=== PATIENT | male | born 1965 | race Caucasian/White ===

== ENCOUNTER 2017-04-22 11:00 | Outpatient (RCR) | payer BC, SELFPAY | END 2017-04-22 17:00 | disposition home or self-care (01) | LOC: PT 11:00 | PROVIDERS: Family Provider Physician Assistant; Visit Provider Physician Assistant | DX: M54.41 Lumbago with sciatica, right side (principal) | CPT/HCPCS: 97010; 97012; 97014; 97035; 97110; G0283 ==

== ENCOUNTER → 2017-11-10 11:04 | Outpatient (REF) | payer BC, SELFPAY ==
[2017-11-10 13:46] LABS: Basophils # 0.1 K/mm3 (0-0.2); Basophils % 1.3 % (0.1-2.0); Eosinophils # 0.3 K/mm3 (0.0-0.4); Eosinophils % 4.4 % (0.1-12.0); Hematocrit 51.4 % (42.0-52.0); Hemoglobin 17.2 g/dL (14.1-18.0); Lymphocytes # 1.6 K/mm3 (0.7-4.5); Lymphocytes % 25.2 K/mm3 (10-50); Mean Corpuscular HGB Conc 33.4 g/dL (31.8-35.4); Mean Corpuscular Hemoglobin 31.9 pg (27.0-31.2); Mean Corpuscular Volume 95.5 fl (80-94); Mean Platelet Volume 7.5 fl (7.4-10.4); Monocytes # 0.4 K/mm3 (0.1-1.0); Monocytes % 5.9 % (1.7-9.3); Neutrophils % 63.3 % (37.0-80.0); Platelet Count 242 K/mm3 (142-424); Red Blood Count 5.39 M/mm3 (4.60-6.20); Red Cell Distribution Width 13.3 % (11.5-17.5); White Blood Count 6.3 K/mm3 (4.8-10.8)
[2017-11-10 15:35] LABS: Chol/HDL Ratio 4.3 (1-3.5); Cholesterol 239 mg/dL (140-200); HDL Cholesterol 56 mg/dL (27-67); LDL Cholesterol 162 mg/dL (0-130); Triglycerides 107 mg/dL (30-200); VLDL Cholesterol 21 mg/dL (0-40)
[2017-11-10 15:42] LABS: Alanine Aminotransferase 83 U/L (12-78); Albumin Level 3.7 gm/dL (3.4-5.0); Albumin/Globulin Ratio 0.9 (1.1-1.8); Alkaline Phosphatase 146 U/L (46-116); Anion Gap 15.8 mEq/L (5-15); Aspartate Amino Transferase 53 U/L (15-37); Bilirubin,Total 0.5 mg/dL (0.2-1.0); Blood Urea Nitrogen 8 mg/dL (7-18); Calcium 8.9 mg/dL (8.5-10.1); Carbon Dioxide 24 mmol/L (21.0-32.0); Chloride 105 mmol/L (98-107); Creatinine,Serum 0.69 mg/dL (0.70-1.30); Estimated Glomerular Filt Rate 120 ml/min (>60); GFR (African American) 145 ML/MIN (>60); Globulin 4.2 gm/dl (1.3-3.2); Glucose 200 mg/dL (74-106); Potassium 4.8 mmoL/L (3.5-5.1); Sodium 140 mmol/L (136-145); T4 (Thyroxine) 9.2 ug/dl (4.7-13.3); Thyroid Stimulating Hormone 1.15 uIU/ml (0.358-3.740); Total Protein,Serum 7.9 gm/dL (6.4-8.2)
[2017-11-10 17:49] LABS: Hemoglobin A1C 8.3 % (0.0-7.0)
[2017-11-10 19:03] LABS: Amphetamine/Metha Screen,Urine Negative ng/mL (<1000); Barbiturates Screen,Urine Negative ng/mL (<200); Benzodiazepines Screen,Urine Negative ng/mL (<200); Cannabinoid Screen,Urine Positive ng/mL (<50); Cocaine Screen,Urine Negative ng/mL (<300); Methadone Screen,Urine Negative ng/mL (<300); Opiate Screen,Urine Negative ng/mL (<300); Phencyclidine Screen,Urine Negative ng/mL (<25)
== END ==
LOC: LAB 11:04
PROVIDERS: Visit Provider Nurse Practitioner Family
DX: E11.9 Type 2 diabetes mellitus without complications (principal); Z79.899 Other long term (current) drug therapy; G62.9 Polyneuropathy, unspecified
CPT/HCPCS: 80053; 80061; 80305; 82043; 83036; 84436; 84443; 85025

== ENCOUNTER → 2018-01-19 07:44 | Outpatient (CLI) | payer BC, SELFPAY ==
--- NOTE | 2018-01-19 07:45 | US_ITS ---
US abdomen limited History: Ordering Physician:JUSTYNA Rodriguez Patient Age: 52 years Comparison:None Findings: Pancreas:Unremarkable. No obvious mass or abnormal fluid collection. No ductal dilatation Liver:No focal liver lesions demonstrated. Homogeneous echogenicity. No intrahepatic biliary ductal dilatation evident. There is some scattered areas of increased echogenicity in the liver consistent with areas of fatty involvement. Right Kidney:Unremarkable. Normal size and echogenicity. No hydronephrosis Gallbladder:No gallstones, gallbladder wall thickening, pericholecystic fluid, or biliary dilatation. Impression: 1. Mild fatty liver. 2. Otherwise negative right upper quadrant ultrasound
== END ==
PROVIDERS: PCP Physician Assistant; Visit Provider Physician Assistant
DX: R94.5 Abnormal results of liver function studies (principal)
CPT/HCPCS: 76705

== ENCOUNTER → 2018-02-16 15:48 | Outpatient (CLI) | payer BC, SELFPAY ==
[2018-02-17 12:07] LABS: Basophils # 0.1 K/mm3 (0-0.2); Basophils % 1.5 % (0.1-2.0); Eosinophils # 0.2 K/mm3 (0.0-0.4); Eosinophils % 2.7 % (0.1-12.0); Hematocrit 48.8 % (42.0-52.0); Hemoglobin 15.8 g/dL (14.1-18.0); Lymphocytes % 31.9 % (10-50); Mean Corpuscular HGB Conc 32.4 g/dL (31.8-35.4); Mean Corpuscular Volume 98.8 fl (80-94); Monocytes # 0.5 K/mm3 (0.1-1.0); Monocytes % 7.5 % (1.7-9.3); Neutrophils # 3.6 K/mm3 (1.8-7.8); Neutrophils % 56.4 % (37.0-80.0); Platelet Count 255 K/mm3 (142-424); Red Blood Count 4.94 M/mm3 (4.60-6.20); Red Cell Distribution Width 13.9 % (11.5-17.5); White Blood Count 6.3 K/mm3 (4.8-10.8)
[2018-02-17 12:29] LABS: Alanine Aminotransferase 79 U/L (12-78); Albumin Level 3.5 gm/dL (3.4-5.0); Albumin/Globulin Ratio 0.9 (1.1-1.8); Alkaline Phosphatase 159 U/L (46-116); Aspartate Amino Transferase 50 U/L (15-37); Bilirubin,Total 0.6 mg/dL (0.2-1.0); Blood Urea Nitrogen 12 mg/dL (7-18); Calcium 8.8 mg/dL (8.5-10.1); Carbon Dioxide 26 mmol/L (21.0-32.0); Chloride 102 mmol/L (98-107); Chol/HDL Ratio 4.3 (1-3.5); Cholesterol 216 mg/dL (140-200); Creatinine,Serum 0.73 mg/dL (0.70-1.30); Estimated Glomerular Filt Rate 112 ml/min (>60); GFR (African American) 135 ML/MIN (>60); Globulin 3.9 gm/dl (1.3-3.2); Glucose 137 mg/dL (74-106); HDL Cholesterol 50 mg/dL (27-67); LDL Cholesterol 143 mg/dL (0-130); Sodium 140 mmol/L (136-145); T4 (Thyroxine) 9.6 ug/dl (4.7-13.3); Thyroid Stimulating Hormone 1.45 uIU/ml (0.358-3.740); Total Protein,Serum 7.4 gm/dL (6.4-8.2); Triglycerides 115 mg/dL (30-200); VLDL Cholesterol 23 mg/dL (0-40)
[2018-02-18 10:58] LABS: Vitamin D 25 Hydroxy 9.6 ng/mL (30.0-100.0)
== END ==
PROVIDERS: Visit Provider Physician Assistant
DX: G62.9 Polyneuropathy, unspecified (principal); E78.5 Hyperlipidemia, unspecified
CPT/HCPCS: 80053; 80061; 82652; 84436; 84443; 85025

== ENCOUNTER → 2018-05-16 18:39 | Outpatient (CLI) | payer BC, SELFPAY ==
[2018-05-16 18:56] LABS: Basophils # 0.1 K/mm3 (0-0.2); Basophils % 1.5 % (0.1-2.0); Eosinophils # 0.2 K/mm3 (0.0-0.4); Eosinophils % 3.5 % (0.1-12.0); Hematocrit 44.9 % (42.0-52.0); Hemoglobin 15.5 g/dL (14.1-18.0); Lymphocytes # 1.8 K/mm3 (0.7-4.5); Lymphocytes % 29.2 % (10-50); Mean Corpuscular HGB Conc 34.5 g/dL (31.8-35.4); Mean Corpuscular Hemoglobin 32.9 pg (27.0-31.2); Mean Corpuscular Volume 95.4 fl (80-94); Mean Platelet Volume 7.7 fl (7.4-10.4); Monocytes # 0.4 K/mm3 (0.1-1.0); Monocytes % 6.3 % (1.7-9.3); Neutrophils # 3.7 K/mm3 (1.8-7.8); Neutrophils % 59.6 % (37.0-80.0); Platelet Count 229 K/mm3 (142-424); Red Blood Count 4.71 M/mm3 (4.60-6.20); Red Cell Distribution Width 12.9 % (11.5-17.5); White Blood Count 6.2 K/mm3 (4.8-10.8)
[2018-05-16 19:14] LABS: Alanine Aminotransferase 68 U/L (12-78); Albumin Level 3.3 gm/dL (3.4-5.0); Albumin/Globulin Ratio 0.8 (1.1-1.8); Alkaline Phosphatase 155 U/L (46-116); Anion Gap 17.2 mEq/L (5-15); Aspartate Amino Transferase 62 U/L (15-37); Bilirubin,Total 0.4 mg/dL (0.2-1.0); Blood Urea Nitrogen 9 mg/dL (7-18); Calcium 8.8 mg/dL (8.5-10.1); Carbon Dioxide 27 mmol/L (21.0-32.0); Chloride 99 mmol/L (98-107); Chol/HDL Ratio 3.3 (1-3.5); Cholesterol 163 mg/dL (140-200); Creatinine,Serum 0.64 mg/dL (0.70-1.30); Estimated Glomerular Filt Rate 130 ml/min (>60); GFR (African American) 158 ML/MIN (>60); Glucose 170 mg/dL (74-106); HDL Cholesterol 49 mg/dL (27-67); LDL Cholesterol 87 mg/dL (0-130); Potassium 4.2 mmoL/L (3.5-5.1); Sodium 139 mmol/L (136-145); T4 (Thyroxine) 8.8 ug/dl (4.7-13.3); Thyroid Stimulating Hormone 1.12 uIU/ml (0.358-3.740); Total Protein,Serum 7.3 gm/dL (6.4-8.2); Triglycerides 134 mg/dL (30-200); VLDL Cholesterol 27 mg/dL (0-40)
[2018-05-16 20:07] LABS: Hemoglobin A1C 7.1 % (0.0-7.0)
[2018-05-18 13:07] LABS: PSA, Free 0.17 ng/mL; Prostate Specific Ag 0.4 ng/mL (0.0-4.0); Vitamin D 25 Hydroxy 44.7 ng/mL (30.0-100.0)
== END ==
PROVIDERS: Visit Provider Physician Assistant
DX: E11.9 Type 2 diabetes mellitus without complications (principal); G62.9 Polyneuropathy, unspecified; Z79.84 Long term (current) use of oral hypoglycemic drugs
CPT/HCPCS: 80053; 80061; 82652; 83036; 84153; 84154; 84436; 84443; 85025

== ENCOUNTER → 2018-07-18 15:06 | Outpatient (CLI) | payer BC, SELFPAY ==
--- NOTE | 2018-07-18 15:08 | MR_ITS ---
MR lumbar spine wo con, MR 3-d myelogram/MRCP HISTORY: PT states mass on back on LT side. HX lumbar surgery X2YRS. Weakness in LT leg. Pain in LT hip and leg. Numbness in left leg from knee down. ITS.REASON: LOCALIZED SWELLING, MASS AND LUMP, TRUNK ORDERING PHYSICIAN: Bre Rodriguez APRN PATIENT AGE: 52 years Comparison: MRI 01-25-17 TECHNIQUE: Standard multiplanar multiecho sequences are performed without contrast. 3-D MIP and myelographic images are also rendered and reviewed FINDINGS: There is normal alignment. The spinal cord ends at the L1 level. T11-T12: Mild degenerative disc disease. T12-L1: Mild degenerative disc disease. L1-L2: Unremarkable. L2-L3: Mild facet and ligamentum flavum hypertrophy with mild bilateral lateral recess narrowing. L3-L4: Mild facet ligamentum flavum hypertrophy with mild degenerative disc disease and mild bilateral lateral recess and foraminal narrowing. L4-L5: There is an area of isointense T1 and T2 signal in the right paracentral foraminal region which may be related to residual or recurrent disc herniation. Epidural fibrosis would be included in the differential diagnosis in this patient with prior lumbar surgery. Consider repeat exam with gadolinium enhancement for differentiation. There is impingement upon the right L5 nerve root with moderate right lateral recess and foraminal narrowing. Facet and ligamentum hypertrophy is also present at this level with mild left lateral recess and foraminal narrowing. There is some mild bone marrow edema involving the inferior endplate of L4 posteriorly L5-S1: Mild bulging disc with mild facet and ligamentum flavum hypertrophy with mild bilateral foraminal narrowing. IMPRESSION: 1. Residual or recurrent disc herniation at L4-L5 right paracentral/foraminal region as described above. This is impinging upon the L5 nerve root. Epidural fibrosis is included in the differential diagnosis. Repeat exam with gadolinium enhancement may be of further value. 2. Lumbar spondylosis with facet and ligamentum flavum hypertrophy and degenerative disc disease with lateral recess and foraminal narrowing. Please see above for detailed description at each level. 3. No obvious soft tissue mass evident in the areas imaged.. It is unknown exactly where the patients reported palpable abnormality is as it is not made clear on the history sheet and not marked by the technologist
== END ==
PROVIDERS: PCP Nurse Practitioner Family; Visit Provider Nurse Practitioner Family
DX: R22.2 Localized swelling, mass and lump, trunk (principal)
CPT/HCPCS: 72148; 76376

== ENCOUNTER → 2019-07-02 07:39 | Outpatient (CLI) | payer BC, SELFPAY ==
--- NOTE | 2019-07-02 07:44 | US_ITS ---
PROCEDURE: US ABDOMEN LIMITED CLINICAL INDICATION: WEIGHT LOSS Weight loss COMPARISON: [facility] US abdomen limited from 01/19/2018 FINDINGS: PANCREAS: The tail the pancreas is not well delineated due overlying bowel gas. There is questionable mass or cystic collection in the tail the pancreas. Suggest CT with out and with contrast with pancreatic protocol for further evaluation. This area measures approximately 2.4 cm. LIVER: No focal liver lesions demonstrated. Homogeneous echogenicity. No intrahepatic biliary ductal dilatation evident. There is appropriate direction of blood flow within a non dilated portal vein RIGHT KIDNEY: Unremarkable. Normal size and echogenicity. No hydronephrosis GALLBLADDER: No gallstones, gallbladder wall thickening, pericholecystic fluid, or biliary dilatation. IMPRESSION: Possible mass or cyst in the pancreatic tail. Suggest CT with pancreatic protocol without and with contrast for further evaluation. Dictated by: Roger Varela MD 07/02/2019 10:45 Electronically signed by Roger Varela MD in [place] 07/02/2019 10:45
--- NOTE | 2019-07-02 07:46 | XR_ITS ---
PROCEDURE: XR CHEST 2V CLINICAL HISTORY: ABNORMAL WEIGHT LOSS COMPARISON: CXR CHEST(2 VIEWS-NOT PORTABLE) from 04/14/2015 [facility] CTA-CHEST from 12/02/2015 CXR CHEST(2 VIEWS-NOT PORTABLE) from 12/02/2015 FINDINGS: The cardiomediastinal silhouette and pulmonary vascularity are within normal limits. The lungs are clear without infiltrates, suspicious nodules, or pleural effusions. No acute bony abnormalities. IMPRESSION: No acute findings. Dictated by: Dr. Jonah Piper MD 07/02/2019 08:[address] Jonah Piper MD in [place] 07/02/2019 08:08
== END ==
PROVIDERS: PCP Nurse Practitioner Family; Visit Provider Nurse Practitioner Family
DX: R63.4 Abnormal weight loss (principal)
CPT/HCPCS: 71046; 76705

== ENCOUNTER → 2019-07-04 12:03 | Outpatient (CLI) | payer BC, SELFPAY ==
--- NOTE | 2019-07-04 12:09 | CT_ITS ---
PROCEDURE: CT ABDOMEN WO/W CON CLINICAL HISTORY: NEOPLASM Weight loss, possible pancreatic mass noted on recent ultrasound COMPARISON: US ABDOMEN LIMITED from 07/02/2019 TECHNIQUE: Images are obtained without and with contrast utilizing 75 mL Optiray 350 and oral Gastrografin Axial images obtained with sagittal and coronal reformats. All CT scans at the facility use one or more dose reduction, viz: automated exposure control, ma/kV adjustment per patient size (including targeted exams where dose is matched to indication, i.e. head), or iterative reconstruction technique. FINDINGS: There are minimal atelectatic changes in the left lung base. No focal liver lesion. There is some minimal lobularity of the hepatic surface along the inferior aspect of the right hepatic lobe of questionable clinical significance. Please correlate with liver function test. The spleen, adrenal glands, and kidneys have an unremarkable appearance. No renal or ureteral calculi. No pancreatic mass evident. There is some fullness in the tail the pancreas however no definite mass is evident. There are few small peripancreatic and periportal lymph nodes. No acute bony anomalies. The pelvis is not included on this exam. There are degenerative changes of the thoracic and lumbar spine IMPRESSION: . 1. No evidence of pancreatic mass. 2. Minimal lobularity of the hepatic surface which could be seen with early cirrhosis. Please correlate with appropriate clinical findings. Dictated by: Roger Varela MD 07/05/2019 14:10 Electronically signed by Roger Varela MD in [facility] 07/05/2019 14:10
[2019-07-04 13:12] LABS: Chloride 95 mmol/L (98-107); Potassium 4.5 mmoL/L (3.5-5.1); Sodium 130 mmol/L (136-145)
[2019-07-04 13:15] LABS: Anion Gap 11.5 mEq/L (5-15); Blood Urea Nitrogen 10 mg/dl (9-20); Carbon Dioxide 28 mmol/L (22.0-30.0); Estimated Glomerular Filt Rate 140 ml/min (>60); GFR (African American) 169 ML/MIN (>60)
[2019-07-04 13:16] LABS: Calcium 9.6 mg/dl (8.4-10.2); Glucose 143 mg/dl (74-100)
[2019-07-05 11:16] LABS: CEA 4.2 ng/mL (0.0-4.7)
== END ==
PROVIDERS: PCP Nurse Practitioner Family; Visit Provider Nurse Practitioner Family
DX: D37.8 Neoplasm of uncertain behavior of other specified digestive organs (principal)
CPT/HCPCS: 36415; 74170; 80048; 82378; Q9967

== ENCOUNTER 2019-07-22 13:45 | Observation (INO) | payer BC, SELFPAY ==
[2019-07-22 13:47] VITALS: BP 133/68; PULSE 78; RESP 18; TEMP 36.7; O2SAT 99; BMI 27.2
--- NOTE | 2019-07-22 13:56 | ECG_ITS ---
APPROVED REPORT Exam: Resting ECG HR:75 bpm ECG Measurements Heart Rate 75 AXES MS 132 P 18 QRSd 86 QRS 39 QT 396 T 60 QTc 442 <Conclusion> Normal sinus rhythm Normal ECG Electronically signed by : Aidan Hartman, 07/23/2019 07:15:22
--- NOTE | 2019-07-22 14:06 | XR_ITS ---
PROCEDURE: XR CHEST 2V CLINICAL HISTORY: weak Generalized weakness, smoker COMPARISON: CXR CHEST(2 VIEWS-NOT PORTABLE) from 04/14/2015 [facility] CTA-CHEST from 12/02/2015 CXR CHEST(2 VIEWS-NOT PORTABLE) from 12/02/2015 XR CHEST 2V from 07/02/2019 FINDINGS: The cardiomediastinal silhouette and pulmonary vascularity are within normal limits. The lungs are clear without infiltrates, suspicious nodules, or pleural effusions. No acute bony abnormalities. IMPRESSION: No acute findings. Dictated by: Roger Varela MD 07/22/2019 15:24 Electronically signed by Roger Varela MD in [facility] 07/22/2019 15:24
[2019-07-22 14:07] LABS: POC Glucose,Bedside 105 (70-110)
--- NOTE | 2019-07-22 14:07 | CT_ITS ---
PROCEDURE: CT HEAD/BRAIN WO CON CLINICAL INDICATION: weakness, lightheaded Headache, generalized weakness, lightheadedness COMPARISON: No exams were available for comparison TECHNIQUE: Axial images obtained. All CT scans at the facility use one or more dose reduction, viz: automated exposure control, ma/kV adjustment per patient size (including targeted exams where dose is matched to indication, i.e. head), or iterative reconstruction technique. FINDINGS: No midline shift, mass effect, intracranial hemorrhage, hydrocephalus, or extra-axial fluid collection is evident. There are encephalomalacia changes in the right cerebellar hemisphere inferiorly consistent with old infarction. The calvarium has an unremarkable appearance. No mastoid effusion. No sinus air-fluid level. IMPRESSION: No acute intracranial findings. Old right cerebellar infarction Dictated by: Roger Varela MD 07/22/2019 15:22 Electronically signed by Roger Varela MD in [facility] 07/22/2019 15:22
[2019-07-22 14:27] LABS: Basophils # 0.1 K/mm3 (0-0.2); Basophils % 1.6 % (0.1-2.0); Eosinophils # 0.4 K/mm3 (0.0-0.4); Eosinophils % 4.2 % (0.1-12.0); Hematocrit 48.1 % (42.0-52.0); Hemoglobin 16.9 g/dL (14.1-18.0); Lymphocytes # 2.7 K/mm3 (0.7-4.5); Lymphocytes % 29.4 % (10-50); Mean Corpuscular HGB Conc 35.1 g/dL (31.8-35.4); Mean Corpuscular Hemoglobin 33.8 pg (27.0-31.2); Mean Corpuscular Volume 96.2 fl (80-94); Mean Platelet Volume 7.1 fl (7.4-10.4); Monocytes # 0.4 K/mm3 (0.1-1.0); Monocytes % 4.3 % (1.7-9.3); Neutrophils # 5.5 K/mm3 (1.8-7.8); Neutrophils % 60.5 % (37.0-80.0); Platelet Count 210 K/mm3 (142-424); Red Cell Distribution Width 13.3 % (11.5-17.5); White Blood Count 9.2 K/mm3 (4.8-10.8)
[2019-07-22 14:30] LABS: Chloride 96 mmol/L (98-107); Sodium 130 mmol/L (136-145)
[2019-07-22 14:33] LABS: Alanine Aminotransferase 57 U/L (12-78); Alkaline Phosphatase 219 U/L (38-126); Aspartate Amino Transferase 59 U/L (17-59); Blood Urea Nitrogen 11 mg/dl (9-20); Creatinine Clearance Estimated 145 mL/min (50-200); Estimated Glomerular Filt Rate 117 ml/min (>60); GFR (African American) 142 ML/MIN (>60)
[2019-07-22 14:34] LABS: Albumin Level 4.3 g/dl (3.5-5.0); Albumin/Globulin Ratio 1.1 (1.1-1.8); Calcium 9.5 mg/dl (8.4-10.2); Carbon Dioxide 28 mmol/L (22.0-30.0); Globulin 3.9 g/dL (1.3-3.2); Glucose 105 mg/dl (74-100); Lactic Acid 1.2 mmol/L (0.7-2.1); Total Protein,Serum 8.2 g/dl (6.3-8.2)
[2019-07-22 14:37] LABS: Ethyl Alcohol < 10 mg/dl (0-10)
[2019-07-22 14:39] LABS: C-Reactive Protein 8.9 mg/L (0-4)
--- NOTE | 2019-07-22 14:42 | HMH.EDWEAK ---
ED Disposition Clinical Impression: Near syncope, Tobacco use Diabetes Qualifiers: Diabetes mellitus type: type 2 Diabetes mellitus penitentiary insulin use: unspecified penitentiary insulin use status Diabetes mellitus complication status: with other specified complication Qualified Code(s): E11.69 - Type 2 diabetes mellitus with other specified complication Disposition: Admitted as Observation Condition on Discharge: Good - Critical Care Critical Care Time: No Attestation: On 07/22/19, the high probability of a clinically significant, sudden or life threatening deterioration of the following system(s) required my full and direct attention, intervention and personal management. The time I documented below is in addition to time spent performing reported procedures but includes the following listed in this critical care notation. Medical Decision Making - Medical Records Medical records reviewed: Yes: I reviewed the patient's medical records. - Delbert Inquiry Pt receiving controlled substance: No Vital Signs: 07/22/19 13:47 Temperature 98.1 F Temperature Source Oral Pulse Rate [Right] 78 Respiratory Rate 18 Blood Pressure [Right Arm] 133/68 Blood Pressure Mean [Right Arm] 89 02 Sat by Pulse Oximetry 99 - Lab Data Lab results reviewed: Yes: I reviewed the patient's lab results. Lab Results 07/22/19 13:56: POC Glucose 105 07/22/19 14:08: WBC 9.2, RBC 5.00, Hgb 16.9, Hct 48.1, MCV 96.2 H, MCH 33.8 H, MCHC 35.1, RDW 13.3, Plt Count 210, MPV 7.1 L, Neut % (Auto) 60.5, Lymph % (Auto) 29.4, [place] % (Auto) 4.3, Eos % (Auto) 4.2, Baso % (Auto) 1.6, Neut # (Auto) 5.5, Lymph # (Auto) 2.7, [place] # (Auto) 0.4, Eos # (Auto) 0.4, Baso # (Auto) 0.1, ESR 14 07/22/19 14:08: Sodium 130 L, Potassium 4.0, Chloride 96 L, Carbon Dioxide 28, Anion Gap 10.0, BUN 11, Creatinine 0.70, Estimated Creat Clear 145, Estimated GFR 117, Est GFR ( Amer) 142, Glucose 105 H, Calcium 9.5, Total Bilirubin 1.0, AST 59, ALT 57, Alkaline Phosphatase 219 H, Troponin I < 0.01, C-Reactive Protein 8.9 H, Total Protein 8.2, Albumin 4.3, Globulin 3.9 H, Albumin/Globulin Ratio 1.1 07/22/19 14:08: Lactate 1.2 07/22/19 14:08: Plasma/Serum Alcohol < 10 07/22/19 14:40: Urine Color Yellow, Urine Appearance Clear, Urine pH 6.0, Ur Specific Buckley 1.010, Urine Protein Negative, Urine Glucose (UA) Negative, Urine Ketones Negative, Urine Blood Negative, Urine Nitrate Negative, Urine Bilirubin Negative, Urine Urobilinogen 1.0, Ur Leukocyte Esterase Negative, Urine RBC Occasional, Urine WBC None, Ur Squamous Epith Cells Occasional, Urine Bacteria None 07/22/19 14:40: Urine Opiates Screen Negative, Urine Methadone Screen Negative, Ur Barbituates Screen Negative, Ur Phencyclidine Scrn Negative, Ur Amphetamines Screen Negative, U Benzodiazepines Scrn Negative, Urine Cocaine Screen Negative, U Marijuana (THC) Screen Positive H Result diagrams: 07/22/19 14:08 07/22/19 14:08 Orders (Tests/Meds): ED MEDICATIONS Generic Name Dose Route Start Last Admin Trade Name Freq PRN Reason Stop Dose Admin Sodium Chloride 1,000 mls @ 999 mls/hr 07/22/19 14:15 07/22/19 14:45 Sod Chlor 0.9% 1000ml Bag IV 07/22/19 15:15 999 mls/hr .Q1H1M NESS Administration ORDERS Category Date Time Status XR chest 2V Stat Exams 07/22/19 14:06 Taken Troponin I Q3H Lab 07/22/19 17:15 Ordered Troponin I Q3H Lab 07/22/19 20:15 Ordered Blood Culture Stat Micro 07/22/19 14:08 Received - Radiology Data #1 Image(s): Chest Image Reviewed: Yes I reviewed the patient's radiology image Preliminary Findings: Normal/NAD - CT Data CT Scan: Head Time Received: 15:[address] Reviewed: Yes: I have viewed the radiologist's interpretation Preliminary Findings: Normal/NAD - ECG Data Tracing #1 Normal Sinus Rhythm: Yes Ischemic changes: non-specific ST-T wave changes - Physician Consults Physician Consulted: [email or web address] Reason -: Admission - Reevaluation(s) Time: 15:31
[2019-07-22 14:43] LABS: Microscopic, Urine URINE MICROSCOPIC (MICROSCOPIC)
[2019-07-22 14:45] LABS: Appearance,Urine CLEAR (Clear); Bilirubin,Urine Negative (Negative); Blood, Urine Negative (Negative); Color,Urine YELLOW (Yellow); Glucose,Urine (UA) Negative (Negative); Ketones,Urine Negative (Negative); Leukocyte Esterase,Urine Negative (Negative); Nitrate,Urine Negative (Negative); Protein,Urine Negative (Negative)
--- NOTE | 2019-07-22 14:45 | PC.NURSE ---
PAGING DR HARRIS AT THIS TIME
[2019-07-22 14:48] LABS: Troponin I < 0.01 ng/ml (0.00-0.034)
[2019-07-22 14:57] LABS: Barbiturates Screen,Urine Negative ng/ml (<200); Benzodiazepines Screen,Urine Negative ng/ml (<200)
[2019-07-22 14:58] LABS: Amphetamine/Metha Screen,Urine Negative ng/ml (<1000); Cannabinoid Screen,Urine Positive ng/ml (<50)
[2019-07-22 14:59] LABS: Cocaine Screen,Urine Negative ng/ml (<300)
[2019-07-22 15:00] LABS: Methadone Screen,Urine Negative ng/ml (<300); Opiate Screen,Urine Negative ng/ml (<300)
[2019-07-22 15:01] LABS: Erythrocyte Sedimentation Rate 14 mm/hr (0-20)
[2019-07-22 15:01] LABS: Phencyclidine Screen,Urine Negative ng/ml (<25)
[2019-07-22 15:03] LABS: RBC,Urine Occasional #/hpf (0-3); Squamous Epithelial Cell,Urine Occasional #/hpf (0-5)
--- NOTE | 2019-07-22 15:06 | PC.NURSE ---
CALLED CHARGE NURSE FOR BED ASSIGNMENT. PATIENT WILL BE ADMITTED TO ROOM 208. ER STAFF NOTIFIED AT THIS TIME.
[2019-07-22 15:41] VITALS: BP 116/78; PULSE 66; RESP 20; TEMP 36.6; O2SAT 98
[2019-07-22 16:00] VITALS: BP 117/69; PULSE 64; RESP 20; TEMP 36.9; O2SAT 100; BMI 26.2
[2019-07-22 16:01] VITALS: PULSE 89
--- NOTE | 2019-07-22 16:23 | HMH.HP ---
*Admission Date: 07/22/19 *Chief complaint: Weakness *History of present illness: This 53-year-old white male came to the emergency room after having an episode where he felt quite weak and wondered if he was having some heart rhythm disturbance. He did not experience chest pain or shortness of breath. The patient does not have known heart disease. He does however describe a heart catheterization 40 years ago due to a suspected anomaly. Apparently the study was normal. He is diabetic and he smokes cigars. He has had hypertension for about 20 years. [facility] History Medical History: Reports:: Diabetes Mellitus Type 2, Hypertension Denies:: Atrial Fibrillation, Cardiomyopathy, Congestive Heart Failure, Palpitations *Have you ever received a pneumonia vaccine?: No *Have you received a flu vaccine this season?: No Other Medical History: Reports: Liver Disease (Cirrhosis). Denies: Hypothyroidism, Thyroid Disease Laterality Cases: Right: Other (Testicular torsion, corrected surgically) Other Surgeries: Yes: Colonoscopy, Colon Resection (Due to diverticulitis. 11 inches of colon he states), Other (Back surgery for degenerative disc disease lumbosacral. 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) Housing: house *Travel in the last 8 weeks: None Family Hx:: Cancer (A sister of cancer), Coronary Artery Disease (Mother and father), Diabetes (Father and sister), Heart Attack (Mother and father), Hypertension, Substance abuse (A brother of drug abuse), Other (A sister of lupus, diabetes, heart disease) Review of Systems - Constitutional Reports lack of energy, Reports weakness, Denies anorexia, Denies body ache(s), Denies chills - Eyes Denies change in vision - *Cardiovascular Reports rapid, pounding, or irregular heartbeat (Pounding), Reports fast heart rate (Possibly), Denies chest pain, Denies irregular heart rhythm, Denies radiating jaw, neck or arm pain - *Respiratory Denies cough - *Gastrointestinal Denies abdominal pain, Denies constipation, Denies loose stools - *Genitourinary Denies difficulty urinating - *Musculoskeletal Reports back pain, Reports radiating pain into limb - Integumentary/Breasts Denies unusual bruising - *Neurologic Reports dizziness, Reports weakness, Denies seizure-like activity, Denies localized weakness, Denies fainting - Psychiatric Denies confusion, Denies depression - Endocrine Reports rapid, pounding, or irregular heartbeat - Allergic/Immunologic Denies wheezing Meds Home Medications Medication Instructions Recorded Confirmed Type Amlodipine Besylate [Norvasc 5mg 5 mg PO QDAY 07/22/19 07/22/19 History tablet] Atorvastatin Calcium [Atorvastatin 10 mg PO DAILY 07/22/19 07/22/19 History 10mg Tab] Lisinopril/Hydrochlorothiazide 20 mg PO DAILY 07/22/19 07/22/19 History [Lisinopril-Hctz 20-12.5 mg Tab] Metformin HCl [Metformin 1000mg 1,000 mg PO BID 07/22/19 07/22/19 History Tablets] Allergies Allergy/AdvReac Type Severity Reaction Status Date / Time morphine Allergy Intermediate I-HIVES Verified 05/16/18 15:29 Exam Vital signs and Labs for Last 24 Hours: Temp Pulse Resp BP Pulse Ox 98.5 F 64 20 117/69 100 07/22/19 16:00 07/22/19 16:00 07/22/19 16:00 07/22/19 16:00 07/22/19 16:00 Laboratory Results - last 24 hr 07/22/19 13:56: POC Glucose 105 07/22/19 14:08: WBC 9.2, RBC 5.00, Hgb 16.9, Hct 48.1, MCV 96.2 H, MCH 33.8 H, MCHC 35.1, RDW 13.3, Plt Count 210, MPV 7.1 L, Neut % (Auto) 60.5, Lymph % (Auto) 29.4, [place] % (Auto) 4.3, Eos % (Auto) 4.2, Baso % (Auto) 1.6, Neut # (Auto) 5.5, Lymph # (Auto) 2.7, [place] # (Auto) 0.4, Eos # (Auto) 0.4, Baso # (Auto) 0.1, ESR 14
--- NOTE | 2019-07-22 17:56 | PC.NURSE ---
New admission, admitted with near syncope, denies any weakness or dizziness since arrival, sitting in bed eating dinner, no s/s of distress noted, vss, will continue to monitor.
[2019-07-22 18:13] LABS: POC Glucose,Bedside 94 (70-110)
[2019-07-22 18:43] LABS: Troponin I < 0.01 ng/ml (0.00-0.034)
[2019-07-22 20:00] VITALS: BP 130/63; PULSE 60; PULSE 76; RESP 16; TEMP 37.1; O2SAT 96
[2019-07-22 20:33] LABS: POC Glucose,Bedside 264 (70-110)
[2019-07-22 21:36] LABS: Troponin I < 0.01 ng/ml (0.00-0.034)
[2019-07-23] VITALS (17 sets, daily range): BP systolic 114–156; BP diastolic 58–91; PULSE 60–80; RESP 16–18; TEMP 36.5–37.2; O2SAT 96–99; BMI 26.2
--- NOTE | 2019-07-23 | IR_ITS ---
APPROVED REPORT Patient Location: OutpatientInpatient PROCEDURES Left heart catheterization Left ventriculogram Selective coronary angiogram INDICATION Numerous risk factors for coronary artery disease, Syncope, Angina pectoris Informed consent was obtained prior to the procedure. COMPLICATIONS none Estimated Blood Loss: less than 10 mls TECHNIQUE One percent lidocaine used to anesthetize the right anterior aspect of the wrist. The right radial artery was accessed via the Seldinger technique. A 6 Upper Sorbian sheath was placed in the right radial artery. 2.5 mg of verapamil, 800 mcg of nitroglycerin, 1mg Lidocaine and 5000 U Heparin were given through the arterial sheath. The trap catheter was also used to perform left heart catheterization, left ventriculogram and selective coronary angiogram. At the end of the procedure the sheath was removed good hemostasis was achieved using Traclet band, patient was transferred to the postop holding area in stable condition. ANGIOGRAPHIC RESULTS The left main artery Normal The left anterior descending artery Has proximal mild calcification with 30% stenosis. There is a mid vessel 50 to 60% stenosis had a 2.75 mm segment supplying the distal third of the LAD The circumflex artery Is a large dominant vessel with diffuse 10% luminal irregularities The right coronary artery Small nondominant normal The MCCLURE ventriculogram reveals Normal 65% The left ventricular end-diastolic pressure 10 mmHg IMPRESSION Coronary artery disease as described above Normal ejection fraction Normal left ventricular end-diastolic pressure PLAN 1. Aggressive risk factor modification 2. The mid LAD stenosis did not contribute to patient's syncope. 3. LDL less than 55 4. Daily aspirin 5. Avoidance of tobacco products 6. Risk factor modification Electronically signed by : Jasvir Storey, 07/23/2019 13:04:41
--- NOTE | 2019-07-23 05:20 | PC.NURSE ---
shift summary, rested well throughout shift, pt educated on metformin and IV dye interactions, and symptoms of hypoglycemia, no c/o of dizziness
[2019-07-23 05:38] LABS: POC Glucose,Bedside 117 (70-110)
[2019-07-23 06:24] LABS: Chloride 106 mmol/L (98-107); Potassium 4.3 mmoL/L (3.5-5.1); Sodium 134 mmol/L (136-145)
[2019-07-23 06:25] LABS: Basophils # 0.1 K/mm3 (0-0.2); Monocytes # 0.3 K/mm3 (0.1-1.0); Neutrophils # 2.5 K/mm3 (1.8-7.8)
[2019-07-23 06:27] LABS: Anion Gap 6.3 mEq/L (5-15); Blood Urea Nitrogen 10 mg/dl (9-20); Carbon Dioxide 26 mmol/L (22.0-30.0); Cholesterol 129 mg/dl (140-200); Creatinine Clearance Estimated 163 mL/min (50-200); Estimated Glomerular Filt Rate 140 ml/min (>60); GFR (African American) 169 ML/MIN (>60); Glucose 126 mg/dl (74-100); Triglycerides 67 mg/dl (30-150); VLDL Cholesterol 13 mg/dL (0-40)
[2019-07-23 06:28] LABS: Chol/HDL Ratio 2.3 (1-3.5); HDL Cholesterol 57 mg/dl (40-60); Magnesium 2.2 mg/dl (1.6-2.3)
[2019-07-23 06:34] LABS: Basophils % 1.8 % (0.1-2.0); Eosinophils # 0.3 K/mm3 (0.0-0.4); Eosinophils % 6.5 % (0.1-12.0); Hematocrit 42.9 % (42.0-52.0); Lymphocytes # 1.8 K/mm3 (0.7-4.5); Lymphocytes % 35.5 % (10-50); Mean Corpuscular HGB Conc 34.7 g/dL (31.8-35.4); Mean Corpuscular Hemoglobin 33.5 pg (27.0-31.2); Mean Corpuscular Volume 96.8 fl (80-94); Mean Platelet Volume 7.2 fl (7.4-10.4); Monocytes % 6.2 % (1.7-9.3); Platelet Count 169 K/mm3 (142-424); Red Blood Count 4.43 M/mm3 (4.60-6.20); Red Cell Distribution Width 13.3 % (11.5-17.5)
[2019-07-23 06:37] LABS: Hemoglobin 14.9 g/dL (14.1-18.0)
[2019-07-23 06:38] LABS: Direct LDL Cholesterol 71.28 mg/dL (100-129)
[2019-07-23 06:57] LABS: Calcium 8.4 mg/dl (8.4-10.2)
--- NOTE | 2019-07-23 07:23 | P.CONPHA_ITS ---
[facility] Pharmacy VTE Monitoring - Patient Demographics Admission date: 07/22/19 Report Date: 07/23/19 (N) Time: 07:23 Allergies/Adverse Reactions: Patient Allergies morphine Allergy (Intermediate, Verified 05/16/18 15:29) I-HIVES Height: 1.78 m Weight: 83.092 kg Patient Problems: Current Active Problems Near syncope (Acute) Tobacco use (Acute) Diabetes (Chronic) - VTE Risk Labs: VTE Related Lab Results Hgb 14.9 g/dL (14.1-18.0) D 07/23/19 05:52 Hct 42.9 % (42.0-52.0) 07/23/19 05:52 Plt Count 169 K/mm3 (142-424) 07/23/19 05:52 BUN 10 mg/dl (9-20) 07/23/19 05:30 Creatinine 0.60 mg/dl (0.66-1.25) L 07/23/19 05:30 Estimated Creat Clear 163 mL/min (50-200) 07/23/19 05:30 Was VTE Risk Assessment Performed: Yes VTE Score: 1 VTE Risk Level: Very Low Risk Clinical Trial Participant: No - Prophylaxis VTE Prophylaxis Ordered?: Yes Types of VTE Prophylaxis: TEDS Knee High
--- NOTE | 2019-07-23 07:44 | HMH.CNCARD ---
History of Present Illness Consult date: 07/23/19 Requesting physician: Shyanne Lou Chief complaint: weakness, palpitations Additional Medical History:: 1. Hypertension, treated for many years 2. Hyperlipidemia, on statin therapy 3. History of diabetes, treated for about 15 years 4. Tobacco use, x30 years with history of 1.5 packs/day, currently smoking cigars A. Abdominal CT, 07/04/2019, nodularity noted of the liver likely related to cirrhotic changes. 5. History of daily alcohol use (previously drank a case of beer per day, currently drinking 4 to 6 16 ounce beers per day) A. Possible cirrhosis on abdominal CT 6. History of surgeries including back surgery, partial colectomy due to diverticulitis and surgery for testicular torsion 7. History of CVA approximately 2017 with interruption in speech that resolved within [address] of the head, O07/22/2019, old right cerebellar infarct noted. 8. History of cardiac catheterization approximately 2004 for possible hole in his heart, reportedly cardiac cath was without abnormality. History of present illness: 53-year-old white male with history as noted above presented to the emergency department for evaluation of severe weakness, feeling his heart beating and lightheadedness. Symptoms onset while at work around 10 AM yesterday prompting him to leave work 30 minutes later. Patient went home and symptoms did not improve after taken a nap and even included some chest tightness without diaphoresis or significant change in breathing. Patient was evaluated in the ER and admitted for observation. Troponins overnight have returned normal. EKG is sinus rhythm with no acute ST segment changes. Telemetry is revealed no arrhythmias overnight. Cardiology was consulted for evaluation recommendation. Patient does relate a questionable abnormality of his heart on cardiac testing approximately 15 years ago with resultant referral for cardiac catheterization that reportedly was unremarkable in [place], [place]. [facility] History Medical History: Reports:: Coronary Artery Disease, Diabetes Mellitus Type 2, Heart Murmur, Hyperlipidemia, Hypertension Denies:: Atrial Fibrillation, Cardiomyopathy, Congestive Heart Failure, MRSA, Palpitations *Have you ever received a pneumonia vaccine?: No *Have you received a flu vaccine this season?: No Other Medical History: Reports: Liver Disease (Cirrhosis). Denies: Hypothyroidism, Thyroid Disease Laterality Cases: Right: Other (Testicular torsion, corrected surgically) Other Surgeries: Yes: Colonoscopy, Colon Resection (Due to diverticulitis. 11 inches of colon he states), Other (Back surgery for degenerative disc disease lumbosacral. 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) Housing: house Household Members: spouse *Travel in the last 8 weeks: None Family Hx:: Cancer (A sister of cancer), Coronary Artery Disease (Mother and father), Diabetes (Father and sister), Heart Attack (Mother and father), Hypertension, Substance abuse (A brother of drug abuse), Other (A sister of lupus, diabetes, heart disease) Meds Home Medications Medication Instructions Recorded Confirmed Type Amlodipine Besylate [Norvasc 5mg 5 mg PO QDAY 07/22/19 07/22/19 History tablet] Lisinopril/Hydrochlorothiazide 20 mg PO BID 07/22/19 07/22/19 History [Lisinopril-Hctz 20-12.5 mg Tab] Metformin HCl [Metformin 1000mg 1,000 mg PO BID 07/22/19 07/22/19 History Tablets] Potassium Gluconate [Potassium] 99 mg PO DAILY 07/22/19 07/22/19 History Simvastatin 5 mg PO HS 07/23/19 07/23/19 History Allergies Allergy/AdvReac Type Severity React
--- NOTE | 2019-07-23 08:00 | CA_ITS ---
APPROVED REPORT EXAM: Comprehensive 2D, Doppler, and color-flow Echocardiogram Secondary Market Manager: Opal Casanova RDCS Ht: 5 ft 10 in Wt: 190lbs BSA: 2.04 BP: 117/69 mmHg Indications: NEAR SYNCOPE, FATIGUE,HTN 2D Dimensions LVOT 2.00 cm (M/F) 1.5-2.5 M-Mode Dimensions RVDd 2.83 cm (0.9-2.6) LVDd 5.26 cm (3.5-5.7) LVDs 4.22 cm (3.5-5.7) IVSd 0.64 cm (0.6-1.1) PWd 0.64 cm (0.6-1.1) EF (Teich) 40.20% FS 19.80% EDV (Teich) 133.00 mL ESV (Teich) 79.50 mL LV Diastology E/A Ratio 1.28 Mitral Valve MV A Velocity 73.00 (40-130 cm/s) Left Ventricle Left atrium is mildly enlarged, the ventricle is normal size, mild concentric left ventricular hypertrophy, visually estimated ejection fraction 55% with no regional wall motion abnormality, diastolic parameters are within normal range. Right Ventricle Right atrium and right ventricular normal size and contractility. Aortic Valve Aortic valve is minimally thickened and fibrosed. There is no aortic stenosis or aortic insufficiency. Mitral Valve Mitral valve is grossly normal, there is mild mitral regurgitation. Tricuspid Valve Tricuspid valve is grossly normal, there is mild tricuspid regurgitation, tricuspid regurgitation jet versus inadequate for calculation of the right ventricular systolic pressure. Pulmonic Valve Pulmonic valve is poorly visualized. Great Vessels Aortic root is normal size. Pericardium No significant pericardial effusion noted. Conclusion 1. Mildly large left atrium, normal left ventricular size, mild concentric left ventricular hypertrophy, visually estimated ejection fraction 55% with no regional wall motion abnormality, diastolic parameters are within normal range pain 2. Mild mitral and tricuspid regurgitation. 3. No significant pericardial effusion noted. Electronically signed by : Kenroy Herman, 07/23/2019 19:36:30
--- NOTE | 2019-07-23 08:18 | HMH.ACPN2 ---
Internal Medicine - PN: Subj *Date: 07/23/19 *Time: 08:18 Interval history: Patient denies chest pain, palpitations, shortness of breath, and nausea. Cardiology has seen the patient and he will have his cardiac cath this a.m. He states he slept little due to nursing interventions. He would like to go home. Troponin I's have been normal. Exam Vital signs and Labs for Last 24 Hours: Temp Pulse Resp BP Pulse Ox 98.5 F 63 18 132/67 99 07/23/19 08:00 07/23/19 08:00 07/23/19 08:00 07/23/19 08:00 07/23/19 08:00 Laboratory Results - last 24 hr 07/22/19 13:56: POC Glucose 105 07/22/19 14:08: WBC 9.2, RBC 5.00, Hgb 16.9, Hct 48.1, MCV 96.2 H, MCH 33.8 H, MCHC 35.1, RDW 13.3, Plt Count 210, MPV 7.1 L, Neut % (Auto) 60.5, Lymph % (Auto) 29.4, [place] % (Auto) 4.3, Eos % (Auto) 4.2, Baso % (Auto) 1.6, Neut # (Auto) 5.5, Lymph # (Auto) 2.7, [place] # (Auto) 0.4, Eos # (Auto) 0.4, Baso # (Auto) 0.1, ESR 14 07/22/19 14:08: Sodium 130 L, Potassium 4.0, Chloride 96 L, Carbon Dioxide 28, Anion Gap 10.0, BUN 11, Creatinine 0.70, Estimated Creat Clear 145, Estimated GFR 117, Est GFR ( Amer) 142, Glucose 105 H, Calcium 9.5, Total Bilirubin 1.0, AST 59, ALT 57, Alkaline Phosphatase 219 H, Troponin I < 0.01, C-Reactive Protein 8.9 H, Total Protein 8.2, Albumin 4.3, Globulin 3.9 H, Albumin/Globulin Ratio 1.1 07/22/19 14:08: Lactate 1.2 07/22/19 14:08: Plasma/Serum Alcohol < 10 07/22/19 14:40: Urine Color Yellow, Urine Appearance Clear, Urine pH 6.0, Ur Specific Blairs 1.010, Urine Protein Negative, Urine Glucose (UA) Negative, Urine Ketones Negative, Urine Blood Negative, Urine Nitrate Negative, Urine Bilirubin Negative, Urine Urobilinogen 1.0, Ur Leukocyte Esterase Negative, Urine RBC Occasional, Urine WBC None, Ur Squamous Epith Cells Occasional, Urine Bacteria None 07/22/19 14:40: Urine Opiates Screen Negative, Urine Methadone Screen Negative, Ur Barbituates Screen Negative, Ur Phencyclidine Scrn Negative, Ur Amphetamines Screen Negative, U Benzodiazepines Scrn Negative, Urine Cocaine Screen Negative, U Marijuana (THC) Screen Positive H 07/22/19 17:14: POC Glucose 94 07/22/19 18:00: Troponin I < 0.01 07/22/19 20:23: POC Glucose 264 H 07/22/19 21:00: Troponin I < 0.01 07/23/19 05:29: POC Glucose 117 H 07/23/19 05:30: Sodium 134 L, Potassium 4.3, Chloride 106, Carbon Dioxide 26, Anion Gap 6.3, BUN 10, Creatinine 0.60 L, Estimated Creat Clear 163, Estimated GFR 140, Est GFR ( Amer) 169, Glucose 126 H, Calcium 8.4 D, Magnesium 2.2, Triglycerides 67, Cholesterol 129 L, LDL Cholesterol Direct 71.28 L, VLDL Cholesterol 13, HDL Cholesterol 57, Cholesterol/HDL Ratio 2.3 07/23/19 05:52: WBC 5.0 D, RBC 4.43 L, Hgb 14.9 D, Hct 42.9, MCV 96.8 H, MCH 33.5 H, MCHC 34.7, RDW 13.3, Plt Count 169, MPV 7.2 L, Neut % (Auto) 50.0, Lymph % (Auto) 35.5, [place] % (Auto) 6.2, Eos % (Auto) 6.5, Baso % (Auto) 1.8, Neut # (Auto) 2.5, Lymph # (Auto) 1.8, [place] # (Auto) 0.3, Eos # (Auto) 0.3, Baso # (Auto) 0.1 I & O for Last 24 hours: Intake & Output 07/20/19 07/21/19 07/22/19 07/23/19 11:59 11:59 11:59 11:59 Intake Total 2776 / 2776 Output Total 850 / 850 Balance 1926 / 1926 Weight 183 lb 3 oz - Constitutional no acute distress - *Routine Respiratory Exam Present: CTA bilaterally (Anteriorly and posteriorly) - *Routine Cardiovascular Exam Present: RRR - *Routine Abdominal Exam Present: soft, normoactive bowel sounds. Absent: tenderness, distended - *Routine Extremities Exam Absent: edema, calf tenderness - *Routine Neurological Exam Present: alert, oriented X3 Assessment and Plan (1) Near syncope Current visit: Yes Status: Acute Category: Medical Code(s): R55 - Syncope and collapse (2) Tobacco use Current visit: Yes Status: Acute Category: Social Hx Code(s): Z72.0 - Tobacco use (3) Diabetes Current visit: Yes Status: Chronic Qualifiers: Diabetes mellitus type: type 2 Diabetes mellitus
--- NOTE | 2019-07-23 08:54 | US_ITS ---
PROCEDURE: US AORTA CLINICAL INDICATION: ASCVD The the COMPARISON: CT ABDOMEN WO/W CON from 07/04/2019 FINDINGS: There is a mild amount of plaque within the aortoiliac vessels some of which is calcific. There is no evidence of aortic aneurysm. The aorta measures up 2 1.3 cm AP and 1.8 cm transverse. IMPRESSION: No evidence of aortic aneurysm. Atherosclerotic changes Dictated by: Roger Varela MD 07/23/2019 14:04 Electronically signed by Roger Varela MD in [place] 07/23/2019 14:04
--- NOTE | 2019-07-23 09:20 | HMH.PHAINT ---
HOME MEDICATIONS RECONCILED FROM SPEAKING TO PHARMACIST AT [facility].
--- NOTE | 2019-07-23 10:34 | PC.NURSE ---
Radiology personnel at bedside for /S.
[2019-07-23 11:57] LABS: POC Glucose,Bedside 125 (70-110)
--- NOTE | 2019-07-23 12:32 | PC.NURSE ---
Pt leaving floor at 1222 via wheelchair with slab stripper staff.
--- NOTE | 2019-07-23 13:41 | PC.NURSE ---
Pt to department at 1338 via stretcher, A & O X4, VSS. Bed locked and in lowest position with side rails up x2, call light within reach.
[2019-07-23 17:24] LABS: POC Glucose,Bedside 144 (70-110)
--- NOTE | 2019-07-23 17:25 | PC.NURSE ---
RN reassessment completed at 1725. Pt is s/p heart catheterization with no stents. VSS. Pt hopeful that he will be discharged today. Tracelet previously removed by Sena Babb, RN 2x2 and tegaderm dressing present to site at this time with no drainage noted. Lung sounds CTA, no c/o SOA. Abd soft and nondistended with BS active in all quads. Pt denies any pain/discomfort. Pt has not been up since returning to floor from cath but has used the urinal several times to void. Pt sitting up in bed talking with visitor and eating dinner tray, no needs/concerns voiced.
--- NOTE | 2019-07-23 19:09 | PC.NURSE ---
report given to omer
--- NOTE | 2019-07-23 22:54 | HMH.DCSUM ---
General - General Admission date:: 07/22/19 Discharge date: 07/23/19 HPI HPI: This 53-year-old white male came to the emergency room after having an episode where he felt quite weak and wondered if he was having some heart rhythm disturbance. He did not experience chest pain or shortness of breath. The patient does not have known heart disease. He does however describe a heart catheterization 40 years ago due to a suspected anomaly. Apparently the study was normal. He is diabetic and he smokes cigars. He has had hypertension for about 20 years. Hospital Course Hospital Course: The patient was placed on a cardiac rehabilitation program director and cardiology was consulted. 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 He had a chest x-ray showing nothing acute. He was seen by cardiology and they wanted to perform a heart cath. The heart cath showed coronary artery disease with a normal ejection fraction. No stents were placed. Cardiology felt the patient should have aggressive risk factor modification but they did not feel the LAD stenosis contributed to his syncope. They started him on a daily aspirin along with atorvastatin 40 mg daily, and a nicotine patch. They felt he could be discharged home and will need to follow-up with them in 1 week. He did have an echo showing an EF of 55%. Alcohol withdrawal was discussed with the patient and an ultrasound was ordered of his aorta. The aortic ultrasound showed no aneurysm. He was discharged home. Objective Vital signs: Temp Pulse Resp BP Pulse Ox 98.0 F 79 18 136/74 97 07/23/19 18:25 07/23/19 18:25 07/23/19 18:25 07/23/19 18:25 07/23/19 18:25 Narrative: Constitutional no acute distress - *Routine HEENT Exam Head: Present: normocephalic Eye: Present: PERRL. Absent: nystagmus ENT: Present: mucous membranes moist - *Routine Neck Exam Present: supple. Absent: carotid bruit - Routine Chest/Breast/Axilla Exam Chest wall: Absent: tenderness - *Routine Respiratory Exam Present: decreased breath sounds. Absent: respiratory distress - *Routine Cardiovascular Exam Present: RRR, S4 - *Routine Abdominal Exam Present: soft, surgical scars (At umbilicus). Absent: tenderness, organomegaly - *Routine Extremities Exam Absent: edema - *Routine Neurological Exam Present: alert, oriented X3, moving all extremities, hearing grossly intact, normal speech. Absent: motor deficit Results Labs on day of discharge: Labs from last 24 hours 07/23/19 07/23/19 07/23/19 17:13 11:28 05:52 WBC 5.0 D RBC 4.43 L Hgb 14.9 D Hct 42.9 MCV 96.8 H MCH 33.5 H MCHC 34.7 RDW 13.3 Plt Count 169 MPV 7.2 L Neut % (Auto) 50.0 Lymph % (Auto) 35.5 [place] % (Auto) 6.2 Eos % (Auto) 6.5 Baso % (Auto) 1.8 Neut # (Auto) 2.5 Lymph # (Auto) 1.8 [place] # (Auto) 0.3 Eos # (Auto) 0.3 Baso # (Auto) 0.1 Sodium Potassium Chloride Carbon Dioxide Anion Gap BUN Creatinine Estimated Creat Clear Estimated GFR Est GFR ( Amer) Glucose POC Glucose 144 H 125 H Calcium Magnesium Triglycerides Cholesterol LDL Cholesterol Direct VLDL Cholesterol HDL Cholesterol Cholesterol/HDL Ratio 07/23/19 07/23/19 05:30 05:29 WBC RBC Hgb Hct MCV MCH MCHC RDW Plt Count MPV Neut % (Auto) Lymph % (Auto) [place] % (Auto) Eos % (Auto) Baso % (Auto) Neut # (Auto) Lymph # (Auto) [place] # (Auto) Eos # (Auto) Baso # (Auto) Sodium 134 L Potassium 4.3 Chloride 106 Carbon Dioxide 26 Anion Gap 6.3 BUN 10 Creatinine 0.60 L Estimated Creat Clear 163 Estimated GFR 140 Est GFR ( Amer) 169 Glucose 126 H POC Glucose 117 H Calcium 8.4 D Magnesium 2.2 Triglycerides 67 Cholesterol 129 L LDL Cholesterol Direct 71.28 L VLDL Cholesterol 13 HDL Cholesterol
== END 2019-07-23 19:45 | disposition home or self-care (01) ==
LOC: ER 13:56 → 2ND 15:33
PROVIDERS: Internal Medicine; Admitting Provider Family Medicine; Emergency Provider Emergency Medicine; PCP Nurse Practitioner Family; Visit Provider Family Medicine
DX: I25.118 Atherosclerotic heart disease of native coronary artery with other forms of angina pectoris (principal); E11.9 Type 2 diabetes mellitus without complications; Z79.84 Long term (current) use of oral hypoglycemic drugs; I10 Essential (primary) hypertension; M51.36 Other intervertebral disc degeneration, lumbar region; F10.10 Alcohol abuse, uncomplicated; Z79.82 Long term (current) use of aspirin; Z79.899 Other long term (current) drug therapy; Z88.5 Allergy status to narcotic agent; Z82.49 Family history of ischemic heart disease and other diseases of the circulatory system
CPT/HCPCS: 36415; 70450; 71046; 76770; 80048; 80053; 80061; 80305; 81001; 82962; 83605; 83735; 84484; 85025; 85651; 86140; 87040; 93005; 93306; 93458; 96365; 99152; 99284; C1725; C1769; G0378; J1644; Q9967

== ENCOUNTER → 2019-08-02 11:16 | Outpatient (CLI) | payer BC, SELFPAY ==
[2019-08-02 14:11] LABS: Coronavirus 19 IgG Antibody Positive (Negative); Coronavirus 19 IgM Antibody Negative (Negative)
== END ==
PROVIDERS: Visit Provider Internal Medicine Gastroenterology
DX: Z01.818 Encounter for other preprocedural examination (principal)
CPT/HCPCS: 36415; 86328

== ENCOUNTER 2019-08-03 08:46 | Day surgery (SDC) | payer BC, SELFPAY ==
[2019-07-31 13:40] VITALS: BMI 26.8
[2019-08-03] VITALS (7 sets, daily range): BP systolic 88–153; BP diastolic 63–85; PULSE 85–97; RESP 18; TEMP 36.1–36.6; O2SAT 94–100
[2019-08-03 09:41] LABS: POC Glucose,Bedside 262 (70-110)
--- NOTE | 2019-08-03 10:23 | HMH.PROC ---
[facility] Procedure Note Procedure Note:: Upper Endoscopy Procedure Report: Esophagogastroduodenoscopy with cold biopsies Endoscopost: Hadley Garrido II, MD Referring Physician: DAX Devries Date of Procedure: August 03, 2019 Equipment: Olympus GIF 180 standard upper endoscope Sedation: MAC sedation Indications: Mr. Mcgill is a 53-year-old gentleman with abnormal weight loss. The patient does state that he had lost nearly 100 pounds since his diverticulitis 11 years ago. However, he has lost an additional 30 pounds in a little over 6 months. He does have some reduced appetite. He reports no abdominal pain or melena. He reports no heartburn, reflux or dysphagia. He has no abdominal pain. This is his first upper endoscopy. He recently had an ultrasound of the abdomen that is reportedly normal. He did have a normal CEA level of 4.2. He had normal hemoglobin 14.9 and hematocrit 42.9. He had elevated liver chemistries/elevated alkaline phosphatase of 219, AST 59 and ALT 57. His total bilirubin was 0.6 and C-reactive protein was 8.9. The patient does smoke 1 pack/day for almost 40 years. Procedure: Prior to the procedure, a history and physical exam was performed, and patient's medications and allergies were reviewed. The risks, benefits and alternatives of the sedation and procedure were discussed with the patient. All questions were answered and informed consent was obtained. The patient was brought to the procedure room. Patient identification and proposed procedure were verified by the physician and the nurse. The patient was placed in a left lateral decubitus position and the scope was passed under direct vision. Throughout the procedure, the patient's blood pressure, pulse, and oxygen saturations were monitored continuously. The upper GI endoscopy was accomplished without difficulty. The patient tolerated the procedure well. Findings: The scope was passed directly into the upper esophagus and advanced to the third portion of the duodenum. The post bulbar duodenum and duodenal bulb were normal with normal mucosa and conniventes. Cold biopsies were taken from the post bulbar duodenum to rule out celiac disease. The scope was withdrawn through a normal duodenal bulb and pylorus into the stomach. There was mild linear reactive gastropathy of the antrum and chronic gastritis of the body and fundus. Biopsies were taken from the antrum and lesser curvature. This was to rule out H. pylori. Upon retroflexion there was no hiatal hernia. The scope was then withdrawn into the esophagus. There were at least 2 tongues of salmon-colored mucosa that were biopsied to rule out Renteria's esophagus. There was no evidence of reflux esophagitis. The remainder of the esophageal mucosa was normal. Impression: 1. Nonerosive GERD 2. Chronic gastritis with mild reactive gastropathy Plan: There was no etiology for the patient's weight loss. Based upon his elevated CRP and alkaline phosphatase elevation, I suspect that he may have granulomatous hepatitis. I will obtain some serologies including SERGEY level, smooth muscle antibody, SOLEDAD, AMA (antimitochondrial antibody), hepatic fibrotic markers. Certainly if these are indicative, I would consider percutaneous liver biopsy.
--- NOTE | 2019-08-03 10:43 | HMH.PROC ---
[facility] Procedure Note Procedure Note:: Colonoscopy Procedure Report: Colonoscopy Endoscopist: Hadley Garrido II, MD Referring physician: DAX Devries Date of Procedure: August 03, 2019 Equipment: Olympus 180 variable stiffness pediatric colonoscope Sedation: MAC sedation Indication: Mr. Mcgill is a 53-year-old gentleman who is here for diagnostic colonoscopy secondary to abnormal weight loss. He had lost 100 pounds since his diverticulitis 11 years ago. He has lost an additional 30 pounds in the last 6 or more months. The patient's recent hemoglobin 14.9 and hematocrit 42.9 were normal. He had a normal CEA of 4.2. He reports some irregular bowel function (constipation alternating with diarrhea). His father had colon cancer at the age of 65. His last colonoscopy has been between 5 and 10 years ago. He reports no abdominal pain or rectal bleeding. He does have an elevated alkaline phosphatase. He is a 40 pack year smoker. Procedure: Prior to the procedure, a history and physical exam was performed, and patient's medications and allergies were reviewed. The risks, benefits and alternatives of the sedation and procedure were discussed with the patient. All questions were answered and informed consent was obtained. The patient was brought to the procedure room. Patient identification and proposed procedure were verified by the physician and the nurse. The patient was placed in a left lateral decubitus position and the scope was passed under direct vision. Throughout the procedure, the patient's blood pressure, pulse, and oxygen saturations were monitored continuously. The colonoscopy was accomplished without difficulty. The patient tolerated the procedure well. Findings: On digital rectal examination there was normal rectal tone. There were no external hemorrhoids. The prostate was 2+, smooth, soft, symmetric without nodules. The colonoscope was introduced through the anal canal to the rectum and advanced to the cecum. The ileocecal valve and appendiceal orifice were identified. The scope was advanced a short distance into the ileum which appeared grossly normal. The scope was then withdrawn into the colon. The cecum, ascending and transverse colon and mucosa were grossly normal. There were scattered diverticuli throughout the descending and sigmoid colon (LEFT colon). The rectum itself was normal. Upon retroflexion within the rectum there were grade 1-2 internal hemorrhoids. The preparation was excellent throughout with Draper Preparation Score of 9. The cecal time was 10 minutes. Impression: 1. Mild left-sided diverticulosis 2. Grade 1-2 internal hemorrhoids Plan: There was no etiology for the patient's abnormal weight loss. I am going to obtain a CT scan of the chest, abdomen and pelvis. Based upon his elevated alkaline phosphatase and elevated C-reactive protein, I do suspect primary autoimmune cholangitis or granulomatous hepatitis. His ultrasound did not apparently show dilated biliary system but I do not have these results. I will obtain some additional serologies. I would encourage dietary measures and bulk fiber supplementation. Based upon the patient's family history, I would recommend repeat screening/surveillance colonoscopy again in 5 years.
[2019-08-03 11:36] LABS: Blood Urea Nitrogen 14 mg/dl (9-20); Creatinine Clearance Estimated 125 mL/min (50-200); Estimated Glomerular Filt Rate 100 ml/min (>60); GFR (African American) 121 ML/MIN (>60)
[2019-08-04 18:33] LABS: Actin (Smooth Muscle) Antibody 4 Units (0-19); Mitochondrial (M2) Antibody 140.6 Units (0.0-20.0)
[2019-08-06 13:10] LABS: Anti-Centromere B Antibodies <0.2 AI (0.0-0.9); Anti-Jo-1 <0.2 AI (0.0-0.9); Anti-Smith Antibody <0.2 AI (0.0-0.9); Antichromatin Antibodies <0.2 AI (0.0-0.9); Antiscleroderma-70 Antibodies <0.2 AI (0.0-0.9); RNP Antibodies <0.2 AI (0.0-0.9); Sjogren's Anti-SS-A <0.2 AI (0.0-0.9); Sjogren's Anti-SS-B <0.2 AI (0.0-0.9)
[2019-08-06 13:42] LABS: Anti-DNA (DS) Ab Qn <1 IU/mL (0-9)
[2019-08-08 02:08] LABS: ALT (SGPT) P5P 77 IU/L (0-55); Alpha 2-Macroglobulins, Qn 427 mg/dL (110-276); Apolipoprotein A-1 142 mg/dL (101-178); Bilirubin, Total 0.3 mg/dL (0.0-1.2); Fibrosis Score 0.77 (0.00-0.21); GGT 699 IU/L (0-65); Haptoglobin 184 mg/dL (29-370); Necroinflammat Activity Grade A3-Severe activity (.); Necroinflammat Activity Score 0.63 (0.00-0.17)
[2019-08-08 18:08] LABS: Angiotensin Converting Enzyme 33 U/L (14-82)
== END 2019-08-03 11:45 | disposition home or self-care (01) ==
LOC: OUTP 08:48
PROVIDERS: PCP Nurse Practitioner Family; Visit Provider Internal Medicine Gastroenterology
PROC: 0DJ08ZZ Inspection of Upper Intestinal Tract, Via Natural or Artificial Opening Endoscopic (ICD-10-PCS; CPT 43235; principal; 2019-08-03 10:00)
DX: K57.30 Diverticulosis of large intestine without perforation or abscess without bleeding (principal); K64.0 First degree hemorrhoids; K21.9 Gastro-esophageal reflux disease without esophagitis; K31.9 Disease of stomach and duodenum, unspecified; K29.50 Unspecified chronic gastritis without bleeding; Z80.0 Family history of malignant neoplasm of digestive organs; Z72.0 Tobacco use; I10 Essential (primary) hypertension; E11.9 Type 2 diabetes mellitus without complications; Z86.73 Personal history of transient ischemic attack (TIA), and cerebral infarction without residual deficits; Z79.899 Other long term (current) drug therapy; Z79.82 Long term (current) use of aspirin
CPT/HCPCS: 45378; 43239; 36415; 81596; 82164; 82565; 82962; 84520; 86225; 86235; 86255; 86256

== ENCOUNTER → 2019-08-08 08:29 | Outpatient (CLI) | payer BC, SELFPAY ==
--- NOTE | 2019-08-08 08:36 | MR_ITS ---
PROCEDURE: MR LUMBAR SPINE WO/W CON CLINICAL INDICATION: INTERVERTEBRAL DISC DISORDERS WITH RADICULOPATHY Prior back surgery, left hip and leg pain TECHNIQUE: Standard multiplanar multiecho sequences are performed without contrast. 3-D MIP and myelographic images are also rendered and reviewed FINDINGS: There is normal alignment. The spinal cord ends at the T12-L1 level. There is multilevel mild degenerative disc disease. Small ventral osteophytes are present at T12-L1 and L1-L2 with mild degenerative disc disease at T12-L1. There is mild facet ligamentum hypertrophy at L1-L2 L2-L3: Facet ligamentum hypertrophy with mild bilateral lateral recess and foraminal narrowing. L3-L4: Facet ligamentum hypertrophy with mild bilateral lateral recess and foraminal narrowing L4-5: Postsurgical changes from prior right laminotomy with facet and ligamentum hypertrophy. Irregularity of the endplates noted at this level with lobular area of isointense T1 and mixed T2 signal in the right paracentral region. Previously this was mostly hypointense on T2 but now show some central increased T2 signal and may be slightly decreased in size causing moderate compression upon the anterior and right aspect of the thecal sac and the right L5 nerve root with severe right lateral recess narrowing. Moderate to severe right-sided foraminal narrowing also noted. This area of isointense T1 signal does demonstrate contrast enhancement and is compatible with epidural fibrosis from. Within the central aspect of this area of enhancement there is a 5 mm area of isointensity and could be due to small disc fragment. L5-S1: Unremarkable. IMPRESSION: 1. Mild multilevel lumbar spondylosis with degenerative disc disease, bulging disc, facet ligamentum hypertrophy. Please see above for detailed description at each level. These findings are not significantly changed. 2. Abnormal anterior extradural defect on the right at L4-5 as described above which does show contrast enhancement compatible with an area of epidural fibrosis with possible small residual disc fragment. This is slightly decreased in size compared to the previous exam with some increasing in T2 signal centrally. Dictated by: Roger Varela MD 08/09/2019 12:45 Electronically signed by Roger Varela MD in [place] 08/09/2019 12:46
== END ==
PROVIDERS: PCP Nurse Practitioner Family; Visit Provider Nurse Practitioner Family
DX: M51.15 Intervertebral disc disorders with radiculopathy, thoracolumbar region (principal)
CPT/HCPCS: 72158; 76376; A9576

== ENCOUNTER → 2019-08-21 09:05 | Outpatient (CLI) | payer BC, SELFPAY ==
--- NOTE | 2019-08-21 09:05 | CT_ITS ---
Procedure: CT ANGIO ABDOMEN CLINICAL HISTORY: feeling of fullness and weight loss 30 lb weight loss, left lower quadrant pain discomfort COMPARISON: No exams were available for comparison TECHNIQUE: IV Contrast: 100ml Optiray 350 Axial images obtained with sagittal and coronal reformats. All CT scans at the facility use one or more dose reduction, viz: automated exposure control, ma/kV adjustment per patient size (including targeted exams where dose is matched to indication, i.e. head), or iterative reconstruction technique. FINDINGS: No evidence abdominal aortic aneurysm or dissection. Mild narrowing of the ostium the celiac artery and proximal aspect of the SMA less than 30 percent. No evidence aneurysm of the celiac or SMA. The DEANN is patent. There is dense calcific atherosclerotic plaque at the distal aspect of the abdominal aorta and the proximal common iliacs with approximately 40 percent stenosis of the ostium the right common iliac and 50 percent stenosis of the proximal left common iliac. Mild calcific plaque is present involving the proximal aspect of the superior right renal artery with less than 30 percent stenosis. There are 2 right renal arteries with the inferior renal artery have an unremarkable appearance. No evidence of the left renal artery stenosis. Nonvascular findings: 7 mm noncalcified nodule left lower lobe. Mildly distended gallbladder. Borderline splenomegaly at 13 cm. Small hiatal hernia. Degenerative changes of the spine IMPRESSION: 1. Atheromatous changes of the aorta and its branches as detailed above with no significant stenotic lesions evident. No aneurysms. 2. 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 7 mm noncalcified left lower lobe pulmonary nodule. Recommend six-month follow-up Dictated by: Roger Varela MD 08/22/2019 11:39 Electronically signed by Roger Varela MD in [place] 08/22/2019 11:39
[2019-08-21 10:13] LABS: Blood Urea Nitrogen 13 mg/dl (9-20); Estimated Glomerular Filt Rate 117 ml/min (>60); GFR (African American) 142 ML/MIN (>60)
== END ==
PROVIDERS: PCP Nurse Practitioner Family; Visit Provider Nurse Practitioner Family
DX: R63.4 Abnormal weight loss (principal); R06.00 Dyspnea, unspecified; R68.81 Early satiety; E78.5 Hyperlipidemia, unspecified; I25.10 Atherosclerotic heart disease of native coronary artery without angina pectoris; E11.69 Type 2 diabetes mellitus with other specified complication; Z79.84 Long term (current) use of oral hypoglycemic drugs; Z72.0 Tobacco use
CPT/HCPCS: 36415; 74175; 82565; 84520; Q9967

== ENCOUNTER → 2019-09-13 10:24 | Outpatient (CLI) | payer SELFPAY ==
[2019-09-13 12:02] LABS: Coronavirus 19 IgM Antibody Negative (Negative)
[2019-09-13 12:03] LABS: Coronavirus 19 IgG Antibody Positive (Negative)
== END ==
PROVIDERS: Visit Provider Internal Medicine Gastroenterology
DX: Z03.818 Encounter for observation for suspected exposure to other biological agents ruled out (principal)
CPT/HCPCS: 36415; 86328

== ENCOUNTER 2019-09-14 06:25 | Day surgery (SDC) | payer BC, SELFPAY ==
[2019-09-14] VITALS (10 sets, daily range): BP systolic 100–141; BP diastolic 54–75; PULSE 58–87; RESP 16–18; TEMP 36.4–36.5; O2SAT 94–97; BMI 26.8
[2019-09-14 07:13] LABS: POC Glucose,Bedside 195 (70-110)
--- NOTE | 2019-09-14 07:32 | P.PN_ITS ---
[facility] Anesthesia Checklist - Patient Identification Patient Identification: Arm Band - Structural Data Admitted From: Home Planned Operative Procedure/s: liver biopsy Consent for Planned Operative Procedure(s) Verified: Yes Verified Documents: Surgical Consent, History and Physical - NPO Status Verified Time NPO: 00:00 - Additional verifications Anesthesia Reactions: No - Airway Assessment C-Spine Mobility Assessed: Yes (mp2) TMJ Mobility Assessed: Yes Dentition: Good Dentition - Neurological Assessment Level of Consciousness: Awake, Alert - Anesthesia Plan Anesthesia Risk discussed: Yes Anesthesia Plan: Verified ASA Class: III Anesthesia Type: [facility] History I have reviewed the patient's past medical history: Yes Medical History: Reports:: Coronary Artery Disease, Cerebrovascular Accident, Diabetes Mellitus Type 2, Heart Murmur, Hyperlipidemia, Hypertension Denies:: Atrial Fibrillation, Cancer, Cardiomyopathy, Congestive Heart Failure, Diabetes Mellitus Type 1, Internal Pacemaker, MRSA, Palpitations, Seizu res *Have you ever received a pneumonia vaccine?: Yes *Have you received a flu vaccine this season?: No Other Medical History: Reports: Liver Disease. Denies: Hypothyroidism, Thyroid Disease Anesthesia experience/problems:: nac Laterality Cases: Right: Other Other Surgeries: Yes: Cardiac Catheterization, Colonoscopy, Colon Resection (Due to diverticulitis. 11 inches of colon he states), Other (Back surgery for degenerative disc disease lumbosacral. Jaw surgery 2017). No: Pacemaker Amputation: No Fractures: No - *Social History Last grade of school completed: 7th or 8th Smoking Status: Current every day smoker Tobacco Type: cigarettes # Packs/Day (cigarettes): 1 #Yrs smoked (if former smoker): 30 Alcohol Intake: former Alcohol Intake Frequency:: a few times a week Substance Use Type: marijuana *Occupational Status:: employed Housing: house Household Members: spouse *Travel in the last 8 weeks: None Family Hx:: Cancer, Coronary Artery Disease, Diabetes, Heart Attack, Hyperlipidemia, Hypertension, Substance abuse
--- NOTE | 2019-09-14 08:18 | HMH.PROC ---
[facility] Procedure Note Procedure Note:: Procedure note: Percutaneous liver biopsy Health Data Analyst: Hadley aburto MD Referring physician: DAX Devries Date of procedure: September 14, 2019 Equipment: 16-gauge Jamshidi needle Sedation: MAC sedation Indication: Mr. Mcgill is a 53-year-old gentleman with abnormal weight loss. A CAT scan on July 04, 2019 showed evidence of cirrhosis. Subsequent lab work also confirmed increased fibrosis score (0.77) with an elevated antimitochondrial antibody (140.6). The patient's SOLEDAD and smooth muscle antibody were normal. The patient has had an elevated alkaline phosphatase. He had prior panendoscopy on August 03, 2019. The patient's ultrasound was normal. Procedure: Prior to the procedure a history and physical exam was performed. The patient's medications and allergies were reviewed. The risk benefits and alternatives of the sedation and procedure were discussed with the patient. All questions were answered and informed consent was obtained. The patient was brought to the procedure room and patient identification and proposed procedure were verified by the patient, physician and the nurse. The patient was placed in the supine position. The patient's blood pressure, pulse and oxygen saturations were monitored continuously. The liver biopsy was performed without difficulty. The patient tolerated the procedure well. Procedure detail: After informed consent, the patient was prepped and draped in sterile fashion. An area in the 10th intercostal space in the midaxillary line was anesthetized with 1% lidocaine into the deeper tissues. A small incision was made with a scalpel blade so that a 15-gauge Jamshidi needle could be introduced. After 1 pass a single 1.5 cm specimen was obtained. The patient tolerated the procedure and was taken to postoperative recovery subsequently. He was placed in the right lateral decubitus position and the incision was covered with a Band-Aid. Impression: 1. Elevated liver chemistries/alkaline phosphatase?rule out primary biliary cirrhosis and assessment of inflammatory grade and fibrotic stage Plan: Follow-up biopsy results
== END 2019-09-14 09:43 | disposition home or self-care (01) ==
LOC: OUTP 06:26
PROVIDERS: PCP Nurse Practitioner Family; Visit Provider Internal Medicine Gastroenterology
PROC: (CPT 47000; principal; 2019-09-14 07:30)
DX: R63.4 Abnormal weight loss (principal); R94.5 Abnormal results of liver function studies; Z68.26 Body mass index [BMI] 26.0-26.9, adult; I25.10 Atherosclerotic heart disease of native coronary artery without angina pectoris; E11.9 Type 2 diabetes mellitus without complications; E78.5 Hyperlipidemia, unspecified; I10 Essential (primary) hypertension; E03.9 Hypothyroidism, unspecified; Z90.49 Acquired absence of other specified parts of digestive tract; Z72.0 Tobacco use; F12.90 Cannabis use, unspecified, uncomplicated; Z82.49 Family history of ischemic heart disease and other diseases of the circulatory system
CPT/HCPCS: 47000; 82962; J2704

== ENCOUNTER 2019-09-24 14:00 | Outpatient (RCR) | payer BC, MEDICAID, SELFPAY | END 2019-10-22 17:00 | disposition home or self-care (01) | LOC: PT.CARL 14:00 | PROVIDERS: PCP Nurse Practitioner Family; Visit Provider Neurological Surgery | DX: M54.5 Low back pain (principal) | CPT/HCPCS: 97010; 97014; 97110; 97140; 97163; G0283 ==

== ENCOUNTER → 2019-10-15 09:59 | Outpatient (POV) | payer BC, MEDICAID, SELFPAY | PROVIDERS: Visit Provider Nurse Practitioner Family | DX: Z00.00 Encounter for general adult medical examination without abnormal findings (principal) ==

== ENCOUNTER → 2019-11-16 10:17 | Outpatient (CLI) | payer MEDICAID, SELFPAY ==
[2019-11-16 10:48] LABS: Basophils # 0.1 K/mm3 (0-0.2); Basophils % 1.1 % (0.1-2.0); Eosinophils # 0.5 K/mm3 (0.0-0.4); Eosinophils % 6.5 % (0.1-12.0); Hematocrit 47.5 % (42.0-52.0); Hemoglobin 16.4 g/dL (14.1-18.0); Lymphocytes # 2.5 K/mm3 (0.7-4.5); Lymphocytes % 33.7 % (10-50); Mean Corpuscular HGB Conc 34.5 g/dL (31.8-35.4); Mean Corpuscular Hemoglobin 32.5 pg (27.0-31.2); Mean Corpuscular Volume 94.3 fl (80-94); Mean Platelet Volume 8.1 fl (7.4-10.4); Monocytes # 0.3 K/mm3 (0.1-1.0); Monocytes % 4.2 % (1.7-9.3); Neutrophils % 54.5 % (37.0-80.0); Platelet Count 163 K/mm3 (142-424); Red Blood Count 5.04 M/mm3 (4.60-6.20); Red Cell Distribution Width 12.5 % (11.5-17.5); White Blood Count 7.3 K/mm3 (4.8-10.8)
[2019-11-16 10:54] LABS: Ammonia < 9 umol/L (9-30)
[2019-11-16 11:04] LABS: INR 1.03 (0.9-1.1); Prothrombin Time 11.4 seconds (9.4-11.8)
[2019-11-16 12:13] LABS: Chloride 95 mmol/L (98-107); Potassium 4.8 mmoL/L (3.5-5.1); Sodium 132 mmol/L (136-145)
[2019-11-16 12:16] LABS: Alanine Aminotransferase 40 U/L (12-78); Albumin/Globulin Ratio 1.1 (1.1-1.8); Alkaline Phosphatase 204 U/L (38-126); Anion Gap 15.8 mEq/L (5-15); Aspartate Amino Transferase 38 U/L (17-59); Bilirubin,Total 0.9 mg/dl (0.2-1.3); Blood Urea Nitrogen 13 mg/dl (9-20); Calcium 9.7 mg/dl (8.4-10.2); Carbon Dioxide 26 mmol/L (22.0-30.0); Estimated Glomerular Filt Rate 117 ml/min (>60); GFR (African American) 142 ML/MIN (>60); Globulin 3.7 g/dL (1.3-3.2); Glucose 381 mg/dl (74-100); Iron 135 ug/dL (49-181); Total Protein,Serum 7.7 g/dl (6.3-8.2)
[2019-11-16 12:26] LABS: Total Iron Binding Capacity 391 ug/dL (261-462)
[2019-11-16 12:53] LABS: Ferritin 322 ng/ml (17.9-464)
[2019-11-17 18:18] LABS: AFP, Tumor Marker 2.9 ng/mL (0.0-8.3)
== END ==
PROVIDERS: Visit Provider Nurse Practitioner Family
DX: R63.4 Abnormal weight loss (principal); F10.10 Alcohol abuse, uncomplicated; K74.60 Unspecified cirrhosis of liver; K74.3 Primary biliary cirrhosis; K22.70 Barrett's esophagus without dysplasia
CPT/HCPCS: 36415; 80053; 82105; 82140; 82728; 83540; 83550; 85025; 85610

== ENCOUNTER → 2019-11-23 08:50 | Outpatient (CLI) | payer MEDICAID, SELFPAY ==
[2019-11-23 09:37] LABS: Glucose,Random 420 mg/dL (74-100)
== END ==
PROVIDERS: Visit Provider Nurse Practitioner Family
DX: R73.9 Hyperglycemia, unspecified (principal)
CPT/HCPCS: 36415; 82947

== ENCOUNTER → 2020-03-26 13:01 | Outpatient (CLI) | payer OTHER, SELFPAY ==
--- NOTE | 2020-03-26 13:03 | US_ITS ---
APPROVED REPORT Exam Type: Ankle to Brachial Index Web Page Designer: Ayala Boyd RCS, RVS Indications Claudication: Bilaterally Rest Pain: Right Cold Sensitivity PAD Current Smoker History of Smoking Risk Factors Hypertension Hyperlipidemia TIA/CVA History Diabetes Family History: CAD, Current Smoker Pressures/Indices Right Indices Left Indices Brachial 133.00 mmHg Brachial 122.00 mmHg Low Thigh 162.00 mmHg 1.22 Low Thigh 115.00 mmHg 0.86 Calf 138.00 mmHg 1.04 Calf 90.00 mmHg 0.68 Ankle(PT) 165.00 mmHg 1.24 Ankle(PT) 81.00 mmHg 0.61 Ankle(DP) 167.00 mmHg 1.26 Ankle(DP) 88.00 mmHg 0.66 Digit 109.00 mmHg 0.82 Digit 94.00 mmHg 0.71 Findings RT YESENIA=1.26 LT YESENIA=0.66 RT TP1=0.82 LT YESENIA=0.71 Diminished pulses in Left DPA Conclusion RT YESENIA=1.26 LT YESENIA=0.66 RT TP1=0.82 LT YESENIA=0.71 Diminished pulses in Left DPA Moderate arterial disease on the left Electronically signed by : Roger Varela MD 03/26/2020 16:06:07
== END ==
PROVIDERS: PCP Nurse Practitioner Family; Visit Provider Physician Assistant
DX: I70.213 Atherosclerosis of native arteries of extremities with intermittent claudication, bilateral legs (principal); I73.9 Peripheral vascular disease, unspecified
CPT/HCPCS: 93923

== ENCOUNTER → 2020-04-05 10:50 | Outpatient (CLI) | payer OTHER, SELFPAY ==
[2020-04-05 11:32] LABS: Basophils # 0.1 K/mm3 (0-0.2); Basophils % 0.9 % (0.1-2.0); Eosinophils # 0.5 K/mm3 (0.0-0.4); Eosinophils % 6.5 % (0.1-12.0); Hemoglobin 16.6 g/dL (14.1-18.0); Mean Corpuscular HGB Conc 33.1 g/dL (31.8-35.4); Mean Corpuscular Volume 96.7 fl (80-94); Mean Platelet Volume 7.6 fl (7.4-10.4); Monocytes # 0.4 K/mm3 (0.1-1.0); Monocytes % 5.2 % (1.7-9.3); Neutrophils # 4.8 K/mm3 (1.8-7.8); Neutrophils % 61.5 % (37.0-80.0); Platelet Count 177 K/mm3 (142-424); Red Blood Count 5.17 M/mm3 (4.60-6.20); Red Cell Distribution Width 13.9 % (11.5-17.5); White Blood Count 7.8 K/mm3 (4.8-10.8)
[2020-04-05 11:38] LABS: Hemoglobin A1C 7.1 % (4.0-6.0)
[2020-04-05 12:04] LABS: Alanine Aminotransferase 35 U/L (12-78); Albumin Level 4.9 g/dl (3.5-5.0); Albumin/Globulin Ratio 1.2 (1.1-1.8); Alkaline Phosphatase 180 U/L (38-126); Anion Gap 15.3 mEq/L (5-15); Aspartate Amino Transferase 35 U/L (17-59); Bilirubin,Total 0.8 mg/dl (0.2-1.3); Blood Urea Nitrogen 13 mg/dl (9-20); Calcium 10.1 mg/dl (8.4-10.2); Carbon Dioxide 29 mmol/L (22.0-30.0); Chloride 97 mmol/L (98-107); Estimated Glomerular Filt Rate 117 ml/min (>60); GFR (African American) 141 ML/MIN (>60); Globulin 4.2 g/dL (1.3-3.2); Glucose 332 mg/dl (74-100); Potassium 4.3 mmoL/L (3.5-5.1); Sodium 137 mmol/L (136-145); Total Protein,Serum 9.1 g/dl (6.3-8.2)
[2020-04-05 12:36] LABS: Thyroid Stimulating Hormone 1.47 uIU/mL (0.465-4.68)
[2020-04-05 13:11] LABS: Vitamin B12 552 pg/mL (239-931)
[2020-04-05 13:12] LABS: Folate 6.76 ng/mL
== END ==
PROVIDERS: Visit Provider Specialist
DX: R51.9 Headache, unspecified (principal); E11.65 Type 2 diabetes mellitus with hyperglycemia; F10.11 Alcohol abuse, in remission; R53.83 Other fatigue; Z72.0 Tobacco use; Z86.73 Personal history of transient ischemic attack (TIA), and cerebral infarction without residual deficits; Z79.84 Long term (current) use of oral hypoglycemic drugs
CPT/HCPCS: 36415; 80053; 82607; 82746; 83036; 84443; 85025

== ENCOUNTER 2020-04-15 08:54 | Day surgery (SDC) | payer OTHER, SELFPAY ==
[2020-04-15] VITALS (12 sets, daily range): BP systolic 110–140; BP diastolic 66–83; PULSE 62–93; RESP 14–20; O2SAT 90–96; BMI 27.9
--- NOTE | 2020-04-15 07:06 | IR_ITS ---
APPROVED REPORT PROCEDURES Right femoral arterial access Left femoral arterial access Catheter placed in the abdominal aorta Abdominal aortography Bilateral iliofemoral runoff Bare-metal stent deployment to the left common iliac artery INDICATION Left common iliac artery stenosis, YESENIA 0.66 left leg, Peripheral artery disease, Gratiot claudication class III, Informed consent was obtained prior to the procedure. TECHNIQUE 1% lidocaine used anesthetize right groin the right femoral artery was accessed via the Salinger technique and a 5 Honduran sheath was placed in the right femoral artery. The pigtail catheter was advanced to the abdominal aorta and abdominal aortography was performed. Following this 1% lidocaine was used to anesthetize the left groin and the left femoral artery was accessed via the Salinger technique with a 7 Honduran sheath placed in the left femoral artery. Retrograde wire could not pass through the lumen therefore a rim catheter was inserted into the right groin into the distal abdominal aorta and an advantage wire was then passed through the stenosis in an antegrade manner. Following this the rim catheter was advanced through the stenosis in the left common iliac artery. The rim catheter was then removed following angiography and the left femoral artery to demonstrate intraluminal placement of the catheter and a long advantage wire was then passed from the left groin through the stenosis in the left common iliac artery following removal of the rim catheter. With retrograde wire access in the left common iliac artery stenosis therapeutic heparin was administered and a 9 mm x 37 mm bare-metal stent was deployed at 8 emma. The balloon ruptured prior to full deployment of the stent at 8 emma. The ruptured balloon was removed and a 9 mm x 40 mm balloon was then placed inside the stent and deployed at 1012 and then 14 emma. The balloon was advanced to where half was in the abdominal aorta and half was in the proximal portion and then deployed at 18 emma. This still did not completely reduce the proximal portion of the stent therefore 9 mm x 20 mm balloon was deployed at 18 emma in the proximal portion which further incompletely deployed the stent. Following this the pigtail catheter was then used to perform bilateral iliofemoral runoff. At the end of the procedure both groins were reprepped the gloves were changed the right femoral sheath was removed with good hemostasis being achieved with Perclose device. The left sheath was then removed and good hemostasis was achieved using Angio-Seal device. Patient was transferred to the postop holding her stable addition ANGIOGRAPHIC RESULTS The distal abdominal aorta is patent with mild calcification The right common iliac artery has mild 10% stenosis. The right external and internal iliac artery have mild atheromatous plaque. The right common femoral artery has eccentric 20 to 30% calcified stenosis. The left common iliac artery has a proximal subtotal occlusion of greater than 90%. The left external iliac artery is atheromatous with mild plaque. Left common femoral artery has mild 20% plaque while the left internal iliac artery is patent and normal The right profunda femoris artery is normal the right superficial femoral artery is widely patent with mild atheromatous plaque which extends into the widely patent right popliteal artery. Below the knee there is three-vessel runoff at least in the proximal vessels however the distal vasculature was not fully appreciated due to contrast washout The left profunda femoris artery is normal in the left superficial femoral artery is widely patent with mild atheromatous plaque which extends into a widely patent l
[2020-04-15 10:17] LABS: Coronavirus 19 IgG Antibody Positive (Negative); Coronavirus 19 IgM Antibody Negative (Negative)
[2020-04-15 13:38] LABS: CATHL Activated Clotting Time 311 SEC (74-125)
--- NOTE | 2020-04-15 15:17 | HMH.PHACLD ---
Alex Mcgill has received discharge medication counseling on the following medications: PLAVIX. PATIENT ALREADY TAKES LIPITOR AND ASPIRIN. PERIPHERAL STENT, BETA WILL AND ACEI/ARB NOT INDICATED. PATIENT IS TO HOLD METFORMIN FOR NEXT TWO DAYS. PATIENT VERBALIZED UNDERSTANDING AND HAS NO QUESTIONS AT THIS TIME. -REJI DUDLEY, PHARMD
== END 2020-04-15 14:50 | disposition home or self-care (01) ==
LOC: CATHLAB 08:55
PROVIDERS: PCP Nurse Practitioner Family; Visit Provider Internal Medicine
DX: I25.10 Atherosclerotic heart disease of native coronary artery without angina pectoris (principal); I77.1 Stricture of artery; I70.212 Atherosclerosis of native arteries of extremities with intermittent claudication, left leg; E78.5 Hyperlipidemia, unspecified; I10 Essential (primary) hypertension; Z72.0 Tobacco use; E11.42 Type 2 diabetes mellitus with diabetic polyneuropathy; Z79.84 Long term (current) use of oral hypoglycemic drugs; K70.30 Alcoholic cirrhosis of liver without ascites; Z79.899 Other long term (current) drug therapy; Z79.02 Long term (current) use of antithrombotics/antiplatelets; F10.11 Alcohol abuse, in remission
CPT/HCPCS: 36245; 37221; 75710; 85347; 86328; 99152; 99153; C1725; C1760; C1769; C1876; C1894; J1644; Q9966

== ENCOUNTER → 2020-04-19 09:49 | Outpatient (CLI) | payer OTHER, SELFPAY ==
--- NOTE | 2020-04-19 10:02 | MR_ITS ---
PROCEDURE: MR HEAD/BRAIN WO CON CLINICAL INDICATION: eval for LEMON GROWER abnormality Memory abnormalities, COMPARISON: CT CT HEAD/BRAIN WO CON from 07/22/2019 TECHNIQUE: Routine multiplanar multi echo sequences are performed without gadolinium enhancement. FINDINGS: No midline shift, mass effect, intracranial hemorrhage, or hydrocephalus is evident. No evidence of acute infarction. The cerebellopontine angles are unremarkable. Encephalomalacia changes are present in the right cerebellar hemisphere with focal atrophic changes of the cerebellum inferiorly. The pituitary, optic chiasm, corpus callosum, and craniocervical junction have an unremarkable appearance. No mastoid effusion. Small retention cyst is present in the floor the left maxillary sinus and there is mild mucosal thickening of the ethmoid and frontal sinuses. IMPRESSION: 1. No acute intracranial findings. 2. Encephalomalacia changes of the right cerebellar hemisphere Dictated by: Roger Varela MD 04/21/2020 07:16 Roger Varela MD in [place] 04/21/2020 07:16
== END ==
PROVIDERS: PCP Nurse Practitioner Family; Visit Provider Specialist
DX: R51.9 Headache, unspecified (principal); E11.65 Type 2 diabetes mellitus with hyperglycemia; F10.11 Alcohol abuse, in remission; R53.83 Other fatigue; Z72.0 Tobacco use; Z86.73 Personal history of transient ischemic attack (TIA), and cerebral infarction without residual deficits; Z79.84 Long term (current) use of oral hypoglycemic drugs
CPT/HCPCS: 70551; 94762

== ENCOUNTER → 2020-05-05 08:00 | Outpatient (CLI) | payer OTHER, SELFPAY ==
--- NOTE | 2020-05-05 08:04 | US_ITS ---
PROCEDURE: US ABDOMEN LIMITED CLINICAL INDICATION: WEIGHT LOSS,ALCOHOL ABUSE,CIRRHOSIS,BARRETTS ESOPHAGUS COMPARISON: US US ABDOMEN LIMITED from 07/02/2019 FINDINGS: PANCREAS: Pancreatic tail is not well delineated. The remaining pancreas has an unremarkable appearance. LIVER: Cirrhotic appearance with irregularity of hepatic surface. No biliary dilatation or focal lesion demonstrated. Portal vein is upper limits of normal at 14 mm RIGHT KIDNEY: Unremarkable. Normal size and echogenicity. No hydronephrosis GALLBLADDER: No gallstones, gallbladder wall thickening, pericholecystic fluid, or biliary dilatation. IMPRESSION: Cirrhotic appearing liver not significantly changed. Dictated by: Roger Varela MD 05/05/2020 11:25 Roger Varela MD in [facility] 05/05/2020 11:25
== END ==
PROVIDERS: PCP Nurse Practitioner Family; Visit Provider Nurse Practitioner Family
DX: K74.60 Unspecified cirrhosis of liver (principal); R63.4 Abnormal weight loss; F10.10 Alcohol abuse, uncomplicated; K74.3 Primary biliary cirrhosis; K22.70 Barrett's esophagus without dysplasia
CPT/HCPCS: 76705

== ENCOUNTER → 2020-05-12 08:51 | Outpatient (POV) | payer OTHER, SELFPAY ==
[2020-05-12 10:56] LABS: Basophils # 0.1 K/mm3 (0-0.2); Basophils % 1.7 % (0.1-2.0); Eosinophils # 0.4 K/mm3 (0.0-0.4); Eosinophils % 5.6 % (0.1-12.0); Hematocrit 49.5 % (42.0-52.0); Lymphocytes % 28.6 % (10-50); Mean Corpuscular HGB Conc 34.4 g/dL (31.8-35.4); Mean Corpuscular Hemoglobin 32.3 pg (27.0-31.2); Mean Corpuscular Volume 93.8 fl (80-94); Mean Platelet Volume 7.3 fl (7.4-10.4); Monocytes # 0.4 K/mm3 (0.1-1.0); Monocytes % 4.9 % (1.7-9.3); Neutrophils # 4.2 K/mm3 (1.8-7.8); Neutrophils % 59.3 % (37.0-80.0); Platelet Count 193 K/mm3 (142-424); Red Blood Count 5.28 M/mm3 (4.60-6.20); Red Cell Distribution Width 13.3 % (11.5-17.5); White Blood Count 7.1 K/mm3 (4.8-10.8)
[2020-05-12 11:10] LABS: INR 0.95 (0.9-1.1); Prothrombin Time 11.3 seconds (10.1-12.5)
[2020-05-12 11:12] LABS: Ammonia 13 umol/L (9-30)
[2020-05-12 11:37] LABS: Chloride 99 mmol/L (98-107)
[2020-05-12 11:38] LABS: Potassium 4.9 mmoL/L (3.5-5.1); Sodium 138 mmol/L (136-145)
[2020-05-12 11:40] LABS: Blood Urea Nitrogen 11 mg/dl (9-20); Estimated Glomerular Filt Rate 117 ml/min (>60); GFR (African American) 141 ML/MIN (>60)
[2020-05-12 11:41] LABS: Alanine Aminotransferase 29 U/L (12-78); Albumin/Globulin Ratio 1.3 (1.1-1.8); Alkaline Phosphatase 210 U/L (38-126); Anion Gap 16.9 mEq/L (5-15); Aspartate Amino Transferase 31 U/L (17-59); Bilirubin,Total 0.8 mg/dl (0.2-1.3); Calcium 10.6 mg/dl (8.4-10.2); Carbon Dioxide 27 mmol/L (22.0-30.0); Glucose 201 mg/dl (74-100); Iron 130 ug/dL (49-181)
[2020-05-12 11:51] LABS: Total Iron Binding Capacity 447 ug/dL (261-462)
[2020-05-12 12:16] LABS: Ferritin 112 ng/ml (17.9-464)
[2020-05-13 13:39] LABS: AFP, Tumor Marker 2.3 ng/mL (0.0-8.3)
== END ==
PROVIDERS: PCP Nurse Practitioner Family; Visit Provider Nurse Practitioner Family
DX: K22.70 Barrett's esophagus without dysplasia (principal); F10.10 Alcohol abuse, uncomplicated; K74.3 Primary biliary cirrhosis; K74.60 Unspecified cirrhosis of liver
CPT/HCPCS: 36415; 80053; 82105; 82140; 82728; 83540; 83550; 85025; 85610

== ENCOUNTER → 2020-07-11 15:12 | Outpatient (CLI) | payer OTHER, SELFPAY ==
--- NOTE | 2020-07-11 15:15 | CT_ITS ---
PROCEDURE INFORMATION: Exam: CT Chest Without Contrast; Diagnostic Exam date and time: 07/11/2020 3:15 PM Age: 54 years old Clinical indication: Screening exam; Other screening; Additional info: Solitary pulmonary nodule TECHNIQUE: Imaging protocol: Diagnostic computed tomography of the chest without contrast. Radiation optimization: All CT scans at this facility use at least one of these dose optimization techniques: automated exposure control; mA and/or kV adjustment per patient size (includes targeted exams where dose is matched to clinical indication); or iterative reconstruction. COMPARISON: [facility] CT CHEST W/O CONTRAST 04/22/2015 1:04 PM FINDINGS: Lungs: Ground-glass pulmonary nodules in the right lower lobe 8 mm and 5.2 mm . Series 3, image 37. Nodule in the right lower lobe 4.7 mm. Series 3, image 39. Subpleural reticulation consistent with chronic lung changes Paraseptal emphysematous changes in the apices Pleural spaces: Unremarkable. No pneumothorax. No pleural effusion. Heart: Coronary artery calcifications may indicate coronary artery disease. Aorta: Unremarkable. No aortic aneurysm. Lymph nodes: Unremarkable. No enlarged lymph nodes. Bones/joints: Unremarkable. No acute fracture. Soft tissues: Unremarkable. IMPRESSION: 1. Ground-glass pulmonary nodules in the right lower lobe 8 mm and 5.2 mm . Series 3, image 37. Recommend CT Chest at 3-6 months. Subsequent management based on the most suspicious nodule(s). (Reference: Shannan) References: Thelmahon H, et al. Guidelines for Management of Incidental Pulmonary Nodules Detected on CT Images: From the Fleischner Society 2017. Radiology. 2017;284(1):228-243. 2. Nodule in the right lower lobe 4.7 mm. Series 3, image 39. For patients at low risk (minimal or absent history of smoking and of other known risk factors), no routine follow-up is indicated. For patients at high risk (history of smoking or of other known risk factors), consider optional CT Chest at 12 months. (Reference: Shannan) References: Thelmahojoelle H, et al. Guidelines for Management of Incidental Pulmonary Nodules Detected on CT Images: From the Fleischner Society 2017. Radiology. 2017;284(1):228-243.
== END ==
PROVIDERS: PCP Nurse Practitioner Family; Visit Provider Nurse Practitioner Family
DX: R91.1 Solitary pulmonary nodule (principal)
CPT/HCPCS: 71250

== ENCOUNTER 2020-10-15 10:08 | Emergency (ER) | payer OTHER, SELFPAY ==
[2020-10-15 10:10] VITALS: BP 138/82; PULSE 88; RESP 18; TEMP 36.7; O2SAT 95; BMI 28.7
--- NOTE | 2020-10-15 10:42 | HMH.EDGENADL ---
ED Disposition Clinical Impression: Left hip pain Left shoulder pain Qualifiers: Chronicity: chronic Qualified Code(s): M25.512 - Pain in left shoulder; G89.29 - Other chronic pain Osteoarthritis Qualifiers: Osteoarthritis location: unspecified site Osteoarthritis type: unspecified Qualified Code(s): M19.90 - Unspecified osteoarthritis, unspecified site Disposition: Home, Self-Care Condition on Discharge: Good Instructions: DI for Hip Pain, DI for Shoulder Pain, DI for Osteoarthritis Additional Instructions: [place] as prescribed for pain. Follow-up with primary care provider, call for appointment. Additional instructions for CONTROLLED SUBSTANCES: You have been prescribed a medication that is a controlled substance. Controlled substances include pain medications known as opiates and sedative nerve medications known as benzodiazepines. Tramadol, fioricet, and gabapentin are also controlled substances. Some common opiates include: Codeine (such as Tylenol #3) Hydrocodone (Vicodin, Lortab, Lorcet, Omaha) Oxycodone (Percocet, Percodan, Oxycodone, Oxy IR) Some common benzodiazepines include: Diazepam (Valium) Lorazepam (Ativan) Alprazolam (Xanax) Clonazepam (Klonopin) Oxazepam (Serax) All of these controlled substances are highly addictive and frequently abused. Misuse can and frequently does lead to addiction as well as overdose and . Medication should be stored in a locked cabinet or other secure storage unit. Do not store the medication in a motor vehicle. Short term supplies, 3 days or less, are prescribed because of the highly addictive nature of the medication. Any of the controlled substance medication NOT taken should be disposed of properly and NOT SAVED. The recommended method of disposing of unused medications is: Place the medicines in a sealable plastic bag. If the medicine is a solid, crush it or add water to dissolve it. Add something undesirable (cat litter, coffee grounds, etc.) Dispose of sealed bag in household trash Do not flush or pour unused medicines down a sink or drain. Controlled substances should not be shared, given away or sold. Because of the addictive nature and frequent abuse, these medications are sometimes stolen. These medications should be kept in a safe place where they cannot be stolen. Do not keep them in your car or purse. Lost or stolen prescriptions for controlled substances WILL NOT BE REFILLED in this emergency department, regardless of whether a police report was filed. Prescriptions: Hydrocod/Acet 5/325 mg [O[place] 5/325mg tablet] 1 tab PO Q6HP PRN #10 tab PRN Reason: Pain Transmission Status: Sent to [facility] Referrals: Annmarie Moran [Primary Care Provider] - - Critical Care Critical Care Time: No Attestation: On 10/15/20, the high probability of a clinically significant, sudden or life threatening deterioration of the following system(s) required my full and direct attention, intervention and personal management. The time I documented below is in addition to time spent performing reported procedures but includes the following listed in this critical care notation. Medical Decision Making - Delbert Inquiry Pt receiving controlled substance: Yes Delbert was queried for this patient: Yes Risks and benefits of using a controlled substance: were discussed with pt by me Vital Signs: 10/15/20 10:10 Temperature 98.1 F Temperature Source Oral Pulse Rate [Right] 88 Respiratory Rate 18 Blood Pressure [Right Arm] 138/82 Blood Pressure Mean [Right Arm] 100 02 Sat by Pulse Oximetry 95 Oxygen Delivery Method Room Air - Radiology Data #1 Image(s): Shoulder, Hip Image Reviewed: Yes I reviewed the patient's radiology image, Yes I have reviewed radiologist's interpretation PROCEDURE INFORMATION: Exam: XR Left Shoulder Exam date and time: 10/15/2020 10:54 AM Age: 54 years old Clinical indication: Pain; Shoulder;
--- NOTE | 2020-10-15 10:54 | XR_ITS ---
PROCEDURE INFORMATION: Exam: XR Left Shoulder Exam date and time: 10/15/2020 10:54 AM Age: 54 years old Clinical indication: Pain; Shoulder; Left TECHNIQUE: Imaging protocol: XR Left shoulder. Views: 2 or more views. COMPARISON: CR HUML HUMERUS-LT 12/02/2015 5:48 PM FINDINGS: Bones/joints: Visualized portions of the clavicle normal. Moderate degenerative changes of the acromioclavicular joint. Glenohumeral joint normal; Scapula normal; Visualized ribs and visualized pulmonary parenchyma normal; Coracoid process normal Soft tissues: Normal. IMPRESSION: Moderate degenerative changes of the acromioclavicular joint.
--- NOTE | 2020-10-15 10:54 | XR_ITS ---
PROCEDURE INFORMATION: Exam: XR Left Hip Exam date and time: 10/15/2020 10:54 AM Age: 54 years old Clinical indication: Hip pain; Left hip TECHNIQUE: Imaging protocol: XR Left hip. Views: 2 or 3 views hip with pelvis when performed. COMPARISON: MR LUMBAR SPINE WO/W CON 08/08/2019 8:41 AM FINDINGS: Bones/joints: osseous structures of the pelvis without an acute process. rami are intact. Sacroiliac joints without separation/diastases/fracture. Iliac bones unremarkable/noncontributory; Degenerative changes within the visualized portions of the caudal aspect of the lumbar spine. Moderate degenerative changes within the hips right greater than left. Soft tissues: See Bones/joints finding. IMPRESSION: 1. No acute process. 2. Moderate degenerative changes within the hips right greater than left.
[2020-10-15 11:43] VITALS: BP 99/59; PULSE 83; RESP 18; O2SAT 95
[2020-10-15 12:19] VITALS: BP 99/59; PULSE 83; RESP 16; TEMP 36.7; O2SAT 95
== END 2020-10-15 12:21 | disposition home or self-care (01) ==
PROVIDERS: Emergency Provider Emergency Medicine; PCP Nurse Practitioner Family
DX: M25.552 Pain in left hip (principal); M79.622 Pain in left upper arm; I25.10 Atherosclerotic heart disease of native coronary artery without angina pectoris; E78.5 Hyperlipidemia, unspecified; I10 Essential (primary) hypertension; F41.8 Other specified anxiety disorders; E11.9 Type 2 diabetes mellitus without complications; Z86.73 Personal history of transient ischemic attack (TIA), and cerebral infarction without residual deficits; Z88.5 Allergy status to narcotic agent; F17.210 Nicotine dependence, cigarettes, uncomplicated; Z79.899 Other long term (current) drug therapy
CPT/HCPCS: 73030; 73502; 99282

== ENCOUNTER → 2020-11-10 09:54 | Outpatient (POV) | payer OTHER, SELFPAY | PROVIDERS: Visit Provider Nurse Practitioner Family | DX: Z00.00 Encounter for general adult medical examination without abnormal findings (principal) ==

== ENCOUNTER 2020-11-18 15:21 | Outpatient (RCR) | payer OTHER, SELFPAY | END 2020-11-18 16:10 | disposition home or self-care (01) | LOC: OT 15:21 | PROVIDERS: Visit Provider Orthopaedic Surgery | DX: G56.03 Carpal tunnel syndrome, bilateral upper limbs (principal) | CPT/HCPCS: 97763 ==

== ENCOUNTER → 2020-11-28 12:35 | Outpatient (CLI) | payer OTHER, SELFPAY ==
[2020-11-28 12:56] LABS: Basophils # 0.1 K/mm3 (0-0.2); Eosinophils # 0.6 K/mm3 (0.0-0.4); Eosinophils % 5.6 % (0.1-12.0); Lymphocytes # 2.6 K/mm3 (0.7-4.5); Lymphocytes % 23.7 % (10-50); Mean Corpuscular HGB Conc 34.1 g/dL (31.8-35.4); Mean Corpuscular Hemoglobin 32.8 pg (27.0-31.2); Mean Platelet Volume 7.2 fl (7.4-10.4); Monocytes # 0.6 K/mm3 (0.1-1.0); Monocytes % 5.2 % (1.7-9.3); Neutrophils % 64.5 % (37.0-80.0); Platelet Count 226 K/mm3 (142-424); Red Blood Count 5.52 M/mm3 (4.60-6.20); Red Cell Distribution Width 13.1 % (11.5-17.5); White Blood Count 10.8 K/mm3 (4.8-10.8)
[2020-11-28 13:03] LABS: Ammonia < 9 umol/L (9-30)
[2020-11-28 13:05] LABS: INR 1.06 (0.9-1.1); Prothrombin Time 11.9 seconds (10.1-12.5)
[2020-11-28 13:34] LABS: Chloride 101 mmol/L (98-107); Potassium 4.5 mmoL/L (3.5-5.1); Sodium 138 mmol/L (136-145)
[2020-11-28 13:37] LABS: Alanine Aminotransferase 38 U/L (12-78); Albumin Level 4.4 g/dl (3.5-5.0); Albumin/Globulin Ratio 1.3 (1.1-1.8); Alkaline Phosphatase 176 U/L (38-126); Anion Gap 17.5 mEq/L (5-15); Aspartate Amino Transferase 40 U/L (17-59); Bilirubin,Total 0.5 mg/dl (0.2-1.3); Blood Urea Nitrogen 17 mg/dl (9-20); Calcium 9.4 mg/dl (8.4-10.2); Carbon Dioxide 24 mmol/L (22.0-30.0); Estimated Glomerular Filt Rate 100 ml/min (>60); GFR (African American) 121 ML/MIN (>60); Globulin 3.4 g/dL (1.3-3.2); Glucose 243 mg/dl (74-100); Iron 113 ug/dL (49-181); Total Protein,Serum 7.8 g/dl (6.3-8.2)
[2020-11-28 13:46] LABS: Total Iron Binding Capacity 407 ug/dL (261-462)
[2020-11-28 13:54] LABS: Hemoglobin 18.1 g/dL (14.1-18.0)
[2020-11-28 14:12] LABS: Ferritin 78.6 ng/ml (17.9-464)
[2020-11-29 10:16] LABS: AFP, Tumor Marker 1.7 ng/mL (0.0-8.3)
== END ==
PROVIDERS: Visit Provider Nurse Practitioner Family
DX: F10.10 Alcohol abuse, uncomplicated (principal); K74.60 Unspecified cirrhosis of liver; K22.70 Barrett's esophagus without dysplasia; K74.3 Primary biliary cirrhosis; R63.4 Abnormal weight loss; Z68.28 Body mass index [BMI] 28.0-28.9, adult
CPT/HCPCS: 36415; 80053; 82105; 82140; 82728; 83540; 83550; 85025; 85610

== ENCOUNTER → 2020-12-05 08:44 | Outpatient (CLI) | payer OTHER, SELFPAY ==
--- NOTE | 2020-12-05 08:47 | US_ITS ---
PROCEDURE: US ABDOMEN LIMITED CLINICAL INDICATION: ALCOHOL ABUSE, CIRRHOSIS, UNSPECIFIED, BARETT'S ESOPHAGUS COMPARISON: CT CT ANGIO ABDOMEN from 08/21/2019 US US ABDOMEN LIMITED from 05/05/[address] CHEST WO CON from 07/11/2020 FINDINGS: PANCREAS: Pancreatic tail is not delineated. The remaining pancreas has unremarkable appearance LIVER: No focal liver lesions demonstrated. Homogeneous echogenicity. No intrahepatic biliary ductal dilatation evident. There is appropriate direction of blood flow within a non dilated portal vein there is minimal cortical irregularity of the liver surface not significantly changed. RIGHT KIDNEY: Unremarkable. Normal size and echogenicity. No hydronephrosis GALLBLADDER: No gallstones, gallbladder wall thickening, pericholecystic fluid, or biliary dilatation. IMPRESSION: Minimal cortical regularity of the liver which could be seen with mild cirrhosis otherwise negative overall not significantly changed Dictated by: Roger Varela MD 12/05/2020 14:18 Roger Varela MD in [place] 12/05/2020 14:18
== END ==
PROVIDERS: PCP Nurse Practitioner Family; Visit Provider Nurse Practitioner Family
DX: K74.60 Unspecified cirrhosis of liver (principal); K74.3 Primary biliary cirrhosis; K22.70 Barrett's esophagus without dysplasia; R63.4 Abnormal weight loss; F10.10 Alcohol abuse, uncomplicated
CPT/HCPCS: 76705

== ENCOUNTER → 2021-02-18 16:54 | Outpatient (CLI) | payer OTHER, SELFPAY ==
--- NOTE | 2021-02-18 16:54 | MR_ITS ---
PROCEDURE INFORMATION: Exam: MR Cervical Spine Without Contrast Exam date and time: 02/18/2021 4:54 PM Age: 55 years old Clinical indication: Patient HX: Neck pain, left shoulder pain, worsening over the last 2-3 months, no injury; Additional info: Evaluate for cervical spondylosis TECHNIQUE: Imaging protocol: Multiplanar magnetic resonance images of the cervical spine without contrast. COMPARISON: None available. FINDINGS: Vertebrae: There is mild reversal of the normal cervical lordosis. There is no fracture. Spinal cord: Normal signal. No cord compression. C2-C3: No significant disc disease. No significant spinal stenosis. C3-C4: There is a diffuse disc osteophyte complex. There is mild facet hypertrophy. There is moderate to severe right and severe left neural foraminal narrowing. C4-C5: There is a diffuse disc osteophyte complex. There is mild facet hypertrophy. There is moderate right and moderate to severe left neural foraminal narrowing. C5-C6: There is a diffuse disc osteophyte complex. There is mild facet hypertrophy. There is severe bilateral neural foraminal narrowing. There is moderate canal stenosis. C6-C7: There is a diffuse disc osteophyte complex. There is mild facet hypertrophy. There is severe bilateral neural foraminal narrowing. There is moderate canal stenosis. C7-T1: No significant disc disease. No significant spinal stenosis. Soft tissues: Unremarkable. Vertebral arteries: Expected flow voids in the vertebral arteries. IMPRESSION: Degenerative disc disease and spondylosis. At C5/6 and C6/7, changes contribute to severe bilateral neural foraminal narrowing and moderate canal stenosis.
== END ==
PROVIDERS: PCP Nurse Practitioner Family; Visit Provider Orthopaedic Surgery
DX: M54.2 Cervicalgia (principal)
CPT/HCPCS: 72141; 76376

== ENCOUNTER 2021-03-03 14:00 | Outpatient (RCR) | payer OTHER, SELFPAY ==
--- NOTE | 2021-02-12 12:06 | HMH.PTOPEV ---
PT Outpatient Evaluation Rehab PT Outpatient Evaluation Start: 02/12/21 10:58 Freq: Status: Active Protocol: Document 02/12/21 10:58 SANDIP (Rec: 02/12/21 12:06 MICHAELSERANABELX [id number]) Electronically Signed By Nitish Ruiz, PT 02/12/21 10:58 Outpatient Therapy Subjective History Subjective History Pt. is a 55 year old male who presents to Outpatient Physical Therapy w/ c/o chronic and activity dependent LUE shldr. P!, stiffness, weakness, and ADL limitations of insidious onset 6-7 months ago. However, pt. reports symptoms got severe about 3 months ago. Pt. reports symptoms worsen w/ reaching, lifting, dressing, and driving. Pt. reports having symptom relief after resting his arm for 3-5 minutes. Pt. also reports having some symptom relief and improved ROM after his injection last week. Pt. reports he is set to have 3 injections in the next 3 months in his L shldr. for current pathology. Pt. RTMD . Recent diagnostic imaging(radiograph) positive for increased inflammation per pt. report. Pt. denies a history of cancer(self), denies pacemaker, denies latex allergy, reports having an allergy to morphine. Current medications include Atorvastatin, Metformin, Lisinopril, Omeprazole, Xarelto, Ursodiol, Aspirin, Paxil, and Vitamin B. PMH includes history of CVA, testicular torsion, Cirrhosis of Liver, BUE Carpal Tunnel, Type II Diabetes, Hypertension , Hyperlipidemia, and S/P Lumbar Laminectomy. Chief Complaint Pain,Stiff,Clicks,Paresthesia, Weakness Symptom Type Ache,Dull,Tingling,Shooting, Other
== END 2021-04-21 15:18 | disposition home or self-care (01) ==
LOC: PT 14:00
PROVIDERS: PCP Nurse Practitioner Family; Visit Provider Orthopaedic Surgery
DX: M75.02 Adhesive capsulitis of left shoulder (principal)
CPT/HCPCS: 97010; 97014; 97110; 97163; G0283

== ENCOUNTER → 2021-04-01 14:45 | Outpatient (CLI) | payer OTHER, SELFPAY ==
--- NOTE | 2021-04-01 14:47 | US_ITS ---
FINAL REPORT CLINICAL HISTORY: PAD, SMOKER, DM, PVD, HTN, CVA, HLD, Stent in left leg COMPARISON: 03/26/2020 FINDINGS: Ankle brachial indices was obtained. The right YESENIA is 1.3, previously 1.3 and is normal. The left YESENIA is 1.1, previously 0.66 which is improved. IMPRESSION: Normal ABIs bilaterally, improved on the left. Reviewed, Interpreted and Dictated by Casey Ho III, MD Transcribed by Waleska Barillas Authenticated by Casey Ho III, MD on 04/01/2021 04:16:[address] [facility]
== END ==
PROVIDERS: PCP Nurse Practitioner Family; Visit Provider Nurse Practitioner Family
DX: I73.9 Peripheral vascular disease, unspecified (principal); I25.10 Atherosclerotic heart disease of native coronary artery without angina pectoris; I10 Essential (primary) hypertension; E78.5 Hyperlipidemia, unspecified; Z72.0 Tobacco use
CPT/HCPCS: 93923

== ENCOUNTER → 2021-07-27 08:20 | Outpatient (CLI) | payer OTHER, SELFPAY ==
--- NOTE | 2021-07-27 08:30 | US_ITS ---
FINAL REPORT CLINICAL HISTORY: CIRRHOSIS FINDINGS: Sonographic images of the right upper quadrant were obtained. The pancreas is partially obscured. The liver has a heterogeneous echotexture. It has a mildly irregular contour which may represent cirrhosis. The portal vein is mildly dilated at 14 mm. The gallbladder appears normal without evidence of gallstones. There is nonspecific gallbladder wall thickening. There is no evidence of biliary ductal dilatation.The common duct measures 2 mm. Limited images of the right kidney are unremarkable. IMPRESSION: Heterogeneous echotexture of the liver with mildly irregular contour which may represent cirrhosis. Mildly dilated portal vein. Nonspecific gallbladder wall thickening. Reviewed, Interpreted and Dictated by Casey Ho III, MD Transcribed by Vicenta Casillas Authenticated and [facility]
== END ==
PROVIDERS: PCP Nurse Practitioner Family; Visit Provider Nurse Practitioner Family
DX: K74.60 Unspecified cirrhosis of liver (principal); K74.3 Primary biliary cirrhosis; R94.5 Abnormal results of liver function studies; R73.9 Hyperglycemia, unspecified; R63.4 Abnormal weight loss; F10.10 Alcohol abuse, uncomplicated
CPT/HCPCS: 76705

== ENCOUNTER → 2021-08-03 11:30 | Outpatient (CLI) | payer OTHER, BC, MEDICAID, SELFPAY ==
[2021-08-03 12:03] LABS: Basophils # 0.1 K/mm3 (0-0.2); Eosinophils # 0.4 K/mm3 (0.0-0.4); Eosinophils % 4.9 % (0.1-12.0); Hematocrit 48.6 % (42.0-52.0); Hemoglobin 17.1 g/dL (14.1-18.0); Lymphocytes # 2.1 K/mm3 (0.7-4.5); Lymphocytes % 24.8 % (10-50); Mean Corpuscular HGB Conc 35.3 g/dL (31.8-35.4); Mean Corpuscular Hemoglobin 31.6 pg (27.0-31.2); Mean Corpuscular Volume 89.7 fl (80-94); Mean Platelet Volume 7.2 fl (7.4-10.4); Monocytes # 0.5 K/mm3 (0.1-1.0); Neutrophils # 5.2 K/mm3 (1.8-7.8); Neutrophils % 63.2 % (37.0-80.0); Platelet Count 198 K/mm3 (142-424); Red Blood Count 5.41 M/mm3 (4.60-6.20); Red Cell Distribution Width 13.9 % (11.5-17.5); White Blood Count 8.3 K/mm3 (4.8-10.8)
[2021-08-03 12:09] LABS: Ammonia < 9 umol/L (9-30)
[2021-08-03 12:29] LABS: Chloride 105 mmol/L (98-107); Sodium 138 mmol/L (136-145)
[2021-08-03 12:30] LABS: Potassium 4.5 mmoL/L (3.5-5.1)
[2021-08-03 12:32] LABS: Alanine Aminotransferase 37 U/L (12-78); Alkaline Phosphatase 185 U/L (38-126); Anion Gap 15.5 mEq/L (5-15); Aspartate Amino Transferase 39 U/L (17-59); Bilirubin,Total 0.6 mg/dl (0.2-1.3); Blood Urea Nitrogen 15 mg/dl (9-20); Carbon Dioxide 22 mmol/L (22.0-30.0); Estimated Glomerular Filt Rate 116 ml/min (>60); GFR (African American) 141 ML/MIN (>60)
[2021-08-03 12:33] LABS: Albumin Level 4.3 g/dl (3.5-5.0); Albumin/Globulin Ratio 1.4 (1.1-1.8); Calcium 9.2 mg/dl (8.4-10.2); Globulin 3.1 g/dL (1.3-3.2); Glucose 188 mg/dl (74-100); Iron 81 ug/dL (49-181); Total Protein,Serum 7.4 g/dl (6.3-8.2)
[2021-08-03 12:42] LABS: Total Iron Binding Capacity 359 ug/dL (261-462)
[2021-08-03 13:08] LABS: Ferritin 41.4 ng/ml (17.9-464)
[2021-08-03 15:03] LABS: INR 0.96 (0.9-1.1); Prothrombin Time 10.9 seconds (10.1-12.5)
[2021-08-04 08:14] LABS: AFP, Tumor Marker 1.5 ng/mL (0.0-8.4)
== END ==
PROVIDERS: Nurse Practitioner Family; PCP Internal Medicine Gastroenterology; Visit Provider Nurse Practitioner Family
DX: K74.60 Unspecified cirrhosis of liver (principal); F10.10 Alcohol abuse, uncomplicated; K74.3 Primary biliary cirrhosis; R94.5 Abnormal results of liver function studies; R73.9 Hyperglycemia, unspecified; R63.4 Abnormal weight loss
CPT/HCPCS: 36415; 80053; 82105; 82140; 82728; 83540; 83550; 85025; 85610

== ENCOUNTER → 2021-09-15 13:34 | Outpatient (POV) | payer OTHER, BC, MEDICAID, SELFPAY | PROVIDERS: Visit Provider Dermatology | DX: Z00.00 Encounter for general adult medical examination without abnormal findings (principal) ==

== ENCOUNTER → 2021-10-06 13:20 | Outpatient (POV) | payer OTHER, MEDICAID, SELFPAY | PROVIDERS: Visit Provider Dermatology | DX: Z00.00 Encounter for general adult medical examination without abnormal findings (principal) ==

== ENCOUNTER 2021-12-01 14:34 | Emergency (ER) | payer OTHER, SELFPAY ==
[2021-12-01 15:01] VITALS: BP 138/87; PULSE 95; RESP 18; TEMP 36.9; O2SAT 95; BMI 27.2
[2021-12-01 16:30] VITALS: BP 150/87; PULSE 83; RESP 18; O2SAT 95
--- NOTE | 2021-12-01 16:36 | PC.NURSE ---
pt states that his boil busted and that he was going to fu with his primary care doctor.
[2021-12-01 16:37] VITALS: BP 150/87; PULSE 83; RESP 18; TEMP 36.9; O2SAT 95
== END 2021-12-01 16:38 | disposition left against medical advice (07) ==
PROVIDERS: Emergency Provider Emergency Medicine; PCP Nurse Practitioner Family
DX: Z53.21 Procedure and treatment not carried out due to patient leaving prior to being seen by health care provider (principal)

== ENCOUNTER → 2022-02-09 08:39 | Outpatient (CLI) | payer MEDICARE, OTHER, SELFPAY ==
--- NOTE | 2022-02-09 08:46 | US_ITS ---
FINAL REPORT CLINICAL HISTORY: CIRRHOSIS FOLLOW UP COMPARISON: July 27, 2021 FINDINGS: Sonographic images of the right upper quadrant were obtained. The pancreas is partially obscured. There is coarsening of the hepatic echotexture which is stable. The portal vein measures approximately 15 mm and has normal directional flow. The gallbladder appears normal without evidence of gallstones.There is no evidence of biliary ductal dilatation.The common duct measures 2 mm. Limited images of the right kidney are unremarkable. IMPRESSION: Liver findings are stable a worrisome for cirrhosis. Reviewed, Interpreted and Dictated by Casey Ho III, MD Transcribed by Vicenta Casillas Authenticated and [facility]
[2022-02-09 10:04] LABS: Ammonia < 9 umol/L (9-30)
[2022-02-09 10:05] LABS: INR 0.96 (0.9-1.1); Prothrombin Time 10.4 seconds (10.1-12.5)
[2022-02-09 10:33] LABS: Chloride 102 mmol/L (98-107); Potassium 4.5 mmoL/L (3.5-5.1); Sodium 140 mmol/L (136-145)
[2022-02-09 10:35] LABS: Blood Urea Nitrogen 21 mg/dl (9-20); Estimated Glomerular Filt Rate 116 ml/min (>60); GFR (African American) 140 ML/MIN (>60)
[2022-02-09 10:36] LABS: Alanine Aminotransferase 35 U/L (12-78); Albumin Level 4.7 g/dl (3.5-5.0); Albumin/Globulin Ratio 1.3 (1.1-1.8); Alkaline Phosphatase 218 U/L (38-126); Anion Gap 15.5 mEq/L (5-15); Aspartate Amino Transferase 36 U/L (17-59); Bilirubin,Total 0.5 mg/dl (0.2-1.3); Carbon Dioxide 27 mmol/L (22.0-30.0); Globulin 3.5 g/dL (1.3-3.2); Glucose 146 mg/dl (74-100); Iron 120 ug/dL (49-181); Total Protein,Serum 8.2 g/dl (6.3-8.2)
[2022-02-09 10:46] LABS: Total Iron Binding Capacity 535 ug/dL (261-462)
[2022-02-09 11:14] LABS: Ferritin 13.1 ng/ml (17.9-464)
[2022-02-09 11:51] LABS: Basophils # 0.1 K/mm3 (0-0.2); Basophils % 1.5 % (0.1-2.0); Eosinophils # 0.4 K/mm3 (0.0-0.4); Eosinophils % 5.8 % (0.1-12.0); Hematocrit 52.7 % (42.0-52.0); Hemoglobin 17.5 g/dL (14.1-18.0); Lymphocytes % 26.9 % (10-50); Mean Corpuscular HGB Conc 33.3 g/dL (31.8-35.4); Mean Corpuscular Hemoglobin 30.6 pg (27.0-31.2); Mean Corpuscular Volume 91.9 fl (80-94); Mean Platelet Volume 8.9 fl (7.4-10.4); Monocytes # 0.3 K/mm3 (0.1-1.0); Monocytes % 4.4 % (1.7-9.3); Neutrophils # 4.5 K/mm3 (1.8-7.8); Neutrophils % 61.3 % (37.0-80.0); Platelet Count 196 K/mm3 (142-424); Red Blood Count 5.73 M/mm3 (4.60-6.20); Red Cell Distribution Width 13.9 % (11.5-17.5); White Blood Count 7.4 K/mm3 (4.8-10.8)
[2022-02-10 10:20] LABS: AFP, Tumor Marker <1.8 ng/mL (0.0-8.4)
== END ==
PROVIDERS: PCP Nurse Practitioner Family; Visit Provider Nurse Practitioner Family
DX: K74.3 Primary biliary cirrhosis (principal); K74.60 Unspecified cirrhosis of liver; K22.70 Barrett's esophagus without dysplasia; F10.10 Alcohol abuse, uncomplicated; R63.4 Abnormal weight loss; R21 Rash and other nonspecific skin eruption; R79.1 Abnormal coagulation profile
CPT/HCPCS: 36415; 76705; 80053; 82105; 82140; 82728; 83540; 83550; 85025; 85610

== ENCOUNTER → 2022-04-26 09:26 | Outpatient (CLI) | payer MEDICARE, OTHER, SELFPAY ==
--- NOTE | 2022-04-26 09:26 | CT_ITS ---
FINAL REPORT TECHNIQUE: Axial CT images were performed from the lung apices through the upper abdomen. Coronal reformats were submitted. This study was performed with techniques to keep radiation doses as low as reasonably achievable (ALARA). Individualized dose reduction techniques using automated exposure control or adjustment of mA and/or kV according to the patient's size were employed. CLINICAL HISTORY: Pulmonary nodules, follow-up COMPARISON: 07/11/2020 FINDINGS: There are severe coronary artery calcifications similar to the prior exam. Multiple borderline sized mediastinal lymph nodes are stable. There is no axillary mass or adenopathy. Mild emphysema is noted. There is mild scarring. Multiple right lower lobe nodules are again seen. Many of these are near the major fissure. A nodule on image 41 is stable at 8 mm. Other right lower lobe nodules are not significantly changed. There is a stable 9 mm left lower lobe nodule. Other small nodules are seen near the left major fissure. There is a calcified granuloma in the left upper lobe. IMPRESSION: Stable, multiple pulmonary nodules are most likely benign. Twelve month follow-up chest CT is recommended to evaluate stability. Reviewed, Interpreted and Dictated by Casey Ho III, MD Transcribed by Cece Guy Authenticated and [facility]
[2022-04-26 10:40] LABS: Alanine Aminotransferase 36 U/L (12-78); Aspartate Amino Transferase 30 U/L (17-59); Bilirubin,Direct 0.4 mg/dl (0.0-0.4); Bilirubin,Indirect 0.2 mg/dL (0.0-0.9); Bilirubin,Total 0.6 mg/dl (0.2-1.3); Bilirubin,Unconjugated 0.2 mg/dL (0.0-1.1)
[2022-04-26 10:41] LABS: Albumin Level 4.3 g/dl (3.5-5.0); Alkaline Phosphatase 196 U/L (38-126); Chol/HDL Ratio 2.4 (1-3.5); Cholesterol 161 mg/dl (140-200); HDL Cholesterol 68 mg/dl (40-60); Total Protein,Serum 7.6 g/dl (6.3-8.2); Triglycerides 160 mg/dl (30-150); VLDL Cholesterol 32 mg/dL (0-40)
[2022-04-26 10:52] LABS: Direct LDL Cholesterol 67.19 mg/dL (100-129)
== END ==
PROVIDERS: PCP Nurse Practitioner Family; Visit Provider Physician Assistant
DX: E78.2 Mixed hyperlipidemia (principal); I10 Essential (primary) hypertension; I25.10 Atherosclerotic heart disease of native coronary artery without angina pectoris; I73.9 Peripheral vascular disease, unspecified; K70.30 Alcoholic cirrhosis of liver without ascites; R06.00 Dyspnea, unspecified; R91.8 Other nonspecific abnormal finding of lung field; Z72.0 Tobacco use
CPT/HCPCS: 36415; 71250; 80061; 80076

== ENCOUNTER → 2022-07-29 07:53 | Outpatient (CLI) | payer MEDICARE, OTHER, SELFPAY ==
--- NOTE | 2022-07-29 07:58 | US_ITS ---
FINAL REPORT CLINICAL HISTORY: LFT ABNORMAL COMPARISON: 02/09/2022 FINDINGS: Sonographic images of the right upper quadrant were obtained. The pancreas is partially obscured.The liver has an cirrhotic appearance. The portal vein is patent with normal direction of flow.The gallbladder appears normal without evidence of gallstones.There is no evidence of biliary ductal dilatation or biliary obstruction.The common duct measures 2 mm. Limited images of the right kidney are unremarkable. No evidence of ascites. IMPRESSION: Cirrhotic appearance of the liver. Reviewed, Interpreted and Dictated by Shyanne Thacker MD Transcribed by Adriana Rivera Authenticated and [facility]
== END ==
PROVIDERS: PCP Nurse Practitioner Family; Visit Provider Nurse Practitioner Family
DX: K74.60 Unspecified cirrhosis of liver (principal); K74.3 Primary biliary cirrhosis; K22.70 Barrett's esophagus without dysplasia; R94.5 Abnormal results of liver function studies; F10.10 Alcohol abuse, uncomplicated; R21 Rash and other nonspecific skin eruption
CPT/HCPCS: 76705

== ENCOUNTER → 2022-09-16 08:06 | Outpatient (CLI) | payer MEDICARE, OTHER, SELFPAY ==
--- NOTE | 2022-09-16 08:13 | XR_ITS ---
FINAL REPORT CLINICAL HISTORY: C/O constant pain in Rt shoulder radiating distally to elbow x 2 mos, NKT. FINDINGS: RIGHT SHOULDER SERIES Three views of the right shoulder were obtained. There is no acute fracture or dislocation. There are mild degenerative changes of the glenohumeral joint and acromioclavicular joint. There is no soft tissue abnormality. IMPRESSION: No acute abnormality. Reviewed, Interpreted and Dictated by Shyanne Thacker MD Transcribed by Terence Stephen Authenticated and [facility]
== END ==
PROVIDERS: PCP Nurse Practitioner Family; Visit Provider Orthopaedic Surgery
DX: M25.511 Pain in right shoulder (principal)
CPT/HCPCS: 73030

== ENCOUNTER → 2022-09-25 10:42 | Outpatient (CLI) | payer MEDICARE, OTHER, SELFPAY ==
--- NOTE | 2022-09-25 10:43 | MR_ITS ---
PROCEDURE INFORMATION: Exam: MR Right Upper Extremity Joint Without Contrast; Shoulder Exam date and time: 09/25/2022 10:42 AM Age: 56 years old Clinical indication: Pain; Shoulder; Right; Additional info: Shoulder pain. Right shoulder pain with limited rom no injury x 1 year TECHNIQUE: Imaging protocol: Magnetic resonance imaging of the right upper extremity without contrast. Exam focused on the shoulder. 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 Nine Glenoid labrum: Anterior superior labral tear noted. Supraspinatus tendon: Mild partial-thickness undersurface tearing of the supraspinatus tendon. Infraspinatus tendon: Minimal chronic tendinosis in the distal infraspinatus tendon. Subscapularis tendon: Unremarkable. No evidence of tear. Teres minor tendon: Unremarkable. No evidence of tear. Tendon of biceps brachii: Unremarkable. No evidence of tear. Glenohumeral ligaments: Unremarkable. Soft tissues: Unremarkable. IMPRESSION: Mild rotator cuff tear and tendinosis as well as anterior superior labral tear as described. Severe arthritic changes of the acromioclavicular joint also noted.
== END ==
PROVIDERS: PCP Nurse Practitioner Family; Visit Provider Orthopaedic Surgery
DX: M25.511 Pain in right shoulder (principal)
CPT/HCPCS: 73221

== ENCOUNTER 2022-10-25 11:22 | Emergency (ER) | payer MEDICARE, OTHER, SELFPAY ==
--- NOTE | 2022-10-25 12:28 | EXP.UTC ---
Discharge Plan Disposition Patient Disposition: Home, Self-Care Condition: Good Prescriptions Prescriptions: New azithromycin [Zithromax] 250 mg tablet 250 mg PO UD DOSE PK Qty: 6 0RF Rx Instructions: Take two (2) tablets today, then one (1) tablet days #2 thru #5 benzonatate 200 mg capsule 200 mg PO BID PRN (Reason: cough) Qty: 30 0RF No Action albuterol sulfate [ProAir HFA] 90 mcg/actuation HFA aerosol inhaler 1 puff IH ONCE PRN vitamin E (dl, acetate) 180 mg (400 unit) capsule 180 mg PO BID Jardiance 25 mg tablet 25 mg PO DAILY Patient Comments: TAKE 1 TABLET 1 TIME EACH DAY IN THE MORNING FOR DIABETES pioglitazone [Actos] 30 mg tablet 30 mg PO DAILY paroxetine HCl 20 mg tablet 20 mg PO DAILY omeprazole 40 mg capsule,delayed release(DR/EC) 40 mg PO DAILY ursodiol 300 mg capsule 600 mg PO BID Patient Comments: TAKE 2 CAPSULES 2 TIMES EACH DAY trazodone 150 mg tablet 150 mg PO HS thiamine mononitrate (vit B1) [Vitamin B-1 (mononitrate)] 100 mg tablet See Rx Instructions .ROUTE .COMPLEX Qty: 60 6RF Dose Instruction: TAKE 1 TABLET 2 TIMES EACH DAY Rx Instructions: TAKE 1 TABLET 2 TIMES EACH DAY aspirin 81 mg tablet,delayed release (DR/EC) See Rx Instructions .ROUTE .COMPLEX Qty: 90 1RF Dose Instruction: TAKE 1 TABLET 1 TIME EACH DAY Rx Instructions: TAKE 1 TABLET 1 TIME EACH DAY Xarelto 2.5 mg tablet See Rx Instructions .ROUTE .COMPLEX Qty: 60 5RF Dose Instruction: TAKE 1 TABLET BY MOUTH TWICE DAILY Rx Instructions: TAKE 1 TABLET BY MOUTH TWICE DAILY sildenafil 50 MG tablet 50 mg PO NEEDED PRN (Reason: ERECTILE DYSFUNCTION) metformin 1,000 mg tablet 1,000 mg PO BID lisinopril-hydrochlorothiazide 20-12.5 mg tablet 1 tab PO DAILY atorvastatin 40 MG tablet 40 mg PO HS potassium chloride 20 MEQ tablet 20 meq PO DAILY Referrals Follow up/Referrals: Annmarie Moran [Primary Care Provider] - See instructions Activity Restrictions/Add. Instructions Additional Instructions/Restrictions: Drink plenty of fluids. Take tylenol or ibuprofen for pain or fever. Take the medications as directed. Follow up with your regular doctor. GO TO THE ER FOR ANY WORSENING SYMPTOMS Clinical Impressions Clinical Impression: Sinusitis, Acute viral syndrome Instructions Patient Instructions: DI for Sinusitis, Coronavirus Disease 2019, Preventing the Spread of Coronavirus Discharge Instructions Discharge ED Provider: Lenin Rosario [facility] HPI General Stated complaint: congestion, weakness Time Seen by Provider: 10/25/22 12:27 History of Present Illness Provider Complaint: He states that for the past 3 days he has had worsening sinus congestion, cough, scratchy throat and headache. Related Data Home Medications Medication Instructions Recorded Confirmed sildenafil 50 mg tablet 50 mg PO NEEDED PRN ERECTILE 07/23/19 09/30/22 DYSFUNCTION atorvastatin 40 mg tablet 40 mg PO HS Cholesterol 07/31/19 09/30/22 potassium chloride 20 mEq 20 meq PO DAILY Supplement 07/31/19 09/30/22 tablet,extended release(part/cryst) pioglitazone 30 mg tablet (Actos) 30 mg PO DAILY Diabetes 12/18/19 09/30/22 omeprazole 40 mg capsule,delayed 40 mg PO DAILY gerd 03/18/20 09/30/22 release paroxetine HCl 20 mg tablet 20 mg PO DAILY Depression 03/18/20 09/30/22 ursodiol 300 mg capsule 600 mg PO BID gall stones 03/18/20 09/30/22 metformin 1,000 mg tablet 1,000 mg PO BID Diabetes 04/01/20 09/30/22 albuterol sulfate 90 mcg/actuation 1 puff inhalation ONCE PRN 09/30/21 09/30/22 aerosol inhaler (ProAir HFA) lisinopril 20 1 tab PO DAILY High blood pressure 09/30/21 09/30/22 mg-hydrochlorothiazide 12.5 mg tablet empagliflozin 25 mg tablet 25 mg PO DAILY 04/06/22 09/30/22 (Jardiance) vitamin E (dl, acetate) 180 mg 180 mg PO BID 04/06/22 09/30/22 (400 unit) c
[2022-10-25 12:45] VITALS: BP 115/73; PULSE 90; RESP 17; TEMP 36.7; O2SAT 95; BMI 26.5
[2022-10-25 12:58] VITALS: BP 115/73; PULSE 89; RESP 18; TEMP 36.9
== END 2022-10-25 13:00 | disposition home or self-care (01) ==
PROVIDERS: Emergency Provider Nurse Practitioner Family; PCP Nurse Practitioner Family
DX: J01.90 Acute sinusitis, unspecified (principal); J02.9 Acute pharyngitis, unspecified; B34.9 Viral infection, unspecified; F17.210 Nicotine dependence, cigarettes, uncomplicated; I10 Essential (primary) hypertension; I25.10 Atherosclerotic heart disease of native coronary artery without angina pectoris; E11.40 Type 2 diabetes mellitus with diabetic neuropathy, unspecified; E78.5 Hyperlipidemia, unspecified; Z79.84 Long term (current) use of oral hypoglycemic drugs
CPT/HCPCS: 99204; 99212; G0463

== ENCOUNTER → 2023-01-21 08:45 | Outpatient (CLI) | payer MEDICARE, SELFPAY ==
--- NOTE | 2023-01-21 08:49 | US_ITS ---
FINAL REPORT CLINICAL HISTORY: CIRRHOSIS COMPARISON: 07/29/2022 FINDINGS: Sonographic images of the right upper quadrant were obtained. The pancreas is partially obscured. There is a coarse echotexture of the liver, with small areas of peripheral nodularity, compatible with the clinical diagnosis of cirrhosis. No evidence of ascites is seen. The gallbladder appears normal without evidence of gallstones.There is no evidence of biliary ductal dilatation.The common duct measures 2.8 mm. Limited images of the right kidney are unremarkable. IMPRESSION: Cirrhotic liver, unchanged since the prior examination. Otherwise unremarkable ultrasound of the abdomen, limited. Reviewed, Interpreted and Dictated by Rafael Leary MD Transcribed by Emilia Flores Authenticated and [facility]
== END ==
LOC: RAD 08:46
PROVIDERS: PCP Nurse Practitioner Family; Visit Provider Nurse Practitioner Family
DX: K74.60 Unspecified cirrhosis of liver (principal); K74.3 Primary biliary cirrhosis; F10.10 Alcohol abuse, uncomplicated; K22.70 Barrett's esophagus without dysplasia; R94.5 Abnormal results of liver function studies
CPT/HCPCS: 76705

== ENCOUNTER 2023-11-29 13:48 | Outpatient (CLI) | payer MEDICARE, SELFPAY ==
[2023-11-29 14:24] LABS: Basophils # 0.1 K/mm3 (0-0.2); Basophils % 1.3 % (0.1-2.0); Eosinophils # 0.4 K/mm3 (0.0-0.4); Eosinophils % 5.7 % (0.1-12.0); Hematocrit 47.8 % (42.0-52.0); Hemoglobin 15.7 g/dL (14.1-18.0); Lymphocytes # 1.7 K/mm3 (0.7-4.5); Lymphocytes % 26.5 % (10-50); Mean Corpuscular HGB Conc 32.7 g/dL (31.8-35.4); Mean Corpuscular Hemoglobin 27.9 pg (27.0-31.2); Mean Corpuscular Volume 85.1 fl (80-94); Mean Platelet Volume 7.6 fl (7.4-10.4); Monocytes # 0.3 K/mm3 (0.1-1.0); Neutrophils % 61.4 % (37.0-80.0); Platelet Count 141 K/mm3 (142-424); Red Blood Count 5.62 M/mm3 (4.60-6.20); Red Cell Distribution Width 16.4 % (11.5-17.5); White Blood Count 6.5 K/mm3 (4.8-10.8)
[2023-11-29 14:27] LABS: INR 0.97 (0.9-1.1); Prothrombin Time 10.9 seconds (10.1-12.5)
[2023-11-29 14:30] LABS: Albumin Level 4.3 g/dl (3.5-5.0); Chloride 106 mmol/L (98-107); Potassium 4.2 mmoL/L (3.5-5.1); Sodium 138 mmol/L (136-145)
[2023-11-29 14:32] LABS: Alanine Aminotransferase 29 U/L (12-78); Aspartate Amino Transferase 31 U/L (17-59); Blood Urea Nitrogen 14 mg/dl (9-20); Estimated Glomerular Filt Rate 115 ml/min (>60); GFR (African American) 140 ML/MIN (>60)
[2023-11-29 14:33] LABS: Albumin/Globulin Ratio 1.2 (1.1-1.8); Alkaline Phosphatase 155 U/L (38-126); Ammonia 11 umol/L (9-30); Anion Gap 12.2 mEq/L (5-15); Bilirubin,Total 0.5 mg/dl (0.2-1.3); Calcium 9.4 mg/dl (8.4-10.2); Carbon Dioxide 24 mmol/L (22.0-30.0); Globulin 3.7 g/dL (1.3-3.2); Glucose 133 mg/dl (74-100); Iron 68 ug/dL (49-181)
[2023-11-29 14:42] LABS: Total Iron Binding Capacity 411 ug/dL (261-462)
[2023-11-29 15:06] LABS: Ferritin 7.12 ng/ml (17.9-464)
== END 2023-11-29 23:59 | disposition home or self-care (01) ==
LOC: LAB 13:51
PROVIDERS: PCP Nurse Practitioner Family; Visit Provider Nurse Practitioner Family
DX: K70.30 Alcoholic cirrhosis of liver without ascites; E61.1 Iron deficiency; R79.9 Abnormal finding of blood chemistry, unspecified
CPT/HCPCS: 36415; 80053; 82140; 82728; 83540; 83550; 85025; 85610

== ENCOUNTER 2023-12-26 07:17 | Outpatient (CLI) | payer MEDICARE, SELFPAY ==
--- NOTE | 2023-12-26 07:19 | US_ITS ---
FINAL REPORT CLINICAL HISTORY: CIRRHOSIS F/U COMPARISON: None FINDINGS: There is a heterogeneous hepatic echotexture with mildly irregular contour consistent with history of cirrhosis. The hepatic veins are intact. The portal vein is patent with normal directional flow. The gallbladder is present with mild wall thickening. There are no gallstones. Common duct is within normal limits at 2 mm. The right kidney is unremarkable and measures 11.1 cm. The pancreas is partially obscured. IMPRESSION: Findings consistent with cirrhosis. Mild wall thickening of the gallbladder. Authenticated and [facility]
--- NOTE | 2023-12-26 07:22 | CT_ITS ---
FINAL REPORT TECHNIQUE: Axial imaging of the chest was obtained without contrast. Reformatted images were also obtained and reviewed.This study was performed with techniques to keep radiation doses as low as reasonably achievable, (ALARA). Individualized dose reduction technique using automated exposure control or adjustment of mA and/or kV according to the patient's size were employed. CLINICAL HISTORY: .NODULE F/U COMPARISON: 04/26/2022 FINDINGS: There are severe coronary artery calcifications. There is no axillary adenopathy. Small mediastinal lymph nodes are seen. Heart size is normal. There is no pericardial or pleural effusion. Limited images of the upper abdomen demonstrates partially imaged splenomegaly. There is moderate emphysema. Significant worsening nodular opacity is seen in the medial right lower lobe measuring 22 mm, previously measured 6 mm. Other smaller nodules in the anterior right lower lobe are stable. IMPRESSION: Worsening nodular opacities in the medial right lower lobe worrisome for neoplasm. Recommend PET/CT for further evaluation. Reviewed, Interpreted and Dictated by Casey Ho III, MD Transcribed by Rafaela Leslie Authenticated and [facility]
== END 2023-12-26 23:59 | disposition home or self-care (01) ==
LOC: RAD 07:19
PROVIDERS: PCP Nurse Practitioner Family; Visit Provider Nurse Practitioner Family
DX: K74.3 Primary biliary cirrhosis (principal); R91.8 Other nonspecific abnormal finding of lung field
CPT/HCPCS: 71250; 76705

== ENCOUNTER 2024-05-18 08:46 | Outpatient (CLI) | payer MEDICARE, MEDICAID, SELFPAY ==
--- NOTE | 2024-05-18 08:47 | CT_ITS ---
FINAL REPORT CLINICAL HISTORY: PAD, claudication COMPARISON: None FINDINGS: Post contrast axial imaging of the aorta and bilateral lower extremity was obtained and reviewed. This study was performed with techniques to keep radiation doses as low as reasonably achievable (ALARA). Individualized dose reduction techniques using automated exposure control or adjustment of mA and/or kV according to the patient's size were employed. There is no evidence of aortic aneurysm. There is no evidence of aortic stenosis. There are calcifications at the origins of the renal arteries bilaterally, on the right producing 50% stenosis of the proximal right renal artery, without significant stenosis of the left renal artery. There is 50% stenosis of both the proximal celiac and superior mesenteric arteries. The inferior mesenteric artery is patent. There are dense calcifications in the aortoiliac vessels. There is a 70% right proximal common iliac artery stenosis, and 80% distal left common iliac artery stenosis. The internal iliac arteries are patent. Right: There is bulky calcification in the proximal right common femoral artery, which produces approximately 90% luminal diameter stenosis. Scattered calcifications are present throughout the superficial femoral artery. There is 90% stenosis of the distal common femoral artery in the adductor canal. There is 50% stenosis of the popliteal artery, and two-vessel runoff via the anterior and posterior tibial arteries. Left: There is bulky calcification of the origin of the left common femoral artery, with approximately 50% luminal diameter stenosis. The distal superficial femoral artery on the left demonstrates 90% luminal diameter stenosis in the adductor canal. There is 50% narrowing of the popliteal artery, with three-vessel runoff to the foot, with the anterior and posterior tibial arteries are dominant. A moderate-sized right pleural effusion is noted, partially loculated. The liver has a mildly nodular contour. The spleen is mildly enlarged. The remaining solid organs are unremarkable. The appendix is unremarkable in appearance. The bladder is incompletely distended. Postoperative changes are noted in the mid sigmoid colon. IMPRESSION: 50% stenosis of the proximal right renal artery, as well as 50% stenosis of the proximal celiac and superior mesenteric arteries. There is 70% stenosis of the right proximal common iliac artery, and 80% stenosis of the distal left common iliac artery. Stenoses measuring up to 90% are noted in the right lower extremity involving the common femoral artery proximally and in the adductor canal. There is two-vessel runoff on the right. Bulky calcification also produces narrowing of the common femoral artery to 50% luminal diameter, in the distal SFA is narrowed by 90% in the adductor canal. There is three-vessel runoff on the left. Suggest catheter angiography for further evaluation if clinically indicated. Reviewed, Interpreted and Dictated by Rafael Leary MD Transcribed by Emilia Flores Authenticated and [facility]
[2024-05-18 09:15] LABS: Blood Urea Nitrogen 17 mg/dl (9-20); Estimated Glomerular Filt Rate 115 ml/min (>60); GFR (African American) 139 ML/MIN (>60)
[2024-05-18] MEDS: 0.9 % SODIUM CHLORIDE 50 ML VIAL 100 ML IV (09:33)
[2024-05-18] MEDS: IOPAMIDOL-370 (76%);100ML BOTTLE 120 ML IV (09:33)
[2024-05-18] MEDS: SODIUM CHLORIDE 0.9% 10ML SYR (RAD ONLY) 10 ML IV (09:33)
== END 2024-05-18 23:59 | disposition home or self-care (01) ==
LOC: RAD 08:47
PROVIDERS: PCP Nurse Practitioner Family; Visit Provider Physician Assistant
DX: I73.9 Peripheral vascular disease, unspecified (principal); E11.69 Type 2 diabetes mellitus with other specified complication; E78.2 Mixed hyperlipidemia; I10 Essential (primary) hypertension; I25.10 Atherosclerotic heart disease of native coronary artery without angina pectoris
CPT/HCPCS: 36415; 75635; 82565; 84520; Q9967

== ENCOUNTER 2024-05-22 11:49 | Outpatient (CLI) | payer MEDICARE, MEDICAID, SELFPAY ==
[2024-05-22 12:50] LABS: Basophils # 0.1 K/mm3 (0-0.2); Basophils % 1.2 % (0.1-2.0); Eosinophils # 0.5 K/mm3 (0.0-0.4); Hematocrit 46.6 % (42.0-52.0); Hemoglobin 15.3 g/dL (14.1-18.0); Lymphocytes % 20.2 % (10-50); Mean Corpuscular HGB Conc 32.8 g/dL (31.8-35.4); Mean Corpuscular Hemoglobin 29.6 pg (27.0-31.2); Mean Corpuscular Volume 90.1 fl (80-94); Mean Platelet Volume 9.7 fl (7.4-10.4); Monocytes # 0.3 K/mm3 (0.1-1.0); Monocytes % 6.2 % (1.7-9.3); Neutrophils # 3.1 K/mm3 (1.8-7.8); Platelet Count 169 K/mm3 (142-424); Red Blood Count 5.17 M/mm3 (4.60-6.20); Red Cell Distribution Width 14.7 % (11.5-17.5)
[2024-05-22 13:24] LABS: Albumin Level 4.3 g/dl (3.5-5.0); Chloride 102 mmol/L (98-107); Sodium 139 mmol/L (136-145)
[2024-05-22 13:26] LABS: Bilirubin,Unconjugated 0.4 mg/dL (0.0-1.1); Blood Urea Nitrogen 15 mg/dl (9-20); Estimated Glomerular Filt Rate 115 ml/min (>60); GFR (African American) 139 ML/MIN (>60)
[2024-05-22 13:27] LABS: Alanine Aminotransferase 44 U/L (12-78); Alkaline Phosphatase 208 U/L (38-126); Aspartate Amino Transferase 51 U/L (17-59); Bilirubin,Direct 0.4 mg/dl (0.0-0.4); Bilirubin,Indirect 0.4 mg/dL (0.0-0.9); Bilirubin,Total 0.8 mg/dl (0.2-1.3); Calcium 9.1 mg/dl (8.4-10.2); Carbon Dioxide 27 mmol/L (22.0-30.0); Cholesterol 181 mg/dl (140-200); Glucose 332 mg/dl (74-100); Total Protein,Serum 8.2 g/dl (6.3-8.2); Triglycerides 131 mg/dl (30-150); VLDL Cholesterol 26 mg/dL (0-40)
[2024-05-22 13:28] LABS: Chol/HDL Ratio 1.9 (1-3.5); HDL Cholesterol 93 mg/dl (40-60)
[2024-05-22 13:59] LABS: Free T4 (Free Thyroxine) 1.02 ng/dl (0.78-2.19)
[2024-05-22 14:14] LABS: Thyroid Stimulating Hormone 2.82 uIU/mL (0.465-4.68)
[2024-05-22 14:29] LABS: Uric Acid 4.5 mg/dl (3.5-8.5)
[2024-05-22 14:40] LABS: Direct LDL Cholesterol 52.66 mg/dL (100-129)
[2024-05-22 15:54] LABS: Hemoglobin A1C 8.2 % (4.0-6.0)
== END 2024-05-22 23:59 | disposition home or self-care (01) ==
LOC: LAB 11:49
PROVIDERS: PCP Nurse Practitioner Family; Visit Provider Physician Assistant
DX: I73.9 Peripheral vascular disease, unspecified (principal); E11.69 Type 2 diabetes mellitus with other specified complication; E78.2 Mixed hyperlipidemia; I10 Essential (primary) hypertension; I25.10 Atherosclerotic heart disease of native coronary artery without angina pectoris; M79.672 Pain in left foot
CPT/HCPCS: 36415; 80048; 80061; 80076; 83036; 83735; 84439; 84443; 84550; 85025

== ENCOUNTER 2024-05-24 14:29 | Observation (INO) | payer MEDICARE, MEDICAID, SELFPAY ==
[2024-05-24] VITALS (33 sets, daily range): BP systolic 137–176; BP diastolic 73–96; PULSE 68–98; RESP 16–20; TEMP 36.4–37.1; O2SAT 90–98; BMI 27.8
--- NOTE | 2024-05-24 07:08 | IR_ITS ---
APPROVED REPORT Patient Location: Outpatient PROCEDURES Pigtail catheter placement in the abdominal aorta Abdominal aortography Repositioning of the catheter in the abdominal aorta Bilateral iliofemoral runoff Bare-metal stent deployment to the left common iliac artery extending into the left external iliac artery Bare-metal stent deployment to the ostial segment of the right common iliac artery extending into the right external iliac artery INDICATION Abnormal CTA, Peripheral artery disease, Marquette claudication class III and IV, 40 mm gradient across the right common iliac artery plaque Informed consent was obtained prior to the procedure. COMPLICATIONS none Estimated Blood Loss: less than 10ml TECHNIQUE One percent lidocaine used to anesthetize the right groin. The right femoral artery was accessed via the Seldinger technique and a 5 Welsh sheath was placed in the right femoral artery. The pigtail catheter was advanced and abdominal aortography was performed. The catheter was then repositioned and bilateral iliofemoral runoff was performed. Following this and a long advantage wire was then used to cannulate the ostium of the left common iliac artery and extending down into the left SFA under fluoroscopic guidance. The 5 Welsh sheath was removed and a 45 cm 6 Welsh destination sheath was advanced to the proximal portion of the left common iliac artery. Therapeutic heparin was administered giving a therapeutic ACT. An 8 mm x 37 mm EV 3 stent was deployed at 14 emma in the distal left common iliac artery extending into the left external iliac artery. Excellent angiographic results were obtained with less than 10% residual stenosis. The sheath was pulled back into the right common iliac artery and the wire advanced into the aorta. The sheath was advanced into the aorta and a manual pullback under continuous arterial pressure was performed. As the sheath left the aorta and extended into the right common and external iliac artery a 45 mm gradient was identified. Because of this an 8 mm x 59 mm balloon mounted stent was deployed in the ostium of the right common iliac artery extending into the right external iliac artery at 14 emma. An 9 mm x 20 mm balloon was then advanced into the ostial segment of the common iliac artery and deployed to 14 emma to post dilate. No Breaux stenotic gradient was identified after the procedure. Following this the apparatus was removed the long destination sheath was exchanged for a 6 destination sheath and patient was transferred to the postop putting in stable condition for postoperative management and sheath removal ANGIOGRAPHIC RESULTS Distal abdominal aorta is moderately atheromatous and calcified with a stenosis of 10 to 20% Right common iliac artery has an eccentric 40% calcified stenosis with an additional 20% stenosis while the internal iliac artery has an ostial 70% calcified stenosis and proximal 80% stenosis. The right external iliac artery has a concentric 40 to 50% calcified stenosis. The vessel was then widely patent into the right common femoral artery which then has a calcified 70% plaque at the right common femoral artery. The right profunda femoris artery is widely patent the right superficial femoral artery has a proximal eccentric 10% stenosis and is widely patent into the popliteal artery. The popliteal artery is subtotally occluded at mid vessel and a short calcified segment and then reconstitutes. The anterior and posterior tibialis arteries are patent with two-vessel runoff into the right foot. The right peroneal artery is patent in the proximal segment and then tapers at mid calf. The left common iliac artery has a stent in the ostial and proximal mid and distal segment which is widely patent with minimal in-stent restenosis. The left external iliac artery has a calcified eccentric 70% stenosis. The left internal iliac artery is patent with a proximal 40% calcified stenosis the left common femoral artery is widely patent the left profunda femoris artery is patent the left superficial femoral artery has moderate calcification throughout its proximal segment and then subtotally occluded at Michael's canal as it enters into the popliteal artery. 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 Xarelto 2.5 twice daily plus aspirin 81 mg daily 2. Recommend physical therapy 3. I would like to treat the bilateral SFA popliteal artery subtotal occlusions medically. Both of these are amenable to shockwave lithotripsy and balloon coated angioplasty should patient's claudication become recalcitrant in the future 4. LDL less than 55 achieved with high intensity statin Electronically signed by : Jasvir Storey MD 05/24/2024 12:59:15
[2024-05-24 11:13] LABS: Basophils # 0.1 K/mm3 (0-0.2); Basophils % 1.1 % (0.1-2.0); Eosinophils # 0.6 K/mm3 (0.0-0.4); Eosinophils % 7.7 % (0.1-12.0); Hematocrit 47.6 % (42.0-52.0); Hemoglobin 15.7 g/dL (14.1-18.0); Lymphocytes # 1.5 K/mm3 (0.7-4.5); Lymphocytes % 20.4 % (10-50); Mean Corpuscular Hemoglobin 29.6 pg (27.0-31.2); Mean Corpuscular Volume 89.6 fl (80-94); Mean Platelet Volume 9.3 fl (7.4-10.4); Monocytes # 0.4 K/mm3 (0.1-1.0); Monocytes % 5.6 % (1.7-9.3); Neutrophils # 4.8 K/mm3 (1.8-7.8); Neutrophils % 64.7 % (37.0-80.0); Platelet Count 181 K/mm3 (142-424); Red Blood Count 5.31 M/mm3 (4.60-6.20); Red Cell Distribution Width 14.6 % (11.5-17.5); White Blood Count 7.5 K/mm3 (4.8-10.8)
[2024-05-24 11:19] LABS: Chloride 103 mmol/L (98-107)
[2024-05-24 11:20] LABS: Potassium 4.5 mmoL/L (3.5-5.1); Sodium 139 mmol/L (136-145)
[2024-05-24 11:23] LABS: Anion Gap 17.5 mEq/L (5-15); Blood Urea Nitrogen 18 mg/dl (9-20); Calcium 9.8 mg/dl (8.4-10.2); Carbon Dioxide 23 mmol/L (22.0-30.0); Creatinine Clearance Estimated 139 mL/min (50-200); Estimated Glomerular Filt Rate 115 ml/min (>60); GFR (African American) 139 ML/MIN (>60); Glucose 191 mg/dl (74-100)
[2024-05-24] MEDS: diphenhydrAMINE 50MG/ML VIAL 50 MG IV (11:47)
[2024-05-24] MEDS: LIDOCAINE 1% 10ML MDV 20 ML IJ (11:48)
[2024-05-24] MEDS: MIDAZOLAM HCL 1MG/ML 5ML VIAL 1 MG IV (11:51)
[2024-05-24] MEDS: 0.9 % SODIUM CHLORIDE 500 ML 25 ML IV (12:33)
[2024-05-24] MEDS: FENTANYL 100MCG/2ML VIAL 50 MCG IV (12:33)
[2024-05-24] MEDS: HEPARIN 1,000 UNITS/500ML NS (CATH LAB) 3000 UNIT IV (12:35)
[2024-05-24] MEDS: CLOPIDOGREL 300MG TABLET 300 MG PO (12:42)
[2024-05-24] MEDS: IOHEXOL-240 100ML BOTTLE 220 ML IV (13:08)
--- NOTE | 2024-05-24 13:33 | SUR.PHASEII ---
ACT check 287
[2024-05-24] MEDS: PROTAMINE SULFATE 50MG/5ML VIAL (CATH LAB) 30 MG IV (13:41)
--- NOTE | 2024-05-24 14:11 | SUR.PHASEII ---
ACT 167
--- NOTE | 2024-05-24 14:15 | HMH.PHAINT1 ---
Pharmacy Intervention Comments: MEDICATION RECONCILIATION COMPLETED ON PATIENT USING EXTERNAL FILL HISTORY FROM PHARMACY. -REJI DUDLEY, JAMALD
--- NOTE | 2024-05-24 14:41 | P.HP_ITS ---
History of Present Illness *Admission Date: 05/24/24 *Reason for visit:: PAD, status post common iliac stents *History of present illness: 58-year-old male with history of CAD, diabetes, PAD. Former smoker. Presented for elective lower extremity runoff due to peripheral artery disease. Found to have significant disease in his common and internal iliacs. Underwent stenting today. Medicine was consulted due to delayed removal of sheath. Patient stable and in supine position at time of evaluation. On room air. Family at bedside. Updated of plan. Patient no complaints of pain at this time. Denies any shortness of breath or chest pain. Alert and oriented x 3 PFSH [facility] Disclaimer: The information contained in this section may have been updated after the patient was seen, as this information can be updated by other users. Medical History Pain in left foot Right shoulder pain Pulmonary nodules Claudication Weight loss Early satiety CAD (coronary artery disease) Dyspnea Neuropathy Hyperlipidemia Herniated intervertebral disc of lumbar spine Back Pain Herniated intervertebral disc of lumbar spine Surgical History S/P lumbar discectomy Social History Smoking Status: Current every day smoker tobacco type: cigarettes packs per day: 1 second hand exposure: Yes alcohol intake: former substance use type: marijuana current occupational status: disabled Travel in the last 8 weeks: Inside the [place] household members: spouse housing: house 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 current occupational exposures/hazards: No caffeine: Yes Have you lived/traveled outside [place] in past 30 days?: No Contact w/someone who lives/traveled outside US past 30 days?: No Exposure to someone with infectious disease in past 14 days?: No Do you have a fever (greater than 100.4 F or 38 C)?: No Have you tested positive for COVID-19: No Exposed to someone with COVID-19 in past 14 days?: No Do you have a sore throat?: No Do you have a cough?: No Do you have any weakness?: No Do you have any diarrhea?: No Are you experiencing any unusual bleeding?: No Do you have any muscle aches/pain?: No Do you have any abdominal pain?: No Are you experiencing loss of taste or smell?: No Other Medical History Have you received the Flu Vaccine for this season: No Have you received the Pneumonia Vaccine: Yes Review of Systems Review of Systems Review of systems (narrative): 14 point review of systems performed, pertinent positives and negatives as per HPI Meds Home Medications and Allergies Home Medications ?Medication ?Instructions ?Recorded ?Confirmed ?Type sildenafil 50 mg tablet 50 mg PO NEEDED PRN ERECTILE 07/23/19 05/24/24 History DYSFUNCTION atorvastatin 40 mg tablet 40 mg PO HS 07/31/19 05/24/24 History potassium chloride 20 mEq 20 meq PO BID 07/31/19 05/24/24 History tablet,extended release(part/cryst) pioglitazone 30 mg tablet (Actos) 30 mg PO DAILY 12/18/19 05/24/24 History paroxetine HCl 20 mg tablet 20 mg PO DAILY 03/18/20 05/24/24 History ursodiol 300 mg capsule 600 mg PO BID 03/18/20 05/24/24 History empagliflozin 25 mg tablet 25 mg PO DAILY 04/06/22 05/24/24 History (Jardiance) omeprazole 40 mg capsule,delayed 40 mg PO DAILY 12/01/22 05/24/24 History release budesonide 160 mcg-glycopyr 9 2 inh inhalation DAILY 05/22/24 05/24/24 History mcg-formot 4.8 mcg/actuation HFA inhaler (Breztri Aerosphere) lisinopril 10 mg tablet 10 mg PO DAILY 05/22/24 05/24/24 History albuterol sulfate 90 mcg/actuation 2 puff inhalation QIDP PRN 05/24/24 05/24/24 History aerosol inhaler Shortness Of Breath aspirin 81 mg tablet,delayed 81 mg PO DAILY 05/24/24 05/24/24 History release glipizide 5 mg tablet, extended 5 mg PO BID 05/24/24 05/24/24 History release 24 hr rivaroxaban 2.5 mg tablet (Xarelto) 2.5 mg PO BID 05/24/24 05/24/24 History trazodone 150 mg tablet 150 mg PO HS Insomnia 05/24/24 05/24/24 History New Prescriptions to Start Prescriptions: Allergies Allergy/AdvReac Type Severity Reaction Status Date / Time morphine Allergy Intermediate Agitated Verified 05/22/24 11:17 Exam Data for Last 24 hours Vital signs and Labs for Last 24 Hours: Pulse Resp BP Pulse Ox O2 Del Method 74 18 151/83 H 94 L Room Air 05/24/24 14:30 05/24/24 14:30 05/24/24 14:30 05/24/24 14:30 05/24/24 14:30 Laboratory Results - last 24 hr 05/24/24 11:06: WBC 7.5 D, RBC 5.31, Hgb 15.7, Hct 47.6, MCV 89.6, MCH 29.6, MCHC 33.0, RDW 14.6, Plt Count 181, MPV 9.3, Neut % (Auto) 64.7, Lymph % (Auto) 20.4, [place] % (Auto) 5.6, Eos % (Auto) 7.7, Baso % (Auto) 1.1, Neut # (Auto) 4.8, Lymph # (Auto) 1.5, [place] # (Auto) 0.4, Eos # (Auto) 0.6 H, Baso # (Auto) 0.1, Sodium 139, Potassium 4.5, Chloride 103, Carbon Dioxide 23, Anion Gap 17.5 H, BUN 18, Creatinine 0.70, Estimated Creat Clear 139, Estimated GFR 115, Est GFR ( Amer) 139, Glucose 191 H, Calcium 9.8 I & O for Last 24 hours: Intake & Output 05/21/24 05/22/24 05/23/24 05/24/24 23:59 23:59 23:59 23:59 Weight 87.8 kg Constitutional Constitutional: no acute distress, average body habitus and cooperative *Routine HEENT Exam Head: Present normocephalic Eye: Present EOMI and PERRL ENT: Present mucous membranes moist *Routine Neck Exam Neck: Present supple; Absent lymphadenopathy *Routine Respiratory Exam Respiratory: Present CTA bilaterally *Routine Cardiovascular Exam Cardiovascular: Present RRR *Routine Abdominal Exam Abdominal: Present soft and normoactive bowel sounds; Absent tenderness *Routine Rectal Exam Rectal:: deferred *Routine Genitalia Exam Genitalia:: deferred *Routine Extremities Exam Extremities: Absent cyanosis, clubbing or edema Comments: Weak pulses bilaterally in lower extremities; right femoral access site clean dry and intact. No significant hematoma. No active bleeding *Routine Skin Exam Skin: Present warm; Absent rash *Routine Neurological Exam Neurological: Present alert, oriented X3 and moving all extremities; Absent altered mental status Assessment and Plan *Assessment and plan (1) Claudication: Status: Acute Category: Medical Code(s): I73.9 - Peripheral vascular disease, unspecified (2) PAD (peripheral artery disease): Status: Chronic Category: Medical Code(s): I73.9 - Peripheral vascular disease, unspecified (3) Overweight (BMI 25.0-29.9): Status: Acute Category: Medical Code(s): E66.3 - Overweight (4) Diabetes mellitus with diabetic neuropathy: Status: Acute Qualifiers: Diabetes mellitus type: type 2 Diabetes mellitus residential insulin use: without manager terminal use Qualified Code(s): E11.40 - Type 2 diabetes mellitus with diabetic neuropathy, unspecified Category: Medical Code(s): E11.40 - Type 2 diabetes mellitus with diabetic neuropathy, unspecified (5) CAD (coronary artery disease): Status: Chronic Qualifiers: Coronary Disease-Associated Artery/Lesion type: [place] artery [place] vs. transplanted heart: [place] heart Associated angina: without angina Qualified Code(s): I25.10 - Atherosclerotic heart disease of [place] coronary artery without angina pectoris Category: Medical Code(s): I25.10 - Atherosclerotic heart disease of [place] coronary artery without angina pectoris (6) HTN (hypertension): Status: Chronic Qualifiers: Hypertension type: essential hypertension Qualified Code(s): I10 - Essential (primary) hypertension Category: Medical Code(s): I10 - Essential (primary) hypertension (7) Hyperlipidemia: Status: Chronic Qualifiers: Hyperlipidemia type: mixed hyperlipidemia Qualified Code(s): E78.2 - Mixed hyperlipidemia Category: Medical Code(s): E78.5 - Hyperlipidemia, unspecified Plan 58-year-old male who presented for elective outpatient runoff of lower extremities. Found to have significant disease in his common and internal iliacs. Underwent stenting of bilateral common and internal iliacs. Procedure tolerated well. Unable to Perclose or sutural femoral access. Required delayed removal of sheath. Will need monitoring overnight as he needs to lay flat and is at high risk of bleeding. Significant revascularization performed today. Discussed case with cardiology, request admission for monitoring overnight. I agreed to admit for inpatient care. Hemodynamically stable at this time. White count normal at 7.5, hemoglobin 15.7. Kidney function normal with BUN 18, creatinine 0.7. Repeat CBC, CMP, magnesium ordered for the morning. Will resume home medications for diabetes including Jardiance. Continue fingersticks ACHS with sliding scale insulin ACHS. Resume home aspirin 81 mg daily, Lipitor 40 mg nightly, lisinopril 10 mg daily, Paxil 20 mg daily, Xarelto 2.5 mg twice daily, trazodone 150 mg nightly for sleep, and ursodiol 600 mg twice daily for cirrhosis. Cardiology consulted to evaluate in the morning. Anticipate discharge tomorrow if no further complications overnight. Stable on room air. Full code Diabetic diet
[2024-05-24 14:50] LABS: CATHL Activated Clotting Time 375 SEC (74-125)
[2024-05-24 14:51] LABS: CATHL Activated Clotting Time 287 SEC (74-125)
[2024-05-24 14:51] LABS: CATHL Activated Clotting Time 167 SEC (74-125)
--- NOTE | 2024-05-24 17:52 | PC.NURSE ---
pt lying supine in bed. received 2 stents today in the [employer]- 1 to R iliac and one to the L iliac. dressing to the R groin c/d/i. no complaints of pain. vss. pt to remain flat until 2029 and not to stand until 2129. area of redness to the L heel-foam dressing applied. no needs at this time. call light in reach.
[2024-05-24 20:06] LABS: POC Glucose,Bedside 100 (70-110)
[2024-05-24] MEDS: PANTOPRAZOLE 40MG TABLET 40 MG PO (21:47)
[2024-05-24] MEDS: ATORVASTATIN 40MG TABLET 40 MG PO (21:47)
[2024-05-24] MEDS: POTASSIUM CHLORIDE 20MEQ TAB 20 MEQ PO (21:47)
[2024-05-24] MEDS: PATIENT'S OWN HOME MEDICATION (Trazodone 150 mg tablet) 150 EACH PO (21:48)
[2024-05-24] MEDS: GABAPENTIN 100MG CAPSULE 200 MG PO (21:55)
--- NOTE | 2024-05-24 22:11 | PC.NURSE ---
patient is complaining of nerve like left foot pain - contacted hospitalist, gabapentin order.
[2024-05-25] VITALS: BP 112/65; PULSE 80; PULSE 87; RESP 16; TEMP 36.9; O2SAT 95
[2024-05-25 04:00] VITALS: BP 124/66; PULSE 80; PULSE 88; RESP 16; TEMP 36.4; O2SAT 93; BMI 60.8
[2024-05-25] MEDS: humaLOG 100 UNITS/ML 10ML VIAL (SSI) SUBCUT (05:25)
--- NOTE | 2024-05-25 06:31 | PC.NURSE ---
This RN took over care at 0100. Alert and oriented. Rested well. Took a shower this AM, femoral site CDI. Left foot, closer to the heel, a crack observed to the skin, not open, no redness, small padded dressing in place. Room air. No complaints of pain for patient. NSR on tele. Call light in reach.
[2024-05-25 06:59] LABS: Basophils % 0.6 % (0.1-2.0); Eosinophils # 0.4 K/mm3 (0.0-0.4); Hematocrit 44.6 % (42.0-52.0); Lymphocytes # 0.9 K/mm3 (0.7-4.5); Mean Corpuscular HGB Conc 31.6 g/dL (31.8-35.4); Mean Corpuscular Hemoglobin 28.5 pg (27.0-31.2); Mean Corpuscular Volume 90.1 fl (80-94); Mean Platelet Volume 9.6 fl (7.4-10.4); Monocytes # 0.4 K/mm3 (0.1-1.0); Monocytes % 8.1 % (1.7-9.3); Neutrophils # 3.7 K/mm3 (1.8-7.8); Neutrophils % 67.9 % (37.0-80.0); Platelet Count 152 K/mm3 (142-424); Red Blood Count 4.95 M/mm3 (4.60-6.20); Red Cell Distribution Width 14.7 % (11.5-17.5); White Blood Count 5.4 K/mm3 (4.8-10.8)
[2024-05-25 07:17] LABS: Chloride 104 mmol/L (98-107); Potassium 4.4 mmoL/L (3.5-5.1); Sodium 138 mmol/L (136-145)
[2024-05-25 07:20] LABS: Anion Gap 12.4 mEq/L (5-15); Blood Urea Nitrogen 25 mg/dl (9-20); Calcium 9.2 mg/dl (8.4-10.2); Carbon Dioxide 26 mmol/L (22.0-30.0); Creatinine Clearance Estimated 81 mL/min (50-200); Estimated Glomerular Filt Rate 76 ml/min (>60); GFR (African American) 92 ML/MIN (>60); Glucose 217 mg/dl (74-100)
--- NOTE | 2024-05-25 07:24 | P.DS_ITS ---
General Admission date:: 05/24/24 Discharge date: 05/25/24 HPI HPI HPI: 58-year-old male with history of CAD, diabetes, PAD. Former smoker. Presented for elective lower extremity runoff due to peripheral artery disease. Found to have significant disease in his common and internal iliacs. Underwent stenting today. Medicine was consulted due to delayed removal of sheath. Patient stable and in supine position at time of evaluation. On room air. Family at bedside. Updated of plan. Patient no complaints of pain at this time. Denies any shortness of breath or chest pain. Alert and oriented x 3 Hospital Course Hospital Course Hospital Course: 58-year-old male who presented for elective outpatient runoff of lower extremities. Found to have significant disease in his common and internal iliacs. Underwent stenting of bilateral common and internal iliacs. Procedure tolerated well. Unable to Perclose or sutural femoral access. Required delayed removal of sheath. Will need monitoring overnight as he needs to lay flat and is at high risk of bleeding. Significant revascularization performed today. Discussed case with cardiology, request admission for monitoring overnight. I agreed to admit for inpatient care. Hemodynamically stable during admission. Monitored overnight. Hemoglobin remained stable with no active signs of bleeding. Cardiology reevaluated in the morning. Plan to continue Jardiance for diabetes. In regard to his PAD and CAD and hypertension, continue aspirin 81 mg daily, Lipitor 40 mg nightly, lisinopril 10 mg daily, Paxil 20 mg daily, Xarelto 2.5 mg twice daily, trazodone 150 mg nightly for sleep, and ursodiol 600 mg twice daily for cirrhosis. Of note, patient noted to have fissure on left foot. In light of his neuropathy and diabetes, will treat empirically for 5 days with Keflex due to some mild redness around crack and heel. Concern for maybe some early focal cellulitis. White count was normal on day of discharge however. Encouraged him to follow-up with PCP for further evaluation and monitoring. Picture taken and in chart. May need referral to podiatry for further management if pain or symptoms progress. Exam Data for Last 24 hours Vital signs and Labs for Last 24 Hours: Temp Pulse Resp BP Pulse Ox O2 Del Method 97.6 F 88 16 124/66 93 L Room Air 05/25/24 04:00 05/25/24 04:00 05/25/24 04:00 05/25/24 04:00 05/25/24 04:00 05/25/24 06:49 Laboratory Results - last 24 hr 05/24/24 11:06: WBC 7.5 D, RBC 5.31, Hgb 15.7, Hct 47.6, MCV 89.6, MCH 29.6, MCHC 33.0, RDW 14.6, Plt Count 181, MPV 9.3, Neut % (Auto) 64.7, Lymph % (Auto) 20.4, [place] % (Auto) 5.6, Eos % (Auto) 7.7, Baso % (Auto) 1.1, Neut # (Auto) 4.8, Lymph # (Auto) 1.5, [place] # (Auto) 0.4, Eos # (Auto) 0.6 H, Baso # (Auto) 0.1, Sodium 139, Potassium 4.5, Chloride 103, Carbon Dioxide 23, Anion Gap 17.5 H, BUN 18, Creatinine 0.70, Estimated Creat Clear 139, Estimated GFR 115, Est GFR ( Amer) 139, Glucose 191 H, Calcium 9.8 05/24/24 12:15: Activated Clotting Time 375 H* 05/24/24 13:24: Activated Clotting Time 287 H* D 05/24/24 14:04: Activated Clotting Time 167 H* D 05/24/24 19:53: POC Glucose 100 I & O for Last 24 hours: Intake & Output 05/22/24 05/23/24 05/24/24 05/25/24 23:59 23:59 23:59 23:59 Intake Total 960 / 960 Output Total 400 / 400 Balance 560 / 560 Weight 87.8 kg 192.8 kg Constitutional Constitutional: no acute distress and average body habitus *Routine HEENT Exam Head: Present normocephalic and atraumatic ENT: Present mucous membranes moist *Routine Neck Exam Neck: Present supple, full ROM and normal carotid upstroke; Absent JVD, carotid bruit or lymphadenopathy *Routine Respiratory Exam Respiratory: Present CTA bilaterally, normal respiratory effort, able to speak in complete sentences and symmetric chest movement; Absent rhonchi or wheezes *Routine Cardiovascular Exam Cardiovascular: Present RRR, Normal S1 and Normal S2; Absent murmur or gallop *Routine Abdominal Exam Abdominal: Present soft and normoactive bowel sounds; Absent tenderness, distended or organomegaly *Routine Rectal Exam Patient deferred: visual exam *Routine Exam Patient deferred: penile exam *Routine Extremities Exam Extremities: Present full ROM, pulses intact and normal capillary refill; Absent cyanosis, clubbing or edema *Routine Skin Exam Skin: Present intact, erythema (Left foot), dry (Significantly dry skin to the left foot), warm, wounds (Cracked skin lesion to the fissure of the left heel, significant dry skin, mild erythema) and cracked (Left foot, cracked skin at the fissure of the left) *Routine Neurological Exam Neurological: Present alert, oriented X3 and CN II-XII intact; Absent sensory deficit or motor deficit Routine Psychiatric Exam Psychiatric: Present normal affect Results Data Completed and Pending Labs on day of discharge: Labs from last 24 hours 05/24/24 05/24/24 05/24/24 19:53 14:04 13:24 WBC RBC Hgb Hct MCV MCH MCHC RDW Plt Count MPV Neut % (Auto) Lymph % (Auto) [place] % (Auto) Eos % (Auto) Baso % (Auto) Neut # (Auto) Lymph # (Auto) [place] # (Auto) Eos # (Auto) Baso # (Auto) Activated Clotting Time 167 H* D 287 H* D Sodium Potassium Chloride Carbon Dioxide Anion Gap BUN Creatinine Estimated Creat Clear Estimated GFR Est GFR ( Amer) Glucose POC Glucose 100 Calcium 05/24/24 05/24/24 12:15 11:06 WBC 7.5 D RBC 5.31 Hgb 15.7 Hct 47.6 MCV 89.6 MCH 29.6 MCHC 33.0 RDW 14.6 Plt Count 181 MPV 9.3 Neut % (Auto) 64.7 Lymph % (Auto) 20.4 [place] % (Auto) 5.6 Eos % (Auto) 7.7 Baso % (Auto) 1.1 Neut # (Auto) 4.8 Lymph # (Auto) 1.5 [place] # (Auto) 0.4 Eos # (Auto) 0.6 H Baso # (Auto) 0.1 Activated Clotting Time 375 H* Sodium 139 Potassium 4.5 Chloride 103 Carbon Dioxide 23 Anion Gap 17.5 H BUN 18 Creatinine 0.70 Estimated Creat Clear 139 Estimated GFR 115 Est GFR ( Amer) 139 Glucose 191 H POC Glucose Calcium 9.8 DS: Diagnosis Discharge Diagnosis (1) Claudication: Status: Acute Code(s): I73.9 - Peripheral vascular disease, unspecified (2) PAD (peripheral artery disease): Status: Chronic Code(s): I73.9 - Peripheral vascular disease, unspecified (3) Overweight (BMI 25.0-29.9): Status: Acute Code(s): E66.3 - Overweight (4) Diabetes mellitus with diabetic neuropathy: Status: Acute Code(s): E11.40 - Type 2 diabetes mellitus with diabetic neuropathy, unspecified Qualifiers: Diabetes mellitus terminal operations supervisor insulin use: without terminal operations supervisor use Diabetes mellitus type: type 2 Qualified Code(s): E11.40 - Type 2 diabetes mellitus with diabetic neuropathy, unspecified (5) CAD (coronary artery disease): Status: Chronic Code(s): I25.10 - Atherosclerotic heart disease of [place] coronary artery without angina pectoris Qualifiers: Associated angina: without angina Coronary Disease-Associated Artery/Lesion type: [place] artery [place] vs. transplanted heart: [place] heart Qualified Code(s): I25.10 - Atherosclerotic heart disease of [place] coronary artery without angina pectoris (6) HTN (hypertension): Status: Chronic Code(s): I10 - Essential (primary) hypertension Qualifiers: Hypertension type: essential hypertension Qualified Code(s): I10 - Essential (primary) hypertension (7) Hyperlipidemia: Status: Chronic Code(s): E78.5 - Hyperlipidemia, unspecified Qualifiers: Hyperlipidemia type: mixed hyperlipidemia Qualified Code(s): E78.2 - Mixed hyperlipidemia Meds Home Medications and Allergies Home Medications ?Medication ?Instructions ?Recorded ?Confirmed ?Type sildenafil 50 mg tablet 50 mg PO NEEDED PRN ERECTILE 07/23/19 05/24/24 History DYSFUNCTION atorvastatin 40 mg tablet 40 mg PO HS 07/31/19 05/24/24 History potassium chloride 20 mEq 20 meq PO BID 07/31/19 05/24/24 History tablet,extended release(part/cryst) pioglitazone 30 mg tablet (Actos) 30 mg PO DAILY 12/18/19 05/24/24 History paroxetine HCl 20 mg tablet 20 mg PO DAILY 03/18/20 05/24/24 History ursodiol 300 mg capsule 600 mg PO BID 03/18/20 05/24/24 History empagliflozin 25 mg tablet 25 mg PO DAILY 04/06/22 05/24/24 History (Jardiance) omeprazole 40 mg capsule,delayed 40 mg PO DAILY 12/01/22 05/24/24 History release budesonide 160 mcg-glycopyr 9 2 inh inhalation DAILY 05/22/24 05/24/24 History mcg-formot 4.8 mcg/actuation HFA inhaler (Breztri Aerosphere) lisinopril 10 mg tablet 10 mg PO DAILY 05/22/24 05/24/24 History albuterol sulfate 90 mcg/actuation 2 puff inhalation QIDP PRN 05/24/24 05/24/24 History aerosol inhaler Shortness Of Breath aspirin 81 mg tablet,delayed 81 mg PO DAILY 05/24/24 05/24/24 History release glipizide 5 mg tablet, extended 5 mg PO BID 05/24/24 05/24/24 History release 24 hr rivaroxaban 2.5 mg tablet (Xarelto) 2.5 mg PO BID 05/24/24 05/24/24 History trazodone 150 mg tablet 150 mg PO HS Insomnia 05/24/24 05/24/24 History cephalexin 500 mg capsule 500 mg PO Q8H 5 days #14 caps 05/25/24 Rx New Prescriptions to Start Prescriptions: Lenin Hooker Allergies Allergy/AdvReac Type Severity Reaction Status Date / Time morphine Allergy Intermediate Agitated Verified 05/22/24 11:17 Discharge Plan Disposition Patient Disposition: Home, Self-Care Condition: Fair Follow up Plan Follow up with: Annmarie Moran [Primary Care Provider] - 06/04/24 11:00 am Praful Nguyen PA [Physician Scenic Artist] - 05/29/24 2:15 pm Prescriptions/Medication Reconciliation: New cephalexin 500 mg Capsule 500 mg PO Q8H 5 Days Qty: 14 0RF Continued Jardiance 25 mg tablet 25 mg PO DAILY Patient Comments: TAKE 1 TABLET 1 TIME EACH DAY IN THE MORNING FOR DIABETES lisinopril 10 mg tablet 10 mg PO DAILY Patient Comments: TAKE ONE TABLET BY MOUTH EVERY DAY FOR BLOOD PRESSURE Breztri Aerosphere 160-9-4.8 mcg/actuation HFA aerosol inhaler 2 inh inhalation DAILY pioglitazone [Actos] 30 mg tablet 30 mg PO DAILY paroxetine HCl 20 mg tablet 20 mg PO DAILY ursodiol 300 mg capsule 600 mg PO BID Patient Comments: TAKE 2 CAPSULES 2 TIMES EACH DAY omeprazole 40 mg capsule,delayed release(DR/EC) 40 mg PO DAILY sildenafil 50 MG tablet 50 mg PO NEEDED PRN (Reason: ERECTILE DYSFUNCTION) atorvastatin 40 MG tablet 40 mg PO HS potassium chloride 20 MEQ tablet 20 meq PO BID glipizide 5 mg tablet extended release 24hr 5 mg PO BID Patient Comments: TAKE ONE TABLET BY MOUTH EVERY DAY FOR DIABETES albuterol sulfate 90 mcg/actuation HFA aerosol inhaler 2 puff INHALATION QIDP PRN (Reason: Shortness Of Breath) Patient Comments: INHALE TWO PUFFS BY MOUTH FOUR TIMES DAILY NEEDED aspirin 81 mg tablet,delayed release (DR/EC) 81 mg PO DAILY Xarelto 2.5 mg tablet 2.5 mg PO BID trazodone 150 mg tablet 150 mg PO HS Patient Comments: TAKE ONE TABLET BY MOUTH AT BEDTIME NEEDED for insomnia Other Ambulatory Orders: Complete Blood Count Auto Diff (Routine) Timeframe: 20240529 Facility: [facility] - Location: Laboratory Ordered By: Jasvir Storey Comprehensive Metabolic Panel (Routine) Timeframe: 20240529 Facility: [facility] - Location: Laboratory Ordered By: Jasvir Storey Problem Reconciliation Problems Reviewed?: Yes Patient Discharge Instructions ACTIVITY: Continue current activity DIET: continue same diet Patient Instructions: DI for Surgical Site Infection Print Language: [place] Providers Primary Care Provider: Annmarie Moran Admit Provider: Jasvir Storey Attending Provider: Lenin Watters
[2024-05-25 07:29] LABS: Hemoglobin 14.4 g/dL (14.1-18.0)
[2024-05-25 07:46] VITALS: BP 159/68; PULSE 83; RESP 18; TEMP 36.7; O2SAT 97
[2024-05-25 08:00] VITALS: PULSE 80
[2024-05-25] MEDS: ASPIRIN EC 81MG TABLET 81 MG PO (08:39)
[2024-05-25] MEDS: CLOPIDOGREL 75MG TAB 75 MG PO (08:39)
[2024-05-25] MEDS: EMPAGLIFLOZIN 25MG TABLET 25 MG PO (08:40)
[2024-05-25] MEDS: RIVAROXABAN 2.5MG TABLET 2.5 MG PO (08:40)
[2024-05-25] MEDS: LISINOPRIL 10MG TABLET 10 MG PO (08:40)
[2024-05-25] MEDS: PARoxetine 20MG TABLET 20 MG PO (08:40)
[2024-05-25] MEDS: POTASSIUM CHLORIDE 20MEQ TAB 20 MEQ PO (08:40)
[2024-05-25] MEDS: ursodioL 300 MG CAPSULE 600 MG PO (08:41)
--- NOTE | 2024-05-25 09:46 | XR_ITS ---
FINAL REPORT CLINICAL HISTORY: pain, evaluate for foreign body lateral side of heel FINDINGS: There is no acute fracture or dislocation. There are mild scattered degenerative changes. A moderate calcaneal spur is noted. No radiopaque foreign body is identified. IMPRESSION: No acute osseous abnormality or radiopaque foreign body. Reviewed, Interpreted and Dictated by Shyanne Thacker MD Transcribed by Cece Guy Authenticated and [facility]
[2024-05-25] MEDS: cephALEXin 500MG CAPSULE 500 MG PO (09:53)
--- NOTE | 2024-05-25 10:28 | P.CONCA_ITS ---
History of Present Illness History of Present Illness Consult date: 05/25/24 Requesting physician: Lenin Watters Consult reason: known to you Chief complaint: PAD s/p stenting History of present illness: This is a 58-year-old white gentleman who presented to the hospital for lower extremity runoff due to PAD. The patient was found to have bilateral disease in the common and external iliacs. He underwent stenting of the right and left common iliac arteries extending into the external arteries. He had 1 bare-metal stent placed on the right and 1 bare-metal stent placed on the left. The patient will need to be on Xarelto and aspirin for dual antiplatelet therapy. He has persistent SFA disease bilaterally with two-vessel runoff to the foot on the right and three-vessel runoff on the left. These vessels are felt to best be managed medically but would be amendable to shockwave lithotripsy and balloon coated angioplasty should his claudication be recalcitrant. The patient would benefit from PAD physical therapy at this time. This morning he denies any chest pain or pressure. He denies any shortness of breath or edema. He is complaining of pain in his left foot. He states that he has been in constant pain for about 2 weeks. He states that this is a sharp burning pain in the left foot. [facility] Disclaimer: The information contained in this section may have been updated after the patient was seen, as this information can be updated by other users. Medical History (Updated 05/25/24 @ 10:38 by Annika Mott APRN) Fissure in skin Pain in left foot Right shoulder pain Pulmonary nodules Claudication Weight loss Early satiety CAD (coronary artery disease) Dyspnea Neuropathy Hyperlipidemia Herniated intervertebral disc of lumbar spine Back Pain Herniated intervertebral disc of lumbar spine Surgical History S/P lumbar discectomy Social History Smoking Status: Current every day smoker tobacco type: cigarettes packs per day: 1 second hand exposure: Yes alcohol intake: former substance use type: marijuana current occupational status: disabled Travel in the last 8 weeks: Inside the [place] household members: spouse housing: house 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 current occupational exposures/hazards: No caffeine: Yes Have you lived/traveled outside [place] in past 30 days?: No Contact w/someone who lives/traveled outside [place] past 30 days?: No Exposure to someone with infectious disease in past 14 days?: No Do you have a fever (greater than 100.4 F or 38 C)?: No Have you tested positive for COVID-19: No Exposed to someone with COVID-19 in past 14 days?: No Do you have a sore throat?: No Do you have a cough?: No Do you have any weakness?: No Do you have any diarrhea?: No Are you experiencing any unusual bleeding?: No Do you have any muscle aches/pain?: No Do you have any abdominal pain?: No Are you experiencing loss of taste or smell?: No Review of Systems Review of Systems Review of systems:: pertinent systems reviewed and negative unless documented below Constitutional Constitutional: Reports system reviewed and no additional complaints, except as documented Eyes Eyes: Reports system reviewed and no additional complaints, except as documented ENT Ears, Nose, Mouth, and Throat: Reports system reviewed and no additional complaints, except as documented *Cardiovascular Cardiovascular: Reports system reviewed and no additional complaints, except as documented *Respiratory Respiratory: Reports system reviewed and no additional complaints, except as documented *Gastrointestinal Gastrointestinal: Reports system reviewed and no additional complaints, except as documented *Genitourinary Genitourinary: Reports system reviewed and no additional complaints, except as documented *Musculoskeletal Musculoskeletal: Reports system reviewed and no additional complaints, except as documented and Reports other (Left foot pain) Integumentary/Breasts Skin/Breast: Reports system reviewed and no additional complaints, except as documented, Reports dry skin (To the left foot) and Reports new lesions *Neurologic Neurologic: Reports system reviewed and no additional complaints, except as documented Psychiatric Psychiatric: Reports system reviewed and no additional complaints, except as documented Endocrine Endocrine: Reports system reviewed and no additional complaints, except as docu mented Hematologic/Lymphatic Hematologic/Lymphatic: Reports system reviewed and no additional complaints, except as documented Allergic/Immunologic Allergic/Immunologic: Reports system reviewed and no additional complaints, except as documented Exam Data for Last 24 hours Vital signs and Labs for Last 24 Hours: Temp Pulse Resp BP Pulse Ox O2 Del Method 98.0 F 83 18 159/68 H 97 Room Air 05/25/24 07:46 05/25/24 07:46 05/25/24 07:46 05/25/24 07:46 05/25/24 07:46 05/25/24 07:46 Laboratory Results - last 24 hr 05/24/24 11:06: WBC 7.5 D, RBC 5.31, Hgb 15.7, Hct 47.6, MCV 89.6, MCH 29.6, MCHC 33.0, RDW 14.6, Plt Count 181, MPV 9.3, Neut % (Auto) 64.7, Lymph % (Auto) 20.4, [place] % (Auto) 5.6, Eos % (Auto) 7.7, Baso % (Auto) 1.1, Neut # (Auto) 4.8, Lymph # (Auto) 1.5, [place] # (Auto) 0.4, Eos # (Auto) 0.6 H, Baso # (Auto) 0.1, Sodium 139, Potassium 4.5, Chloride 103, Carbon Dioxide 23, Anion Gap 17.5 H, BUN 18, Creatinine 0.70, Estimated Creat Clear 139, Estimated GFR 115, Est GFR ( Amer) 139, Glucose 191 H, Calcium 9.8 05/24/24 12:15: Activated Clotting Time 375 H* 05/24/24 13:24: Activated Clotting Time 287 H* D 05/24/24 14:04: Activated Clotting Time 167 H* D 05/24/24 19:53: POC Glucose 100 05/25/24 06:22: WBC 5.4 D, RBC 4.95, Hgb 14.4, Hct 44.6, MCV 90.1, MCH 28.5, MCHC 31.6 L, RDW 14.7, Plt Count 152, MPV 9.6, Neut % (Auto) 67.9, Lymph % (Auto) 16.0, [place] % (Auto) 8.1, Eos % (Auto) 7.0, Baso % (Auto) 0.6, Neut # (Auto) 3.7, Lymph # (Auto) 0.9, [place] # (Auto) 0.4, Eos # (Auto) 0.4, Baso # (Auto) 0.0, Sodium 138, Potassium 4.4, Chloride 104, Carbon Dioxide 26, Anion Gap 12.4, BUN 25 H D, Creatinine 1.00 D, Estimated Creat Clear 81, Estimated GFR 76, Est GFR ( Amer) 92 D, Glucose 217 H, Calcium 9.2 I & O for Last 24 hours: Intake & Output 05/22/24 05/23/24 05/24/24 05/25/24 23:59 23:59 23:59 23:59 Intake Total 960 / 960 640 / 640 Output Total 400 / 400 Balance 560 / 560 640 / 640 Weight 193 lb 9.054 oz 425 lb 0.819 oz Constitutional Constitutional: no acute distress and average body habitus *Routine HEENT Exam Head: Present normocephalic and atraumatic ENT: Present mucous membranes moist *Routine Neck Exam Neck: Present supple, full ROM and normal carotid upstroke; Absent JVD, carotid bruit or lymphadenopathy *Routine Respiratory Exam Respiratory: Present CTA bilaterally, normal respiratory effort, able to speak in complete sentences and symmetric chest movement *Routine Cardiovascular Exam Cardiovascular: Present RRR, Normal S1 and Normal S2; Absent murmur or gallop *Routine Abdominal Exam Abdominal: Present soft and normoactive bowel sounds; Absent tenderness, distended or organomegaly *Routine Extremities Exam Extremities: Present full ROM, pulses intact and normal capillary refill; Absent cyanosis, clubbing or edema *Routine Skin Exam Skin: Present intact, erythema (Left foot), dry (Significantly dry skin to the left foot), warm, wounds (Cracked skin lesion to the fissure of the left heel, significant dry skin, mild erythema) and cracked (Left foot, cracked skin at the fissure of the left) *Routine Neurological Exam Neurological: Present alert, oriented X3 and CN II-XII intact; Absent sensory deficit or motor deficit Routine Psychiatric Exam Psychiatric: Present normal affect Meds Home Medications and Allergies Home Medications ?Medication ?Instructions ?Recorded ?Confirmed ?Type sildenafil 50 mg tablet 50 mg PO NEEDED PRN ERECTILE 07/23/19 05/24/24 History DYSFUNCTION atorvastatin 40 mg tablet 40 mg PO HS 07/31/19 05/24/24 History potassium chloride 20 mEq 20 meq PO BID 07/31/19 05/24/24 History tablet,extended release(part/cryst) pioglitazone 30 mg tablet (Actos) 30 mg PO DAILY 12/18/19 05/24/24 History paroxetine HCl 20 mg tablet 20 mg PO DAILY 03/18/20 05/24/24 History ursodiol 300 mg capsule 600 mg PO BID 03/18/20 05/24/24 History empagliflozin 25 mg tablet 25 mg PO DAILY 04/06/22 05/24/24 History (Jardiance) omeprazole 40 mg capsule,delayed 40 mg PO DAILY 12/01/22 05/24/24 History release budesonide 160 mcg-glycopyr 9 2 inh inhalation DAILY 05/22/24 05/24/24 History mcg-formot 4.8 mcg/actuation HFA inhaler (Breztri Aerosphere) lisinopril 10 mg tablet 10 mg PO DAILY 05/22/24 05/24/24 History albuterol sulfate 90 mcg/actuation 2 puff inhalation QIDP PRN 05/24/24 05/24/24 History aerosol inhaler Shortness Of Breath aspirin 81 mg tablet,delayed 81 mg PO DAILY 05/24/24 05/24/24 History release glipizide 5 mg tablet, extended 5 mg PO BID 05/24/24 05/24/24 History release 24 hr rivaroxaban 2.5 mg tablet (Xarelto) 2.5 mg PO BID 05/24/24 05/24/24 History trazodone 150 mg tablet 150 mg PO HS Insomnia 05/24/24 05/24/24 History cephalexin 500 mg capsule 500 mg PO Q8H 5 days #14 caps 05/25/24 Rx New Prescriptions to Start Prescriptions: Lenin Hooker Allergies Allergy/AdvReac Type Severity Reaction Status Date / Time morphine Allergy Intermediate Agitated Verified 05/22/24 11:17 Assessment and Plan *Assessment and plan (1) Pain of left heel: Status: Acute Category: Medical Code(s): M79.672 - Pain in left foot (2) Fissure in skin: Status: Acute Category: Medical Code(s): R23.4 - Changes in skin texture (3) PAD (peripheral artery disease): Status: Chronic Category: Medical Code(s): I73.9 - Peripheral vascular disease, unspecified (4) CAD (coronary artery disease): Status: Chronic Qualifiers: Coronary Disease-Associated Artery/Lesion type: [place] artery [place] vs. transplanted heart: [place] heart Associated angina: without angina Qualified Code(s): I25.10 - Atherosclerotic heart disease of [place] coronary artery without angina pectoris Category: Medical Code(s): I25.10 - Atherosclerotic heart disease of [place] coronary artery without angina pectoris (5) HTN (hypertension): Status: Chronic Qualifiers: Hypertension type: essential hypertension Qualified Code(s): I10 - Essential (primary) hypertension Category: Medical Code(s): I10 - Essential (primary) hypertension (6) Hyperlipidemia: Status: Chronic Qualifiers: Hyperlipidemia type: mixed hyperlipidemia Qualified Code(s): E78.2 - Mixed hyperlipidemia Category: Medical Code(s): E78.5 - Hyperlipidemia, unspecified (7) Tobacco use: Status: Chronic Category: Social Hx Code(s): Z72.0 - Tobacco use (8) Diabetes: Status: Chronic Qualifiers: Diabetes mellitus type: type 2 Diabetes mellitus 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 The patient presented to the hospital for outpatient runoff and had stenting to the bilateral common iliac arteries extending into the external iliac arteries with 1 bare-metal stent each. The patient is going to be on Xarelto and aspirin for dual antiplatelet therapy. 2. The patient was kept overnight due to his complex procedure. His creatinine is stable this morning and normal. 3. He has persistent disease to the bilateral SFA. Medical management is recommended. Should he have recalcitrant claudication then we will consider lithotripsy and stenting to the bilateral SFA. 4. PAD physical therapy on an outpatient basis. 5. The patient is complaining of pain in his left foot. The patient does have a fissure in his skin that has some mild erythema noted. He is going to be started on oral antibiotics per the hospitalist. Prior to discharge today he will get an x-ray of the foot to make sure there is no foreign body in his foot. If antibiotics does not help to improve the fissure to his left heel then we will consider a podiatry referral on an outpatient basis. 6. The patient does have a history of CAD. He denies any chest pain or pressure. Continue aspirin. 7. His blood pressure is acceptable at this time. Continue lisinopril. 8. His LDL goal is less than 55. His LDL is 52. He is on a statin. 9. No further recommendations at this time from a cardiac standpoint. The patient can be discharged home today with follow-up in cardiology clinic in 1 to 2 weeks on an outpatient basis. 10. The patient will need to be discharged on the following cardiac medications: Aspirin 81 mg daily, atorvastatin 40 mg p.o. nightly, lisinopril 10 mg daily, omeprazole 40 mg daily, Xarelto 2.5 mg p.o. twice daily. Thank you for the opportunity to help participate in the care of this patient. All recommendations and orders are per Dr. Pa.
--- NOTE | 2024-05-28 12:13 | SW/DCPLANNER ---
Spoke with patient on the phone. Patient stated that he believes he is doing pretty good. Patient stated that he is aware of his upcoming appointments. Patient stated that his new medicine was brought to him on the day he was discharged. Patient stated that he has no concerns or questions at this time. Gurmeet Davis
== END 2024-05-25 11:18 | disposition home or self-care (01) ==
LOC: 2ND 14:30
PROVIDERS: Admitting Provider Internal Medicine; PCP Nurse Practitioner Family; Visit Provider Internal Medicine Adolescent Medicine
DX: I70.203 Unspecified atherosclerosis of native arteries of extremities, bilateral legs (principal); E11.51 Type 2 diabetes mellitus with diabetic peripheral angiopathy without gangrene; E11.40 Type 2 diabetes mellitus with diabetic neuropathy, unspecified; I25.10 Atherosclerotic heart disease of native coronary artery without angina pectoris; E78.5 Hyperlipidemia, unspecified; I10 Essential (primary) hypertension; E66.3 Overweight; M79.672 Pain in left foot; L85.3 Xerosis cutis; K74.60 Unspecified cirrhosis of liver; Z79.84 Long term (current) use of oral hypoglycemic drugs; Z79.82 Long term (current) use of aspirin; Z87.891 Personal history of nicotine dependence; Z79.01 Long term (current) use of anticoagulants; Z68.27 Body mass index [BMI] 27.0-27.9, adult
CPT/HCPCS: 36415; 37221; 73620; 75630; 80048; 82962; 85025; 85347; 99152; 99153; C1725; C1766; C1769; C1876; C1894; G0378; J1200; J1644; J2720; J3010; Q9966

== ENCOUNTER 2024-06-06 08:02 | Day surgery (SDC) | payer MEDICARE, MEDICAID, SELFPAY ==
[2024-06-06] VITALS (11 sets, daily range): BP systolic 138–187; BP diastolic 88–108; PULSE 63–82; RESP 16–20; O2SAT 96–98; BMI 28.3
--- NOTE | 2024-06-06 06:45 | IR_ITS ---
APPROVED REPORT Patient Location: Outpatient PROCEDURES Right radial arterial access Catheter placement in the right internal iliac artery Right internal iliac artery antegrade angiogram Catheter placement in the right external iliac artery Right external iliac artery antegrade angiogram Intravascular lithotripsy to the right internal iliac artery Bare-metal stent deployment to the ostial proximal midportion of the right internal iliac artery Bare-metal stent deployment to the right common iliac artery Angioplasty to the right external iliac artery INDICATION Gluteal claudication, Maurizio claudication class III-IV, Extensive calcification of the right internal iliac artery, Calcified peripheral artery disease of the right common right internal and right external iliac arteries Informed consent was obtained prior to the procedure. COMPLICATIONS none Estimated Blood Loss: less than 10ml TECHNIQUE 1% lidocaine used to anesthetize the right anterior aspect of the right wrist. The right radial artery was accessed via the central technique and an arterial cocktail using 5000U heparin, 2.5 mg verapamil, 1mg lidocaine and 800mcg nitroglycerin into the right radial sheath intra-arterially. A PV multi curve catheter was then placed into the right internal iliac artery and antegrade angiography was performed. This was repeated in the right external iliac artery. Following this a 117 cm hydrophilic sheath was advanced under fluoroscopic guidance from the right radial artery ending into the right common iliac artery. A total of 9 balloons were used to predilate the calcified stenosis within the internal iliac artery. A 3 mm x 20 mm noncompliant E[place] balloon was required to predilate just to get into the iliac artery. This was followed by 4 mm balloon and then eventually 5 mm ballooning. A 6 mm x 80 mm lithotripsy balloon was deployed for 200 pulsations at 5 emma of pressure to help reduce the calcified ostial stenosis. Two 8 x 40 self-expanding stents were placed in the mid internal iliac artery and overlapped. An additional 8 mm x 27 mm balloon mounted bare-metal stent was placed in the common iliac artery extending into the internal iliac artery and deployed at 17 emma. Wires were then placed through the side struts going into the external iliac artery and predilatation was made and ultimately an 8 mm x 40 mm balloon was used to dilate the external iliac artery. Wire was placed back into the internal iliac artery and an 8 mm balloon was used to further dilate the calcified ostial segment of the internal iliac artery. A total of 3 stents were used for the revascularization along with 9 different balloons for pre and post dilatation. At the end of the procedure the apparatus was removed the sheath was removed and hemostasis was achieved using TR banding patient was transferred to the postop putting in stable condition ANGIOGRAPHIC RESULTS Right common iliac artery is calcified and patent with a stent Right internal iliac artery is critically diseased with heavy calcified ostial stenosis creating a 90% stenosis and extending into the midportion Right external iliac artery is patent and extensively calcified with a stent producing no significant intraluminal stenosis IMPRESSION Critical disease in the right internal iliac artery Successful percutaneous revascularization of the right internal iliac artery critical disease reduced to 0% with 3 contiguous bare-metal stents, 2 self-expanding and 1 balloon mounted bare-metal stent Successful stenting of the right common iliac artery Successful angioplasty of the right external iliac artery PLAN 1. Dual antiplatelet therapy 2. Reassess patient in 1 to 2 weeks to determine if claudication and symptoms have improved. If improved, we will consider bringing patient back to the General [facility] and repeat procedure he involving the left internal iliac artery Electronically signed by : Jasvir Storey MD 06/07/2024 15:58:41
[2024-06-06 08:33] LABS: Basophils # 0.1 K/mm3 (0-0.2); Basophils % 1.1 % (0.1-2.0); Eosinophils # 0.4 K/mm3 (0.0-0.4); Eosinophils % 7.8 % (0.1-12.0); Hematocrit 46.9 % (42.0-52.0); Hemoglobin 15.2 g/dL (14.1-18.0); Lymphocytes % 19.2 % (10-50); Mean Corpuscular HGB Conc 32.4 g/dL (31.8-35.4); Mean Corpuscular Hemoglobin 29.2 pg (27.0-31.2); Mean Corpuscular Volume 90.2 fl (80-94); Mean Platelet Volume 9.3 fl (7.4-10.4); Monocytes # 0.3 K/mm3 (0.1-1.0); Monocytes % 5.9 % (1.7-9.3); Neutrophils # 3.5 K/mm3 (1.8-7.8); Neutrophils % 65.6 % (37.0-80.0); Nucleated Red Blood Cells # 0 10^3/uL; Nucleated Red Blood Cells % 0 %; Platelet Count 172 K/mm3 (142-424); Red Cell Distribution Width 14.5 % (11.5-17.5); Red Cell Distribution Width-SD 48.2 fL; White Blood Count 5.3 K/mm3 (4.8-10.8)
[2024-06-06 08:41] LABS: Chloride 103 mmol/L (98-107)
[2024-06-06 08:42] LABS: Potassium 4.5 mmoL/L (3.5-5.1); Sodium 141 mmol/L (136-145)
[2024-06-06 08:44] LABS: Blood Urea Nitrogen 15 mg/dl (9-20); Creatinine Clearance Estimated 142 mL/min (50-200); Estimated Glomerular Filt Rate 115 ml/min (>60); GFR (African American) 139 ML/MIN (>60)
[2024-06-06 08:45] LABS: Anion Gap 14.5 mEq/L (5-15); Calcium 9.1 mg/dl (8.4-10.2); Carbon Dioxide 28 mmol/L (22.0-30.0); Glucose 186 mg/dl (74-100)
[2024-06-06] MEDS: LIDOCAINE 1% 10ML MDV 10 ML IJ (10:50)
[2024-06-06] MEDS: HEPARIN 1,000 UNITS/ML 10ML VIAL (CATH LAB) 5000 UNIT IV (10:51)
[2024-06-06] MEDS: HEPARIN 1,000 UNITS/500ML NS (CATH LAB) 3000 UNIT IV (10:51)
[2024-06-06] MEDS: NITROGLYCERIN 800MCG/8ML SYR (CATH LAB) 800 MCG IA (10:51)
[2024-06-06] MEDS: VERAPAMIL 2.5MG/ML 2ML VIAL 2.5 MG IV (10:51)
[2024-06-06] MEDS: 0.9 % SODIUM CHLORIDE 500 ML 25 ML IV (10:52)
[2024-06-06] MEDS: diphenhydrAMINE 50MG/ML VIAL 50 MG IV (10:52)
[2024-06-06] MEDS: MIDAZOLAM HCL 1MG/ML 5ML VIAL 1 MG IV (11:44)
[2024-06-06] MEDS: FENTANYL 100MCG/2ML VIAL 50 MCG IV (11:44)
[2024-06-06] MEDS: PROPOFOL 10MG/ML 20ML VIAL 200 MG IV (13:48)
--- NOTE | 2024-06-06 14:21 | SUR.PHASEII ---
clinic pharmacy brought patients Plavix to bedside.
[2024-06-06] MEDS: IOHEXOL-240 100ML BOTTLE 210 ML IV (14:37)
[2024-06-06 14:50] LABS: CATHL Activated Clotting Time > 400 SEC (74-125)
[2024-06-06 14:51] LABS: CATHL Activated Clotting Time 244 SEC (74-125)
== END 2024-06-06 16:12 | disposition home or self-care (01) ==
PROVIDERS: PCP Nurse Practitioner Family; Visit Provider Internal Medicine
DX: I70.221 Atherosclerosis of native arteries of extremities with rest pain, right leg (principal); I73.9 Peripheral vascular disease, unspecified; I25.10 Atherosclerotic heart disease of native coronary artery without angina pectoris; I10 Essential (primary) hypertension; E78.5 Hyperlipidemia, unspecified; I77.1 Stricture of artery; Z79.01 Long term (current) use of anticoagulants; Z79.899 Other long term (current) drug therapy; F17.210 Nicotine dependence, cigarettes, uncomplicated; E11.40 Type 2 diabetes mellitus with diabetic neuropathy, unspecified; K70.30 Alcoholic cirrhosis of liver without ascites; M54.42 Lumbago with sciatica, left side; Z79.84 Long term (current) use of oral hypoglycemic drugs
CPT/HCPCS: 80048; 85025; 85347; 99152; 99153; C1725; C1769; C1876; C2623; C9765; J1200; J1644; J3010; Q9966

== ENCOUNTER 2024-06-13 13:57 | Outpatient (CLI) | payer MEDICARE, MEDICAID, SELFPAY ==
--- NOTE | 2024-06-13 14:15 | CA_ITS ---
FINAL REPORT CLINICAL HISTORY: PAIN,BRUISING RIGHT WRIST,PT HAD RLE RUNOFF/STENTING WITH RIGHT RADIAL ACCESS ON 05/24/24,PT ON PLAVIX AND ASA FINDINGS: Limited Spectral and Doppler waveform evaluation of the right wrist was performed. Spectral analysis was performed. There is no evidence of pseudoaneurysm, av fistula, or thrombus. IMPRESSION: Unremarkable exam. Reviewed, Interpreted and Dictated by Bushra Vidal MD Transcribed by Adriana Rivera Authenticated and [facility]
== END 2024-06-13 23:59 | disposition home or self-care (01) ==
LOC: RT 13:58
PROVIDERS: PCP Nurse Practitioner Family; Visit Provider Nurse Practitioner
DX: I25.10 Atherosclerotic heart disease of native coronary artery without angina pectoris (principal); M79.601 Pain in right arm; M79.89 Other specified soft tissue disorders; I10 Essential (primary) hypertension; S60.211A Contusion of right wrist, initial encounter; Z79.02 Long term (current) use of antithrombotics/antiplatelets; Z79.1 Long term (current) use of non-steroidal anti-inflammatories (NSAID); Z98.890 Other specified postprocedural states
CPT/HCPCS: 93931

== ENCOUNTER 2024-07-05 13:10 | Observation (INO) | payer MEDICARE, MEDICAID, SELFPAY ==
[2024-07-05] VITALS (54 sets, daily range): BP systolic 142–194; BP diastolic 75–104; PULSE 58–80; RESP 16–20; TEMP 36.1–36.7; O2SAT 93–98; BMI 28.7; BMI 27.8
[2024-07-05 08:06] LABS: Basophils # 0.1 K/mm3 (0-0.2); Basophils % 1.1 % (0.1-2.0); Eosinophils # 0.4 Kmm3 (0.0-0.4); Eosinophils % 8.1 % (0.1-12.0); Hematocrit 45.4 % (42.0-52.0); Hemoglobin 14.9 g/dL (14.1-18.0); Immature Granulocytes # 0.02 10^3uL; Immature Granulocytes % 0.4 %; Lymphocytes # 1.1 K/mm3 (0.7-4.5); Lymphocytes % 22.2 % (10-50); Mean Corpuscular HGB Conc 32.8 g/dL (31.8-35.4); Mean Corpuscular Hemoglobin 29.2 pg (27.0-31.2); Mean Platelet Volume 9.5 fl (7.4-10.4); Monocytes # 0.4 K/mm3 (0.1-1.0); Monocytes % 7.4 % (1.7-9.3); Neutrophils # 2.9 K/mm3 (1.8-7.8); Neutrophils % 60.8 % (37.0-80.0); Nucleated Red Blood Cells # 0 10^3/uL; Nucleated Red Blood Cells % 0 %; Platelet Count 162 K/mm3 (142-424); Red Cell Distribution Width 13.7 % (11.5-17.5); Red Cell Distribution Width-SD 45.1 fL; White Blood Count 4.7 K/mm3 (4.8-10.8)
[2024-07-05 08:18] LABS: Blood Urea Nitrogen 11 mg/dl (9-20); Carbon Dioxide 30 mmol/L (22.0-30.0); Chloride 102 mmol/L (98-107); Creatinine Clearance Estimated 126 mL/min (50-200); Estimated Glomerular Filt Rate 99 ml/min (>60); GFR (African American) 119 ML/MIN (>60); Glucose 261 mg/dl (74-100); Sodium 140 mmol/L (136-145)
[2024-07-05] MEDS: HEPARIN 1,000 UNITS/500ML NS (CATH LAB) 3000 UNIT IV (09:43)
[2024-07-05] MEDS: diphenhydrAMINE 50MG/ML VIAL 50 MG IV (09:43)
[2024-07-05] MEDS: 0.9 % SODIUM CHLORIDE 500 ML 25 ML IV (09:44)
[2024-07-05] MEDS: FENTANYL 100MCG/2ML VIAL 50 MCG IV (09:44)
[2024-07-05] MEDS: MIDAZOLAM HCL 1MG/ML 5ML VIAL 1 MG IV (09:44)
[2024-07-05] MEDS: LIDOCAINE 1% 10ML MDV 10 ML IJ (09:44)
[2024-07-05] MEDS: HEPARIN 1,000 UNITS/ML 10ML VIAL (CATH LAB) 5000 UNIT IV (10:29)
[2024-07-05] MEDS: PROPOFOL 10MG/ML 20ML VIAL 360 MG IV (10:33)
[2024-07-05] MEDS: CLOPIDOGREL 300MG TABLET 300 MG PO (10:47)
[2024-07-05] MEDS: PROTAMINE SULFATE 50MG/5ML VIAL (CATH LAB) 50 MG IV (10:51)
[2024-07-05] MEDS: LABETALOL 5MG/ML 20ML MDV 20 MG IV (11:15)
[2024-07-05] MEDS: IOPAMIDOL-370 (76%);100ML BOTTLE 125 ML IV (14:21)
[2024-07-05 14:23] LABS: CATHL Activated Clotting Time 320 SEC (74-125)
--- NOTE | 2024-07-05 14:31 | P.HP_ITS ---
History of Present Illness *Admission Date: 07/05/24 *Reason for visit:: PAD, status post common iliac stents *History of present illness: 58-year-old male with history of CAD, diabetes, PAD. Former smoker. Presented for elective lower extremity runoff due to peripheral artery disease. Found to have significant disease in his left internal iliac. Underwent lithotripsy and stenting today. Medicine was consulted due to delayed removal of sheath. Patient stable and in supine position at time of evaluation. On room air. Updated of plan. Patient with no complaints of pain at this time. Denies any shortness of breath or chest pain. Alert and oriented x 3 PFSH [facility] Disclaimer: The information contained in this section may have been updated after the patient was seen, as this information can be updated by other users. Medical History Pain of right upper extremity Swelling of right upper extremity Fissure in skin Pain in left foot Right shoulder pain Pulmonary nodules Claudication Weight loss Early satiety CAD (coronary artery disease) Dyspnea Neuropathy Hyperlipidemia Herniated intervertebral disc of lumbar spine Back Pain Herniated intervertebral disc of lumbar spine Surgical History History of cardiac cath S/P lumbar discectomy Social History Smoking Status: Current every day smoker tobacco type: cigarettes packs per day: 1 second hand exposure: Yes alcohol intake: former substance use type: marijuana current occupational status: disabled Travel in the last 8 weeks?: Inside the [place] household members: spouse housing: house 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 current occupational exposures/hazards: No caffeine: Yes Have you lived/traveled outside US in past 30 days?: No Contact w/someone who lives/traveled outside US past 30 days?: No Exposure to someone with infectious disease in past 14 days?: No Do you have a fever (greater than 100.4 F or 38 C)?: No Have you tested positive for COVID-19?: No Exposed to someone with COVID-19 in past 14 days?: No Do you have a sore throat?: No Do you have a cough?: No Do you have any weakness?: No Do you have any diarrhea?: No Are you experiencing any unusual bleeding?: No Do you have any muscle aches/pain?: No Do you have any abdominal pain?: No Are you experiencing loss of taste or smell?: No Other Medical History Have you received the Flu Vaccine for this season: Yes Have you received the Pneumonia Vaccine: Yes Review of Systems Review of Systems Review of systems (narrative): 14 point review of systems performed, pertinent positives and negatives as per HPI Meds Home Medications and Allergies Home Medications ?Medication ?Instructions ?Recorded ?Confirmed ?Type sildenafil 50 mg tablet 50 mg PO NEEDED PRN ERECTILE 07/23/19 07/05/24 History DYSFUNCTION atorvastatin 40 mg tablet 40 mg PO HS 07/31/19 07/05/24 History potassium chloride 20 mEq 20 meq PO BID 07/31/19 07/05/24 History tablet,extended release(part/cryst) pioglitazone 30 mg tablet (Actos) 30 mg PO DAILY 12/18/19 07/05/24 History paroxetine HCl 20 mg tablet 20 mg PO DAILY 03/18/20 07/05/24 History ursodiol 300 mg capsule 600 mg PO BID 03/18/20 07/05/24 History empagliflozin 25 mg tablet 25 mg PO DAILY 04/06/22 07/05/24 History (Jardiance) omeprazole 40 mg capsule,delayed 40 mg PO DAILY 12/01/22 07/05/24 History release lisinopril 10 mg tablet 10 mg PO DAILY 05/22/24 07/05/24 History albuterol sulfate 90 mcg/actuation 2 puff inhalation QIDP PRN 05/24/24 07/05/24 History aerosol inhaler Shortness Of Breath aspirin 81 mg tablet,delayed 81 mg PO DAILY 05/24/24 07/05/24 History release glipizide 5 mg tablet, extended 5 mg PO BID 05/24/24 07/05/24 History release 24 hr rivaroxaban 2.5 mg tablet (Xarelto) 2.5 mg PO BID 05/24/24 07/05/24 History trazodone 150 mg tablet 150 mg PO HSP PRN Insomnia 05/24/24 07/05/24 History clopidogrel 75 mg tablet (Plavix) 75 mg PO DAILY #30 tabs 06/06/24 07/05/24 Rx hydroxyzine HCl 25 mg tablet 25 mg PO TIDP PRN Anxiety 06/13/24 07/05/24 History New Prescriptions to Start Prescriptions: Allergies Allergy/AdvReac Type Severity Reaction Status Date / Time morphine Allergy Intermediate Agitated Verified 07/05/24 08:10 Exam Data for Last 24 hours Vital signs and Labs for Last 24 Hours: Temp Pulse Resp BP Pulse Ox O2 Del Method 98.1 F 67 18 172/101 H 96 Room Air 07/05/24 10:35 07/05/24 12:35 07/05/24 12:35 07/05/24 12:35 07/05/24 12:35 07/05/24 13:18 Laboratory Results - last 24 hr 07/05/24 08:00: WBC 4.7 L, RBC 5.10, Hgb 14.9, Hct 45.4, MCV 89.0, MCH 29.2, MCHC 32.8, RDW 13.7, Plt Count 162, MPV 9.5, Neut % (Auto) 60.8, Lymph % (Auto) 22.2, [place] % (Auto) 7.4, Eos % (Auto) 8.1, Baso % (Auto) 1.1, Neut # (Auto) 2.9, Lymph # (Auto) 1.1, [place] # (Auto) 0.4, Eos # (Auto) 0.4, Baso # (Auto) 0.1, Sodium 140, Potassium 4.0, Chloride 102, Carbon Dioxide 30, Anion Gap 12.0, BUN 11, Creatinine 0.80, Estimated Creat Clear 126, Estimated GFR 99, Est GFR ( Amer) 119, Glucose 261 H, Calcium 9.0 07/05/24 10:09: Activated Clotting Time 320 H* I & O for Last 24 hours: Intake & Output 07/02/24 07/03/24 07/04/24 07/05/24 23:59 23:59 23:59 23:59 Weight 88.054 kg Constitutional Constitutional: no acute distress, average body habitus and cooperative *Routine HEENT Exam Head: Present normocephalic Eye: Present EOMI and PERRL ENT: Present mucous membranes moist *Routine Neck Exam Neck: Present supple; Absent lymphadenopathy *Routine Respiratory Exam Respiratory: Present CTA bilaterally *Routine Cardiovascular Exam Cardiovascular: Present RRR *Routine Abdominal Exam Abdominal: Present soft and normoactive bowel sounds; Absent tenderness *Routine Rectal Exam Rectal:: deferred *Routine Genitalia Exam Genitalia:: deferred *Routine Extremities Exam Extremities: Absent cyanosis, clubbing or edema Comments: Weak pulses bilaterally in lower extremities; right femoral access site clean dry and intact. No significant hematoma. No active bleeding *Routine Skin Exam Skin: Present warm; Absent rash *Routine Neurological Exam Neurological: Present alert, oriented X3 and moving all extremities; Absent altered mental status Assessment and Plan *Assessment and plan (1) Claudication: Status: Acute Category: Medical Code(s): I73.9 - Peripheral vascular disease, unspecified (2) PAD (peripheral artery disease): Status: Chronic Category: Medical Code(s): I73.9 - Peripheral vascular disease, unspecified (3) Overweight (BMI 25.0-29.9): Status: Acute Category: Medical Code(s): E66.3 - Overweight (4) Diabetes mellitus with diabetic neuropathy: Status: Acute Qualifiers: Diabetes mellitus residential insulin use: without web user experience strategist use Diabetes mellitus type: type 2 Qualified Code(s): E11.40 - Type 2 diabetes mellitus with diabetic neuropathy, unspecified Category: Medical Code(s): E11.40 - Type 2 diabetes mellitus with diabetic neuropathy, unspecified (5) CAD (coronary artery disease): Status: Chronic Qualifiers: Associated angina: without angina Coronary Disease-Associated Artery/Lesion type: [place] artery [place] vs. transplanted heart: [place] heart Qualified Code(s): I25.10 - Atherosclerotic heart disease of [place] coronary artery without angina pectoris Category: Medical Code(s): I25.10 - Atherosclerotic heart disease of [place] coronary artery without angina pectoris (6) HTN (hypertension): Status: Chronic Qualifiers: Hypertension type: essential hypertension Qualified Code(s): I10 - Essential (primary) hypertension Category: Medical Code(s): I10 - Essential (primary) hypertension (7) Hyperlipidemia: Status: Chronic Qualifiers: Hyperlipidemia type: mixed hyperlipidemia Qualified Code(s): E78.2 - Mixed hyperlipidemia Category: Medical Code(s): E78.5 - Hyperlipidemia, unspecified Plan 58-year-old male who presented for elective lower extremity angiogram with lithotripsy and stenting of left internal iliac stenosis. Found to have significant disease in his left common and internal iliacs. Underwent lithotripsy and stenting left internal iliac artery. Procedure tolerated well. Unable to Perclose or sutural femoral access. Required delayed removal of sheath. Will need monitoring overnight as he needs to lay flat and is at high risk of bleeding. Significant revascularization performed today. Discussed case with cardiology, request admission for monitoring overnight. I agreed to admit for inpatient care. Hemodynamically stable at this time. Problems addressed as follows: PAD - Successful stenting of left internal iliac artery. - White count 4.7, hemoglobin 14.9. Kidney function normal with BUN 11, creatinine 0.8. Repeat CBC, CMP, magnesium ordered for the morning. - Resume home aspirin 81 mg daily, Lipitor 40 mg nightly, lisinopril 10 mg daily, Paxil 20 mg daily, Xarelto 2.5 mg twice daily - Cardiology consulted to evaluate in the morning. Anticipate discharge tomorrow if no further complications overnight. Stable on room air. - Dense calcification in the distal right common femoral artery partially obstructing the profunda femoris and right SFA - Refer patient to Dr. Dony Soliman at [facility] for right femoral artery endarterectomy - Tobacco cessation - LDL less than 55 achieved with high intensity statin trazodone 150 mg nightly for sleep Paxil 20 mg daily for depression ursodiol 600 mg twice daily for cirrhosis. Diabetes: - resume home medications for diabetes including Jardiance. Continue fingersticks ACHS with sliding scale insulin ACHS. Full code Diabetic diet
--- NOTE | 2024-07-05 15:49 | HMH.PHAINT1 ---
Pharmacy Intervention Comments: MEDICATION RECONCILIATION COMPLETED ON PATIENT USING EXTERNAL FILL HISTORY FROM PHARMACY. -REJI DUDLEY, JAMALD
[2024-07-05] MEDS: humaLOG 100 UNITS/ML 10ML VIAL (SSI) SUBCUT ×2 (16:39→21:53)
[2024-07-05 17:35] LABS: POC Glucose,Bedside 242 (70-110)
--- NOTE | 2024-07-05 17:59 | PC.NURSE ---
Pt is A&Ox4. Vital signs stable tolerating room air. Pt is s/p left iliac angioplasty. Right cath site with gauze and tegaderm c/d/i. Pt lying flat at this time and is able to stand at 1825. ACHS finger sticks treated per MAR. No complaints of pain. Family at bedside. No further needs voiced at this time. Call light within reach.
[2024-07-05 21:44] LABS: POC Glucose,Bedside 209 (70-110)
[2024-07-05] MEDS: TRAZODONE 50MG TABLET 150 MG PO (21:54)
[2024-07-05] MEDS: POTASSIUM CHLORIDE 20MEQ TAB 20 MEQ PO (21:54)
[2024-07-05] MEDS: PANTOPRAZOLE 40MG TABLET 40 MG PO (21:54)
[2024-07-05] MEDS: RIVAROXABAN 2.5MG TABLET 2.5 MG PO (21:54)
[2024-07-05] MEDS: ATORVASTATIN 40MG TABLET 40 MG PO (21:54)
[2024-07-05] MEDS: ursodioL 300 MG CAPSULE 600 MG PO (21:54)
[2024-07-06] VITALS: BP 135/68; PULSE 74; PULSE 80; RESP 16; TEMP 37; O2SAT 97
[2024-07-06 04:00] VITALS: BP 153/72; PULSE 60; PULSE 71; RESP 16; TEMP 36.1; O2SAT 96; BMI 28.3
--- NOTE | 2024-07-06 05:48 | PC.NURSE ---
v/s, ox4. No acute events to report. Drainage monitored at cath site. Plan of care ongoing.
[2024-07-06 06:22] LABS: POC Glucose,Bedside 197 (70-110)
[2024-07-06] MEDS: humaLOG 100 UNITS/ML 10ML VIAL (SSI) SUBCUT (06:41)
[2024-07-06 06:49] LABS: Basophils # 0.1 K/mm3 (0-0.2); Eosinophils # 0.3 Kmm3 (0.0-0.4); Eosinophils % 6.6 % (0.1-12.0); Hematocrit 38.8 % (42.0-52.0); Immature Granulocytes # 0.01 10^3uL; Immature Granulocytes % 0.2 %; Lymphocytes % 20.1 % (10-50); Mean Corpuscular HGB Conc 33.2 g/dL (31.8-35.4); Mean Corpuscular Hemoglobin 29.4 pg (27.0-31.2); Mean Corpuscular Volume 88.4 fl (80-94); Mean Platelet Volume 9.8 fl (7.4-10.4); Monocytes # 0.4 K/mm3 (0.1-1.0); Monocytes % 7.7 % (1.7-9.3); Neutrophils # 3.3 K/mm3 (1.8-7.8); Neutrophils % 64.4 % (37.0-80.0); Nucleated Red Blood Cells # 0 10^3/uL; Nucleated Red Blood Cells % 0 %; Platelet Count 141 K/mm3 (142-424); Red Blood Count 4.39 M/mm3 (4.60-6.20); Red Cell Distribution Width 13.8 % (11.5-17.5); Red Cell Distribution Width-SD 44.7 fL; White Blood Count 5.2 K/mm3 (4.8-10.8)
[2024-07-06 07:03] LABS: Blood Urea Nitrogen 15 mg/dl (9-20); Calcium 8.6 mg/dl (8.4-10.2); Carbon Dioxide 25 mmol/L (22.0-30.0); Chloride 105 mmol/L (98-107); Creatinine Clearance Estimated 125 mL/min (50-200); Estimated Glomerular Filt Rate 99 ml/min (>60); GFR (African American) 119 ML/MIN (>60); Glucose 165 mg/dl (74-100); Sodium 136 mmol/L (136-145)
[2024-07-06 07:06] LABS: Hemoglobin 12.9 g/dL (14.1-18.0)
--- NOTE | 2024-07-06 07:44 | EXP.DC.SUM ---
General Admission date:: 07/05/24 Discharge date: 07/06/24 HPI HPI HPI: 58-year-old male with history of CAD, diabetes, PAD. Former smoker. Presented for elective lower extremity runoff due to peripheral artery disease. Found to have significant disease in his left internal iliac. Underwent lithotripsy and stenting today. Medicine was consulted due to delayed removal of sheath. Patient stable and in supine position at time of evaluation. On room air. Updated of plan. Patient with no complaints of pain at this time. Denies any shortness of breath or chest pain. Alert and oriented x 3 Hospital Course Hospital Course Hospital Course: 58-year-old male who presented for elective lower extremity angiogram with lithotripsy and stenting of left internal iliac stenosis. Found to have significant disease in his left common and internal iliacs. Underwent lithotripsy and stenting left internal iliac artery. Procedure tolerated well. Unable to Perclose or sutural femoral access. Required delayed removal of sheath. Will need monitoring overnight as he needs to lay flat and is at high risk of bleeding. Significant revascularization performed on day of admission. Monitored overnight. Did well with no bleeding events. Stable to discharge home. Problems addressed as follows: PAD - Successful stenting of left internal iliac artery. Labs normal at time of admission with white count of 4, hemoglobin of 14. Received gentle hydration overnight. Labs remained stable on morning of discharge. Kidney function at baseline. Resume home aspirin 81 mg daily, Lipitor 40 mg nightly, lisinopril 10 mg daily, Paxil 20 mg daily, Xarelto 2.5 mg twice daily. Dense calcification in the distal right common femoral artery partially obstructing the profunda femoris and right SFA. Cardiology to refer patient to Dr. Dony Soliman at [facility] for right femoral artery endarterectomy. Tobacco cessation. LDL less than 55 achieved with high intensity statin trazodone 150 mg nightly for sleep Paxil 20 mg daily for depression ursodiol 600 mg twice daily for cirrhosis. Diabetes: - resume home medications for diabetes including Jardiance. Continue fingersticks ACHS with sliding scale insulin ACHS. Exam Data for Last 24 hours Vital signs and Labs for Last 24 Hours: Temp Pulse Resp BP Pulse Ox O2 Del Method 97 F L 71 16 153/72 H 96 Room Air 07/06/24 04:00 07/06/24 04:00 07/06/24 04:00 07/06/24 04:00 07/06/24 04:00 07/06/24 06:19 Laboratory Results - last 24 hr 07/05/24 08:00: WBC 4.7 L, RBC 5.10, Hgb 14.9, Hct 45.4, MCV 89.0, MCH 29.2, MCHC 32.8, RDW 13.7, Plt Count 162, MPV 9.5, Neut % (Auto) 60.8, Lymph % (Auto) 22.2, [place] % (Auto) 7.4, Eos % (Auto) 8.1, Baso % (Auto) 1.1, Neut # (Auto) 2.9, Lymph # (Auto) 1.1, [place] # (Auto) 0.4, Eos # (Auto) 0.4, Baso # (Auto) 0.1, Sodium 140, Potassium 4.0, Chloride 102, Carbon Dioxide 30, Anion Gap 12.0, BUN 11, Creatinine 0.80, Estimated Creat Clear 126, Estimated GFR 99, Est GFR ( Amer) 119, Glucose 261 H, Calcium 9.0 07/05/24 10:09: Activated Clotting Time 320 H* 07/05/24 16:34: POC Glucose 242 H 07/05/24 21:33: POC Glucose 209 H 07/06/24 05:38: WBC 5.2, RBC 4.39 L, Hgb 12.9 L D, Hct 38.8 L, MCV 88.4, MCH 29.4, MCHC 33.2, RDW 13.8, Plt Count 141 L, MPV 9.8, Neut % (Auto) 64.4, Lymph % (Auto) 20.1, [place] % (Auto) 7.7, Eos % (Auto) 6.6, Baso % (Auto) 1.0, Neut # (Auto) 3.3, Lymph # (Auto) 1.0, [place] # (Auto) 0.4, Eos # (Auto) 0.3, Baso # (Auto) 0.1, Sodium 136, Potassium 4.0, Chloride 105, Carbon Dioxide 25, Anion Gap 10.0, BUN 15 D, Creatinine 0.80, Estimated Creat Clear 125, Estimated GFR 99, Est GFR ( Amer) 119, Glucose 165 H D, Calcium 8.6 07/06/24 06:13: POC Glucose 197 H I & O for Last 24 hours: Intake & Output 07/03/24 07/04/24 07/05/24 07/06/24 23:59 23:59 23:59 23:59 Intake Total 360 / 480 120 / 120 Output Total 750 / 750 0 / 0 Balance -390 / -270 120 / 120 Weight 88.054 kg 89.902 kg Constitutional Constitutional: no acute distress and average body habitus *Routine HEENT Exam Head: Present normocephalic and atraumatic ENT: Present mucous membranes moist *Routine Neck Exam Neck: Present supple, full ROM and normal carotid upstroke; Absent JVD, carotid bruit or lymphadenopathy *Routine Respiratory Exam Respiratory: Present CTA bilaterally, normal respiratory effort, able to speak in complete sentences and symmetric chest movement; Absent rhonchi or wheezes *Routine Cardiovascular Exam Cardiovascular: Present RRR, Normal S1 and Normal S2; Absent murmur or gallop *Routine Abdominal Exam Abdominal: Present soft and normoactive bowel sounds; Absent tenderness, distended or organomegaly *Routine Rectal Exam Patient deferred: visual exam *Routine Exam Patient deferred: penile exam *Routine Extremities Exam Extremities: Present full ROM, pulses intact and normal capillary refill; Absent cyanosis, clubbing or edema *Routine Skin Exam Skin: Present intact, erythema (Left foot), dry (Significantly dry skin to the left foot), warm, wounds (Cracked skin lesion to the fissure of the left heel, significant dry skin, mild erythema) and cracked (Left foot, cracked skin at the fissure of the left) *Routine Neurological Exam Neurological: Present alert, oriented X3 and CN II-XII intact; Absent sensory deficit or motor deficit Routine Psychiatric Exam Psychiatric: Present normal affect Results Data Completed and Pending Labs on day of discharge: Labs from last 24 hours 07/06/24 07/06/24 07/05/24 06:13 05:38 21:33 WBC 5.2 RBC 4.39 L Hgb 12.9 L D Hct 38.8 L MCV 88.4 MCH 29.4 MCHC 33.2 RDW 13.8 Plt Count 141 L MPV 9.8 Neut % (Auto) 64.4 Lymph % (Auto) 20.1 [place] % (Auto) 7.7 Eos % (Auto) 6.6 Baso % (Auto) 1.0 Neut # (Auto) 3.3 Lymph # (Auto) 1.0 [place] # (Auto) 0.4 Eos # (Auto) 0.3 Baso # (Auto) 0.1 Activated Clotting Time Sodium 136 Potassium 4.0 Chloride 105 Carbon Dioxide 25 Anion Gap 10.0 BUN 15 D Creatinine 0.80 Estimated Creat Clear 125 Estimated GFR 99 Est GFR ( Amer) 119 Glucose 165 H D POC Glucose 197 H 209 H Calcium 8.6 07/05/24 07/05/24 07/05/24 16:34 10:09 08:00 WBC 4.7 L RBC 5.10 Hgb 14.9 Hct 45.4 MCV 89.0 MCH 29.2 MCHC 32.8 RDW 13.7 Plt Count 162 MPV 9.5 Neut % (Auto) 60.8 Lymph % (Auto) 22.2 [place] % (Auto) 7.4 Eos % (Auto) 8.1 Baso % (Auto) 1.1 Neut # (Auto) 2.9 Lymph # (Auto) 1.1 [place] # (Auto) 0.4 Eos # (Auto) 0.4 Baso # (Auto) 0.1 Activated Clotting Time 320 H* Sodium 140 Potassium 4.0 Chloride 102 Carbon Dioxide 30 Anion Gap 12.0 BUN 11 Creatinine 0.80 Estimated Creat Clear 126 Estimated GFR 99 Est GFR ( Amer) 119 Glucose 261 H POC Glucose 242 H Calcium 9.0 DS: Diagnosis Discharge Diagnosis (1) Claudication: Status: Acute Code(s): I73.9 - Peripheral vascular disease, unspecified (2) PAD (peripheral artery disease): Status: Chronic Code(s): I73.9 - Peripheral vascular disease, unspecified (3) Overweight (BMI 25.0-29.9): Status: Acute Code(s): E66.3 - Overweight (4) Diabetes mellitus with diabetic neuropathy: Status: Acute Code(s): E11.40 - Type 2 diabetes mellitus with diabetic neuropathy, unspecified Qualifiers: Diabetes mellitus senior care insulin use: without senior care use Diabetes mellitus type: type 2 Qualified Code(s): E11.40 - Type 2 diabetes mellitus with diabetic neuropathy, unspecified (5) CAD (coronary artery disease): Status: Chronic Code(s): I25.10 - Atherosclerotic heart disease of [place] coronary artery without angina pectoris Qualifiers: Associated angina: without angina Coronary Disease-Associated Artery/Lesion type: [place] artery [place] vs. transplanted heart: [place] heart Qualified Code(s): I25.10 - Atherosclerotic heart disease of [place] coronary artery without angina pectoris (6) HTN (hypertension): Status: Chronic Code(s): I10 - Essential (primary) hypertension Qualifiers: Hypertension type: essential hypertension Qualified Code(s): I10 - Essential (primary) hypertension (7) Hyperlipidemia: Status: Chronic Code(s): E78.5 - Hyperlipidemia, unspecified Qualifiers: Hyperlipidemia type: mixed hyperlipidemia Qualified Code(s): E78.2 - Mixed hyperlipidemia Meds Home Medications and Allergies Home Medications ?Medication ?Instructions ?Recorded ?Confirmed ?Type sildenafil 50 mg tablet 50 mg PO NEEDED PRN ERECTILE 07/23/19 07/05/24 History DYSFUNCTION atorvastatin 40 mg tablet 40 mg PO HS 07/31/19 07/05/24 History potassium chloride 20 mEq 20 meq PO BID 07/31/19 07/05/24 History tablet,extended release(part/cryst) pioglitazone 30 mg tablet (Actos) 30 mg PO DAILY 12/18/19 07/05/24 History paroxetine HCl 20 mg tablet 20 mg PO DAILY 03/18/20 07/05/24 History ursodiol 300 mg capsule 600 mg PO BID 03/18/20 07/05/24 History empagliflozin 25 mg tablet 25 mg PO DAILY 04/06/22 07/05/24 History (Jardiance) omeprazole 40 mg capsule,delayed 40 mg PO DAILY 12/01/22 07/05/24 History release lisinopril 10 mg tablet 10 mg PO DAILY 05/22/24 07/05/24 History albuterol sulfate 90 mcg/actuation 2 puff inhalation QIDP PRN 05/24/24 07/05/24 History aerosol inhaler Shortness Of Breath aspirin 81 mg tablet,delayed 81 mg PO DAILY 05/24/24 07/05/24 History release glipizide 5 mg tablet, extended 5 mg PO BID 05/24/24 07/05/24 History release 24 hr rivaroxaban 2.5 mg tablet (Xarelto) 2.5 mg PO BID 05/24/24 07/05/24 History trazodone 150 mg tablet 150 mg PO HSP PRN Insomnia 05/24/24 07/05/24 History clopidogrel 75 mg tablet (Plavix) 75 mg PO DAILY #30 tabs 06/06/24 07/05/24 Rx hydroxyzine HCl 25 mg tablet 25 mg PO TIDP PRN Anxiety 06/13/24 07/05/24 History New Prescriptions to Start Prescriptions: Allergies Allergy/AdvReac Type Severity Reaction Status Date / Time morphine Allergy Intermediate Agitated Verified 07/05/24 08:10 Discharge Plan Disposition Patient Disposition: Home, Self-Care Condition: Fair Follow up Plan Follow up with: Annmarie Moran [Primary Care Provider] - 07/13/24 1:00 pm Jasvir Storey MD [Staff Physician] - 07/12/24 11:15 am Prescriptions/Medication Reconciliation: Continued Jardiance 25 mg tablet 25 mg PO DAILY Patient Comments: TAKE 1 TABLET 1 TIME EACH DAY IN THE MORNING FOR DIABETES lisinopril 10 mg tablet 10 mg PO DAILY Patient Comments: TAKE ONE TABLET BY MOUTH EVERY DAY FOR BLOOD PRESSURE hydroxyzine HCl 25 mg tablet 25 mg PO TIDP PRN (Reason: Anxiety) Patient Comments: TAKE ONE TABLET BY MOUTH THREE TIMES DAILY NEEDED FOR FOR ITCHING pioglitazone [Actos] 30 mg tablet 30 mg PO DAILY paroxetine HCl 20 mg tablet 20 mg PO DAILY ursodiol 300 mg capsule 600 mg PO BID Patient Comments: TAKE 2 CAPSULES 2 TIMES EACH DAY omeprazole 40 mg capsule,delayed release(DR/EC) 40 mg PO DAILY sildenafil 50 MG tablet 50 mg PO NEEDED PRN (Reason: ERECTILE DYSFUNCTION) atorvastatin 40 MG tablet 40 mg PO HS potassium chloride 20 MEQ tablet 20 meq PO BID glipizide 5 mg tablet extended release 24hr 5 mg PO BID Patient Comments: TAKE ONE TABLET BY MOUTH EVERY DAY FOR DIABETES albuterol sulfate 90 mcg/actuation HFA aerosol inhaler 2 puff INHALATION QIDP PRN (Reason: Shortness Of Breath) Patient Comments: INHALE TWO PUFFS BY MOUTH FOUR TIMES DAILY NEEDED aspirin 81 mg tablet,delayed release (DR/EC) 81 mg PO DAILY rivaroxaban [Xarelto] 2.5 mg tablet 2.5 mg PO BID trazodone 150 mg tablet 150 mg PO HSP PRN (Reason: Insomnia) Patient Comments: TAKE ONE TABLET BY MOUTH AT BEDTIME NEEDED for insomnia clopidogrel [Plavix] 75 mg Tablet 75 mg PO DAILY Qty: 30 3RF Problem Reconciliation Problems Reviewed?: Yes Patient Discharge Instructions ACTIVITY: Continue current activity DIET: continue same diet Patient Instructions: DI for Peripheral Vascular (Arterial) Disease, DI for Surgical Site Infection, DI for Moderate Sedation Print Language: Filipino Providers Primary Care Provider: Annmarie Moran Admit Provider: Jasvir Storey Attending Provider: Lenin Watters
[2024-07-06 08:00] VITALS: BP 142/69; PULSE 70; PULSE 74; RESP 16; TEMP 36.6; O2SAT 100
[2024-07-06] MEDS: POTASSIUM CHLORIDE 20MEQ TAB 20 MEQ PO (08:35)
[2024-07-06] MEDS: EMPAGLIFLOZIN 25MG TABLET 25 MG PO (08:35)
[2024-07-06] MEDS: PARoxetine 20MG TABLET 20 MG PO (08:35)
[2024-07-06] MEDS: CLOPIDOGREL 75MG TAB 75 MG PO (08:35)
[2024-07-06] MEDS: ursodioL 300 MG CAPSULE 600 MG PO (08:35)
[2024-07-06] MEDS: RIVAROXABAN 2.5MG TABLET 2.5 MG PO (08:35)
[2024-07-06] MEDS: ASPIRIN EC 81MG TABLET 81 MG PO (08:35)
[2024-07-06] MEDS: LISINOPRIL 10MG TABLET 10 MG PO (08:35)
--- NOTE | 2024-07-09 11:12 | SW/DCPLANNER ---
Spoke with patient on the phone. Patient stated that he is doing good just his legs are still bothering him. Patient stated that he is aware of his upcoming appointments. Patient stated that he has no concerns or questions at this time. Patient stated that he has no concerns or questions. Gurmeet Davis
== END 2024-07-06 10:00 | disposition home or self-care (01) ==
LOC: 2ND 13:11
PROVIDERS: Admitting Provider Internal Medicine; PCP Nurse Practitioner Family; Visit Provider Internal Medicine Adolescent Medicine
DX: I25.10 Atherosclerotic heart disease of native coronary artery without angina pectoris (principal); I70.203 Unspecified atherosclerosis of native arteries of extremities, bilateral legs; I77.1 Stricture of artery; I10 Essential (primary) hypertension; E11.40 Type 2 diabetes mellitus with diabetic neuropathy, unspecified; F17.210 Nicotine dependence, cigarettes, uncomplicated; K70.30 Alcoholic cirrhosis of liver without ascites; Z79.899 Other long term (current) drug therapy; Z79.02 Long term (current) use of antithrombotics/antiplatelets; Z79.82 Long term (current) use of aspirin; Z79.84 Long term (current) use of oral hypoglycemic drugs; Z79.01 Long term (current) use of anticoagulants; Z88.5 Allergy status to narcotic agent; I73.9 Peripheral vascular disease, unspecified
CPT/HCPCS: 36415; 80048; 82962; 85025; 85347; 99152; 99153; C1725; C1766; C1769; C1894; C2623; C9765; G0378; J1200; J1644; J1920; J2720; J3010; Q9967

== ENCOUNTER 2024-07-10 11:17 | Outpatient (CLI) | payer MEDICARE, MEDICAID, SELFPAY ==
[2024-07-10 11:56] LABS: Basophils # 0.1 K/mm3 (0-0.2); Basophils % 1.6 % (0.1-2.0); Eosinophils # 0.3 Kmm3 (0.0-0.4); Eosinophils % 6.7 % (0.1-12.0); Hematocrit 43.8 % (42.0-52.0); Hemoglobin 14.1 g/dL (14.1-18.0); Immature Granulocytes # 0.02 10^3uL; Immature Granulocytes % 0.5 %; Lymphocytes # 0.9 K/mm3 (0.7-4.5); Lymphocytes % 21.3 % (10-50); Mean Corpuscular HGB Conc 32.2 g/dL (31.8-35.4); Mean Corpuscular Hemoglobin 28.6 pg (27.0-31.2); Mean Corpuscular Volume 88.8 fl (80-94); Mean Platelet Volume 9.3 fl (7.4-10.4); Monocytes # 0.3 K/mm3 (0.1-1.0); Monocytes % 7.6 % (1.7-9.3); Neutrophils # 2.7 K/mm3 (1.8-7.8); Neutrophils % 62.3 % (37.0-80.0); Nucleated Red Blood Cells # 0 10^3/uL; Nucleated Red Blood Cells % 0 %; Platelet Count 177 K/mm3 (142-424); Red Blood Count 4.93 M/mm3 (4.60-6.20); Red Cell Distribution Width 13.9 % (11.5-17.5); Red Cell Distribution Width-SD 44.9 fL; White Blood Count 4.4 K/mm3 (4.8-10.8)
[2024-07-10 12:00] LABS: Ammonia < 9 umol/L (9-30)
[2024-07-10 12:20] LABS: INR 1.03 (0.9-1.1); Prothrombin Time 11.4 seconds (10.1-12.5)
[2024-07-10 12:41] LABS: 25-OH Vitamin D, Total 23.1 ng/mL (30-100)
[2024-07-10 13:28] LABS: Albumin Level 4.4 g/dl (3.5-5.0); Chloride 103 mmol/L (98-107); Potassium 4.5 mmoL/L (3.5-5.1); Sodium 137 mmol/L (136-145)
[2024-07-10 13:31] LABS: Alanine Aminotransferase 39 U/L (12-78); Albumin/Globulin Ratio 1.3 (1.1-1.8); Alkaline Phosphatase 301 U/L (38-126); Anion Gap 15.5 mEq/L (5-15); Aspartate Amino Transferase 39 U/L (17-59); Bilirubin,Total 0.5 mg/dl (0.2-1.3); Blood Urea Nitrogen 15 mg/dl (9-20); Calcium 9.2 mg/dl (8.4-10.2); Carbon Dioxide 23 mmol/L (22.0-30.0); Estimated Glomerular Filt Rate 68 ml/min (>60); GFR (African American) 83 ML/MIN (>60); Globulin 3.4 g/dL (1.3-3.2); Iron 95 ug/dL (49-181); Total Protein,Serum 7.8 g/dl (6.3-8.2)
[2024-07-10 13:34] LABS: Glucose 537 mg/dl (74-100)
[2024-07-10 13:40] LABS: Total Iron Binding Capacity 428 ug/dL (261-462)
[2024-07-11 13:11] LABS: AFP, Tumor Marker <1.8 ng/mL (0.0-8.4)
[2024-07-16 12:22] LABS: Vitamin A 42.8 ug/dL (22.0-69.5)
== END 2024-07-10 23:59 | disposition home or self-care (01) ==
LOC: LAB 11:18
PROVIDERS: PCP Nurse Practitioner Family; Visit Provider Nurse Practitioner Family
DX: K70.30 Alcoholic cirrhosis of liver without ascites (principal); E55.9 Vitamin D deficiency, unspecified
CPT/HCPCS: 80053; 82105; 82140; 82306; 82728; 83540; 83550; 84590; 85025; 85610

== ENCOUNTER 2024-07-12 09:20 | Outpatient (CLI) | payer MEDICARE, MEDICAID, SELFPAY ==
--- NOTE | 2024-07-12 09:30 | US_ITS ---
FINAL REPORT TECHNIQUE: Multiple transverse and longitudinal scans were performed of the right upper quadrant of the abdomen. CLINICAL HISTORY: Cirrhosis follow-up 6 month COMPARISON: 12/26/2023 FINDINGS: HEPATIC ULTRASOUND The liver has a coarsened echotexture with a mildly nodular contour compatible with cirrhosis. There is no focal mass identified. The portal vein is patent with normal directional flow. The gallbladder shows borderline wall thickening similar to prior exam. This can be seen with chronic liver disease. There are no gallstones. There is no biliary ductal dilatation. IMPRESSION: Cirrhosis without evidence of ascites or hepatic mass. Reviewed, Interpreted and Dictated by Shyanne Thacker MD Transcribed by Lora Martin Authenticated and [facility]
== END 2024-07-12 23:59 | disposition home or self-care (01) ==
LOC: RAD 09:21
PROVIDERS: PCP Nurse Practitioner Family; Visit Provider Nurse Practitioner Family
DX: K70.30 Alcoholic cirrhosis of liver without ascites (principal)
CPT/HCPCS: 76705

== ENCOUNTER 2025-01-29 07:42 | Outpatient (CLI) | payer MEDICARE, MEDICAID, SELFPAY ==
--- OUTSIDE RECORDS SUMMARY | 2024-12-04 10:30 | XMS_ITS | Encounter Summary ---
[facility] Address [address] [place] [address] Care Team Providers Care First Aid Instructor Name Role Phone Oscar Chan APRN Primary Care Provider + [phone] Reason for Referral * MRI/CAT/PET Scan (Emergency) - Closed Specialty Diagnoses / Procedures [facility] Referred To Contact Radiology Diagnoses NSCLC of right lung Procedures CT Chest With Contrast Diagnostic Luis Mills MD [address] [address] Phone: tel: fax: [address] [phone] Phone: tel: Referral ID Status Reason Start Date Expiration Date Visits Re quested Visits Authorized Closed 08/28/2024 11/27/2025 1 1 * MRI/CAT/PET Scan (Emergency) - Closed Specialty Diagnoses / Procedures [facility] Referred To Contact Radiology Diagnoses NSCLC of right lung Procedures CT Abdomen Pelvis With Contrast Luis Mills MD [address] [address] Phone: tel: fax: [address] [phone] Phone: tel: Referral ID Status Reason Start Date Expiration Date Visits Re quested Visits Authorized Closed 08/28/2024 11/27/2025 1 1 Reason for Visit * MRI/CAT/PET Scan (Emergency) - Closed Specialty Diagnoses / Procedures Referred By [facility] Referred To Contact Radiology Diagnoses NSCLC of right lung Procedures CT Chest With Contrast Diagnostic Luis Mills MD [address] [address] Phone: tel: fax: [facility] [address] [place] [address] Phone: tel: Referral ID Status Reason Start Date Expiration Date Visits Re quested Visits Authorized Closed 08/28/2024 11/27/2025 1 1 Encounter Details Date Type Department Care Team (Late st Contact Info) Description 12/04/2024 11:30 AM EDT - 12/04/2024 11:59 PM EDT Hospital Encounter [facility] CT AT [address] [place] [address] Luis Mills MD [address] [address] NSCLC of right lung Discharge Disposition: Home or Self Care Social History Tobacco Use Types Packs/Day Years Used Date Smoking Tobacco: Former Cigarettes 1.5 30.2 1 994 - 03/17/2024 Cigars Smokeless Tobacco: Never Comments:6-7 cigarettes per day as of 03/06/24. Patient reports quitting 3 days ago (03/17/24) Alcohol Use Standard Drinks/Week Comments Not Currently 0 (1 standard drink = 0.6 oz pure alcohol) stopped 09/03/2019, Hx of 30 beers/day [facility] Utilities Answer Date Recorded In the past 12 months has [employer], gas, oil, or water [place] threatened to shut off services in your home? Yes 03/27/2024 AUDIT-C Answer Date Recorded Q1: How often do you have a drink containing alcohol? Never 03/27/2024 Q2: How many drinks containi ng alcohol do you have on a typical day when you are drinking? Patient does not drink Q3: How often do you have si x or more drinks on one occasion? Never 03/27/2024 Overall Financial Resource Strain (CARDIA) Answe r Date Recorded How hard is it for you to pa y for the very basics like food, housing, medical care, and heating? Not very hard 03/27/2024 [facility] - Occupational Stress Questionnaire Answer Date Recorded Do you feel stress - tense, restless, nervous, or anxious, or unable to sleep at night because your mind is troubled all the time - these days? Only a little 03/27/2024 Exercise Vital Sign Answer Date Recorde d On average, how many days pe r week do you engage in moderate to strenuous exercise (like a brisk walk)? 0 days 03/27/2024 On average, how many minutes do you engage in exercise at this level? 0 min 03/27/2024 Hunger Vital Sign Answer Date Recorded Within the past 12 months, y ou worried that your food would run out before you got the money to buy more. Sometimes true Within the past 12 months, t he food you bought just didn't last and you didn't have money to get more. Never true 05/2024 PRAPARE - Transportation Answer Date Re corded In the past 12 months, has l ack of transportation kept you from medical appointments or from getting medications? No 05/2024 In the past 12 months, has l ack of transportation kept you from meetings, work, or from getting things needed for daily living? No 03/27/2024 Abuse Screen Answer Date Recorded Feels Unsafe at Home or Work/School no 03/27/2024 Feels Threatened by Someone no 05/2024 Does Anyone Try to Keep You From Having Contact with Others or Doing Things Outside Your Home? no 03/27/2024 Physical Signs of Abuse Present Not on file 03/27/2024 Housing Stability Answer Date Recorded Current Living Arrangements home 05/2024 Potentially Unsafe Housing Conditions none 03/27/2024 Family and Community Support Answer Hitesh e Recorded If for any reason you need h elp with day-to-day activities such as bathing, preparing meals, shopping, managing finances, etc., do you get the help you need? I don't need any help 03/27/2024 How often do you feel lonely or isolated from those around you? Never 03/27/2024 Employment Answer Date Recorded Do you want help finding or keeping work or a job? I do not need or want help 03/27/2024 Disabilities Answer Date Recorded Difficulty Concentrating, Remembering or Making Decisions yes 03/27/2024 Difficulty Managing Errands Independently no 03/27/2024 Education Answer Date Recorded Do you want help with school or training? 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 CHOLECALCIFEROL PO Take by mouth Daily. cilostazol (PLETAL) 50 MG tablet Take 1 tablet by mouth 2 (Two) Times a Day. 09/01/2024 clopidogrel (PLAVIX) 75 MG tablet Take 1 tablet by mouth Daily. escitalopram (LEXAPRO) 10 MG tablet Take 1 tablet by mouth Daily. 09/10/2024 hydrOXYzine (ATARAX) 25 MG tablet Take 1 tablet by mouth Every 4 (Four) Hours As Needed for Itching. 09/17/2024 insulin glargine (LANTUS, SEMGLEE) 100 UNIT/ML injection Inject 20 Units under the skin into the appropriate area as directed Every Night. Jardiance 25 MG tablet tablet Take 1 tablet by mouth Daily. 12/12/2023 lamoTRIgine (LaMICtal) 25 MG tablet Take 2 tablets by mouth 2 (Two) Times a Day. Lipitor 40 MG tablet Take 1 tablet by mouth Every Night. lisinopril (PRINIVIL,ZESTRI L) 10 MG tablet Take 1 tablet by mouth Daily. 10/25/2023 omeprazole (priLOSEC) 40 MG capsule Take 1 capsule by mouth Daily. 04/09/2024 pioglitazone (ACTOS) 30 MG tablet Take 1 tablet by mouth Daily. potassium chloride (KLOR-CON M20) 20 MEQ CR tablet Take 1 tablet by mouth 2 (Two) Times a Day. sildenafil (VIAGRA) 50 MG tablet Take 1 tablet by mouth Daily As Needed for Erectile Dysfunction. ursodiol (ACTIGALL) 300 MG capsule Take 2 capsules by mouth Every 12 (Twelve) Hours. 09/10/2024 Xarelto 2.5 MG tablet Take 1 tablet by mouth 2 (Two) Times a Day. Patient instructed to hold prior to surgery. Last dose due 03/22/24 01/04/2024 documented as of this encounter Plan of Treatment Upcoming Encounters Date Type Department Care Team (Late st Contact Info) Description 06/04/2025 11:30 AM EDT Appointment [facility] CT AT [address] [place] [id number] 06/04/2025 1:15 PM EDT Office Visit [facility] [address] [facility] [address] [place] [phone] Luis Mills MD [address] [facility] [address] [place] [address] documented as of this encounter Procedures Procedure Name Priority Date/Time Associated Diagnosis Comments CT ABDOMEN PELVIS W CONTRAST STAT 12/04/2024 11:51 AM EDT NSCLC of right lung CT CHEST W CONTRAST STAT 12/04/2024 1 1:51 AM EDT NSCLC of right lung documented in this encounter Results * CT Chest With Contrast Diagnostic (12/04/2024 11:51 AM EDT) Anatomical Region Laterality Modality Chest N/A Computed Tomogra phy 12/04/2024 1:32 PM EDT Impressions 12/04/2024 1:47 PM EDT Impression: 1.Postsurgical changes of right lower lobectomy. No evidence of new or progressive disease in the chest. 2.Similar-appearing mildly enlarged mediastinal and right hilar lymph nodes. 3.Unchanged trace right pleural effusion with pleural thickening. 4.No evidence of metastatic disease in the abdomen/pelvis. 5.Hepatic cirrhosis. Electronically Signed: Artem Haque MD 12/04/2024 1:47 PM EDT Workstation ID: [id number] Narrative 12/04/2024 1:[address] CHEST W CONTRAST DIAGNOSTIC, CT ABDOMEN PELVIS W CONTRAST Date of Exam: 12/04/2024 11:40 AM EDT Indication: NSCLC. Comparison: Chest and abdomen/pelvis CT 08/28/2024. CTA runoff 08/30/2024. Technique: Axial CT images were obtained of the chest, abdomen, pelvis after the uneventful intravenous administration of iodinated contrast. Reconstructed coronal and sagittal images were also obtained. Automated exposure control and iterative construction methods were used. Findings: CHEST: Thyroid and thoracic inlet: No significant abnormality. Lymph nodes: Similar-appearing enlarged right paratracheal node measuring up to 1 cm in short axis. Similar-appearing enlarged right hilar nodes measuring up to 12 mm in short axis. 9 mm AP window lymph node appears unchanged. Calcified mediastinal and hilar nodes, likely sequelae of prior granulomatous disease. Cardiovascular: Normal appearing heart size. No pericardial effusion. Aorta and main pulmonary artery diameters are within normal range.. There are coronary artery calcifications. Aortic atherosclerosis. Esophagus: No significant abnormality. Lung parenchyma: Emphysema. Right lower lobectomy. Unchanged soft tissue posterior to the right lower lobe bronchial stump on series 2, image 55, likely postsurgical change. Nodular opacity along the suture line at the posterior right upper lobe on series 4, image 39, unchanged and likely scarring. No new suspicious appearing opacities. Scattered atelectasis. Airways: Patent trachea and mainstem bronchi. Mild secretions in the right mainstem bronchus. Mild bronchial wall thickening which can be seen in bronchitis and/or large airways disease. Mild mucous plugging in the left lower lobe. Pleura: Unchanged trace right pleural effusion with pleural thickening. No left pleural effusion or pneumothorax. Chest wall and osseous structures: Degenerative changes of the imaged spine. No acute osseous abnormality.. No suspicious appearing lytic or sclerotic lesions. ABDOMEN/PELVIS: Liver: Cirrhotic hepatic morphology. Gallbladder and biliary tree: No significant abnormality. Spleen: Calcified granulomas. Pancreas: No significant abnormality. Adrenal glands: No significant abnormality. Kidneys and ureters: No significant abnormality. Stomach and duodenum:No significant abnormality. Small and large bowel: Partial colectomy. Colonic diverticulosis. No evidence of bowel obstruction. Normal-appearing appendix. No significant pericolonic inflammatory changes seen. Peritoneal cavity: No free fluid or free air. Bladder: Under distended and incompletely evaluated. Pelvic organs: No significant abnormality. Vasculature: Atherosclerotic calcifications.. Bilateral common iliac, external iliac, and right internal iliac stents. Lymph nodes: No pathologic appearing lymph nodes by imaging criteria. Bones and soft tissues: Degenerative changes of the imaged spine. Moderate to severe stenosis at L4-5. No acute osseous abnormality. No suspicious appearing lytic or sclerotic lesion. Procedure Note Artem Haque MD - 12/04/2024 CT CHEST W CONTRAST DIAGNOSTIC, CT ABDOMEN PELVIS W CONTRAST Date of Exam: 12/04/2024 11:40 AM EDT Indication: NSCLC. Comparison: Chest and abdomen/pelvis CT 08/28/2024. CTA runoff 08/30/2024. Technique: Axial CT images were obtained of the chest, abdomen, pelvisafter the uneventful intravenous administration of iodinated contrast.Reconstructed coronal and sagittal images were also obtained. Automatedexposure control and iterative construction methods were used. Findings: CHEST: Thyroid and thoracic inlet: No significant abnormality. Lymph nodes: Similar-appearing enlarged right paratracheal node measuringup to 1 cm in short axis. Similar-appearing enlarged right hilar nodesmeasuring up to 12 mm in short axis. 9 mm AP window lymph node appearsunchanged. Calcified mediastinal and hilar nodes, likely sequelae of prior granulomatous disease. Cardiovascular: Normal appearing heart size. No pericardial effusion.Aorta and main pulmonary artery diameters are within normal range.. Thereare coronary artery calcifications. Aortic atherosclerosis. Esophagus: No significant abnormality. Lung parenchyma: Emphysema. Right lower lobectomy. Unchanged soft tissueposterior to the right lower lobe bronchial stump on series 2, image 55,likely postsurgical change. Nodular opacity along the suture line at theposterior right upper lobe on series 4, image 39, unchanged and likely scarring. No new suspiciousappearing opacities. Scattered atelectasis. Airways: Patent trachea and mainstem bronchi. Mild secretions in the right mainstem bronchus. Mild bronchial wallthickening which can be seen in bronchitis and/or large airways disease.Mild mucous plugging in the left lower lobe. Pleura: Unchanged trace right pleural effusion with pleural thickening. Noleft pleural effusion or pneumothorax. Chest wall and osseous structures: Degenerative changes of the imagedspine. No acute osseous abnormality.. No suspicious appearing lytic orsclerotic lesions. ABDOMEN/PELVIS: Liver: Cirrhotic hepatic morphology. Gallbladder and biliary tree: No significant abnormality. Spleen: Calcified granulomas. Pancreas: No significant abnormality. Adrenal glands: No significant abnormality. Kidneys and ureters: No significant abnormality. Stomach and duodenum:No significant abnormality. Small and large bowel: Partial colectomy. Colonic diverticulosis. Noevidence of bowel obstruction. Normal-appearing appendix. No significantpericolonic inflammatory changes seen. Peritoneal cavity: No free fluid or free air. Bladder: Under distended and incompletely evaluated. Pelvic organs: No significant abnormality. Vasculature: Atherosclerotic calcifications.. Bilateral common iliac,external iliac, and right internal iliac stents. Lymph nodes: No pathologic appearing lymph nodes by imaging criteria. Bones and soft tissues: Degenerative changes of the imaged spine. Moderateto severe stenosis at L4-5. No acute osseous abnormality. No suspiciousappearing lytic or sclerotic lesion. IMPRESSION: Impression: 1.Postsurgical changes of right lower lobectomy. No evidence of new orprogressive disease in the chest. 2.Similar-appearing mildly enlarged mediastinal and right hilar lymphnodes. 3.Unchanged trace right pleural effusion with pleural thickening. 4.No evidence of metastatic disease in the abdomen/pelvis. 5.Hepatic cirrhosis. Electronically Signed: Artem Haque MD 12/04/2024 1:47 PM EDT Workstation ID: [id number] us Luis Mills MD IMG CT ORDERABLES Final Resu lt * CT Abdomen Pelvis With Contrast (12/04/2024 11:51 AM EDT) Anatomical Region Laterality Modality Abdomen, Pelvis N/A Computed Tomogra phy 12/04/2024 1:32 PM EDT Impressions 12/04/2024 1:47 PM EDT Impression: 1.Postsurgical changes of right lower lobectomy. No evidence of new or progressive disease in the chest. 2.Similar-appearing mildly enlarged mediastinal and right hilar lymph nodes. 3.Unchanged trace right pleural effusion with pleural thickening. 4.No evidence of metastatic disease in the abdomen/pelvis. 5.Hepatic cirrhosis. Electronically Signed: Artem Haque MD 12/04/2024 1:47 PM EDT Workstation ID: [id number] Narrative 12/04/2024 1:[address] CHEST W CONTRAST DIAGNOSTIC, CT ABDOMEN PELVIS W CONTRAST Date of Exam: 12/04/2024 11:40 AM EDT Indication: NSCLC. Comparison: Chest and abdomen/pelvis CT 08/28/2024. CTA runoff 08/30/2024. Technique: Axial CT images were obtained of the chest, abdomen, pelvis after the uneventful intravenous administration of iodinated contrast. Reconstructed coronal and sagittal images were also obtained. Automated exposure control and iterative construction methods were used. Findings: CHEST: Thyroid and thoracic inlet: No significant abnormality. Lymph nodes: Similar-appearing enlarged right paratracheal node measuring up to 1 cm in short axis. Similar-appearing enlarged right hilar nodes measuring up to 12 mm in short axis. 9 mm AP window lymph node appears unchanged. Calcified mediastinal and hilar nodes, likely sequelae of prior granulomatous disease. Cardiovascular: Normal appearing heart size. No pericardial effusion. Aorta and main pulmonary artery diameters are within normal range.. There are coronary artery calcifications. Aortic atherosclerosis. Esophagus: No significant abnormality. Lung parenchyma: Emphysema. Right lower lobectomy. Unchanged soft tissue posterior to the right lower lobe bronchial stump on series 2, image 55, likely postsurgical change. Nodular opacity along the suture line at the posterior right upper lobe on series 4, image 39, unchanged and likely scarring. No new suspicious appearing opacities. Scattered atelectasis. Airways: Patent trachea and mainstem bronchi. Mild secretions in the right mainstem bronchus. Mild bronchial wall thickening which can be seen in bronchitis and/or large airways disease. Mild mucous plugging in the left lower lobe. Pleura: Unchanged trace right pleural effusion with pleural thickening. No left pleural effusion or pneumothorax. Chest wall and osseous structures: Degenerative changes of the imaged spine. No acute osseous abnormality.. No suspicious appearing lytic or sclerotic lesions. ABDOMEN/PELVIS: Liver: Cirrhotic hepatic morphology. Gallbladder and biliary tree: No significant abnormality. Spleen: Calcified granulomas. Pancreas: No significant abnormality. Adrenal glands: No significant abnormality. Kidneys and ureters: No significant abnormality. Stomach and duodenum:No significant abnormality. Small and large bowel: Partial colectomy. Colonic diverticulosis. No evidence of bowel obstruction. Normal-appearing appendix. No significant pericolonic inflammatory changes seen. Peritoneal cavity: No free fluid or free air. Bladder: Under distended and incompletely evaluated. Pelvic organs: No significant abnormality. Vasculature: Atherosclerotic calcifications.. Bilateral common iliac, external iliac, and right internal iliac stents. Lymph nodes: No pathologic appearing lymph nodes by imaging criteria. Bones and soft tissues: Degenerative changes of the imaged spine. Moderate to severe stenosis at L4-5. No acute osseous abnormality. No suspicious appearing lytic or sclerotic lesion. Procedure Note Artem Haque MD - 12/04/2024 CT CHEST W CONTRAST DIAGNOSTIC, CT ABDOMEN PELVIS W CONTRAST Date of Exam: 12/04/2024 11:40 AM EDT Indication: NSCLC. Comparison: Chest and abdomen/pelvis CT 08/28/2024. CTA runoff 08/30/2024. Technique: Axial CT images were obtained of the chest, abdomen, pelvisafter the uneventful intravenous administration of iodinated contrast.Reconstructed coronal and sagittal images were also obtained. Automatedexposure control and iterative construction methods were used. Findings: CHEST: Thyroid and thoracic inlet: No significant abnormality. Lymph nodes: Similar-appearing enlarged right paratracheal node measuringup to 1 cm in short axis. Similar-appearing enlarged right hilar nodesmeasuring up to 12 mm in short axis. 9 mm AP window lymph node appearsunchanged. Calcified mediastinal and hilar nodes, likely sequelae of prior granulomatous disease. Cardiovascular: Normal appearing heart size. No pericardial effusion.Aorta and main pulmonary artery diameters are within normal range.. Thereare coronary artery calcifications. Aortic atherosclerosis. Esophagus: No significant abnormality. Lung parenchyma: Emphysema. Right lower lobectomy. Unchanged soft tissueposterior to the right lower lobe bronchial stump on series 2, image 55,likely postsurgical change. Nodular opacity along the suture line at theposterior right upper lobe on series 4, image 39, unchanged and likely scarring. No new suspiciousappearing opacities. Scattered atelectasis. Airways: Patent trachea and mainstem bronchi. Mild secretions in the right mainstem bronchus. Mild bronchial wallthickening which can be seen in bronchitis and/or large airways disease.Mild mucous plugging in the left lower lobe. Pleura: Unchanged trace right pleural effusion with pleural thickening. Noleft pleural effusion or pneumothorax. Chest wall and osseous structures: Degenerative changes of the imagedspine. No acute osseous abnormality.. No suspicious appearing lytic orsclerotic lesions. ABDOMEN/PELVIS: Liver: Cirrhotic hepatic morphology. Gallbladder and biliary tree: No significant abnormality. Spleen: Calcified granulomas. Pancreas: No significant abnormality. Adrenal glands: No significant abnormality. Kidneys and ureters: No significant abnormality. Stomach and duodenum:No significant abnormality. Small and large bowel: Partial colectomy. Colonic diverticulosis. Noevidence of bowel obstruction. Normal-appearing appendix. No significantpericolonic inflammatory changes seen. Peritoneal cavity: No free fluid or free air. Bladder: Under distended and incompletely evaluated. Pelvic organs: No significant abnormality. Vasculature: Atherosclerotic calcifications.. Bilateral common iliac,external iliac, and right internal iliac stents. Lymph nodes: No pathologic appearing lymph nodes by imaging criteria. Bones and soft tissues: Degenerative changes of the imaged spine. Moderateto severe stenosis at L4-5. No acute osseous abnormality. No suspiciousappearing lytic or sclerotic lesion. IMPRESSION: Impression: 1.Postsurgical changes of right lower lobectomy. No evidence of new orprogressive disease in the chest. 2.Similar-appearing mildly enlarged mediastinal and right hilar lymphnodes. 3.Unchanged trace right pleural effusion with pleural thickening. 4.No evidence of metastatic disease in the abdomen/pelvis. 5.Hepatic cirrhosis. Electronically Signed: Artem Haque MD 12/04/2024 1:47 PM EDT Workstation ID: [id number] us Luis Mills MD IMG CT ORDERABLES Final Resu lt documented in this encounter Visit Diagnoses Diagnosis NSCLC of right lung documented in this encounter Administered Medications Inactive Administered Medications - up to 3 most recent administrations Medication Order MAR Action Action Date Dose Rate Site iopamidol (ISOVUE-300) 61 % injection 80 mL 80 mL, Intravenous, Once in Imaging, On Tue12/04/24 at 1142, For 1 dose Given 12/04/2024 11:52 AM EDT 80 mL documented in this encounter Care Teams First Aid Instructor Relationship Specialty Start Date End Date Oscar Chan APRN [address] [place] [address] [place] [id number] PCP - General Family Medicine 12/04/24 documented as of this encounter
--- OUTSIDE RECORDS SUMMARY | 2024-12-04 12:15 | XMS_ITS | Encounter Summary ---
[facility] Address [address] [place] [address] Care Team Providers Care Technical Specialist Name Role Phone Oscar Chan APRN Primary Care Provider + [phone] Reason for Referral * MRI/CAT/PET Scan (Routine) - Pending Review Specialty Diagnoses / Procedures [facility] Referred To Contact Radiology Diagnoses NSCLC of right lung Procedures CT Chest With Contrast Diagnostic [facility] [address] [address] Phone: tel: fax: [address] [phone] Phone: tel: Referral ID Status Reason Start Date Expiration Date V isits Requested Visits Authorized [id number] Pending Review 12/04/2024 03/05/2026 1 1 * MRI/CAT/PET Scan (Routine) - Pending Review Specialty Diagnoses / Procedures [facility] Referred To Contact Radiology Diagnoses NSCLC of right lung Procedures CT Abdomen Pelvis With Contrast Luis Mills MD [address] [address] Phone: tel: fax: [address] [phone] Phone: tel: Referral ID Status Reason Start Date Expiration Date V isits Requested Visits Authorized [id number] Pending Review 12/04/2024 03/05/2026 1 1 Encounter Details Date Type Department Care Team (Late st Contact Info) Description 12/04/2024 1:15 PM EDT Office Visit [facility] HEMATOLOGY & ONCOLOGY [address] [facility] [place] [address] Luis Mills MD [address] [facility] [facility] [address] [place] [address] NSCLC of right lung (Primary Dx) Social History Tobacco Use Types Packs/Day Years Used Date Smoking Tobacco: Former Cigarettes 1.5 30.2 1 994 - 03/17/2024 Cigars Smokeless Tobacco: Never Comments:6-7 cigarettes per day as of 03/06/24. Patient reports quitting 3 days ago (03/17/24) Alcohol Use Standard Drinks/Week Comments Not Currently 0 (1 standard drink = 0.6 oz pure alcohol) stopped 09/03/2019, Hx of 30 beers/day [facility] Utilities Answer Date Recorded In the past 12 months has e [employer], gas, oil, or water [employer] threatened to shut off services in your [...] care, and heating? 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 Not on file Not on file Not on file documented as of this encounter Last Filed Vital Signs Vital Sign Reading Time Taken Comments Blood Pressure 102/68 12/04/2024 1:05 PM EDT Pulse 74 12/04/2024 1:05 PM EDT Temperature 36.4 C (97.5 F) 12/04/2024 1:05 PM EDT Respiratory Rate 18 12/04/2024 1:05 PM EDT Oxygen Saturation 96% 12/04/2024 1:05 PM EDT Inhaled Oxygen Concentration - - Weight 87.6 kg (193 lb 3.2 oz) 12/04/2024 1:05 P M EDT Height 177.8 cm (5' 10 ) 12/04/2024 1:05 PM EDT Body Mass Index 27.72 12/04/2024 1:05 PM EDT documented in this encounter Progress Notes * Luis Mills MD - 12/04/2024 1:15 PM EDT Images from the original note were not included. Follow Up Office Visit Date: 12/04/2024 Patient Name: Maddie Mcgill : 1965 Referring Physician: Radha Alicea Chief Complaint: Follow-up for right lung NSCLC-squamous cell carcinoma History of Present Illness: Maddie Mcgill is a pleasant 58 y.o. male past medical history of tobacco abuse, type 2 diabetes, hypertension, hyperlipidemia who presents today for evaluation of right lung NSCLC. The patient is accompanied by their who contributes to the history of their care. The patient had an enlarging right lung nodule noted on CT scan. He underwent a PET/CT which showed hypermetabolic activity within the lesion. MRI brain without evidence of disease. He underwent a bronchoscopy with Dr. Alicea with biopsy consistent with a squamous cell carcinoma. He was then seen by CT surgery and is scheduled for surgical intervention on 03/26. He denies any new chest pain or discomfort. Denies any significant shortness of breath or cough. Notes that he quit smoking about 3-4 days ago Interval History: Presents to clinic for follow-up. Underwent a right robotic laparoscopic lower lobectomy with Dr. Morillo on 03/26/2024. Continues to do well. Denies any new pain or discomfort. Denies any worsening shortness of breath or cough Oncology History: Oncology/Hematology History No problem history exists. Subjective Review of Systems: Constitutional: Negative for fevers, chills, or weight loss Eyes: Negative for blurred vision or discharge Ear/Nose/Throat: Negative for difficulty swallowing, sore throat, LAD Respiratory: Negative for cough, SOA, wheezing Cardiovascular: Negative for chest pain or palpitations Gastrointestinal: Negative for nausea, vomiting or diarrhea Genitourinary: Negative for dysuria or hematuria Musculoskeletal: Negative for any joint pains or muscle aches Neurologic: Negative for any weakness, headaches, dizziness Hematologic: Negative for any easy bleeding or bruising Psychiatric: Negative for anxiety or depression Past Medical History/Past Surgical History/ Family History/ Social History: Reviewed by me and unchanged from my previous documentation done on August 2024. Medications: Current Medications[1] Allergies: Allergies[2] Objective Physical Exam: Vital Signs: Vitals: 12/04/24 1305 BP: 102/68 Pulse: 74 Resp: 18 Temp: 97.5 ??F (36.4 ??C) TempSrc: Temporal SpO2: 96% Weight: 87.6 kg (193 lb 3.2 oz) Height: 177.8 cm (70 ) PainSc: 2 Pain Score 12/04/24 1305 PainSc: 2 ECOG Performance Status: 0 - Asymptomatic Constitutional: NAD, ECOG 0 Eyes: PERRLA, scleral anicteric ENT: No LAD, no thyromegaly Respiratory: CTAB, no wheezing, rales, rhonchi Cardiovascular: RRR, no murmurs, pulses 2+ bilaterally Abdomen: soft, NT/ND, no HSM Musculoskeletal: strength 5/5 bilaterally, no c/c/e Neurologic: A&O x 3, CN II-XII intact grossly Results Review: No visits with results within 2 Week(s) from this visit. Latest known visit with results is: Admission on 03/26/2024, Discharged on 03/30/2024 Component Date Value Ref Range Status QT Interval 03/27/2024 406 ms Final QTC Interval 03/27/2024 456 ms Final Product Code 03/28/2024 [id number] Final Unit Number 03/28/2024 [id number] Final UNIT ABO 03/28/2024 B Final UNIT RH 03/28/2024 POS Final Crossmatch Interpretation 03/28/2024 Compatible Final Dispense Status 03/28/2024 RE Final Blood Expiration Date 03/28/2024837003658728 Final Blood Type Barcode 03/28/2024 7300 Final Product Code 03/28/2024 [id number] Final Unit Number 03/28/2024 [id number] Final UNIT ABO 03/28/2024 B Final UNIT RH 03/28/2024 POS Final Crossmatch Interpretation 03/28/2024 Compatible Final Dispense Status 03/28/2024 RE Final Blood Expiration Date 03/28/2024658311812903 Final Blood Type Barcode 03/28/2024 7300 Final ABO Type 03/26/2024 B Final RH type 03/26/2024 Positive Final Antibody Screen 03/26/2024 Negative Final T&S Expiration Date 03/26/2024 03/29/2024 11:59:59 PM Final Glucose 03/26/2024 192 (H) 70 - 130 mg/dL Final Case Report 03/26/2024 Final Value:Surgical Pathology Report Case: [id number] Authorizing Provider: Casper Morillo MD Collected: 03/26/2024 12:02 PM Ordering Location: [facility] Received: 03/27/2024 07:07 AM OR Pathologist: Nitish Flores MD Intraop: Telma Lara V, Specimens: 1) - Lymph Node, STATION 9 2) - Lymph Node, STATION 7 3) - Lymph Node, 4R 4) - Lymph Node, 2R 5) - Lymph Node, STATION 10 6) - Lymph Node, STATION 11 7) - Lung, Right Lower Lobe, RLL FOR TUMOR IDENTIFICATION, PRANCHYMAL AND BRONCHIAL MARGINS Clinical Information 03/26/2024 Final Value:Lung nodule Final Diagnosis 03/26/2024 Final Value:1. LYMPH NODE, STATION 9, EXCISION: 1 lymph node negative for metastatic carcinoma (0/1). 2. LYMPH NODES, STATION 7, EXCISION: Multiple fragments of at least 1 anthracotic lymph node negative for metastatic tumor. 3. LYMPH NODE, STATION 4R, EXCISION: 1 lymph node negative for metastatic carcinoma (0/1). 4. LYMPH NODE, STATION 2R, EXCISION: Multiple fragments of at least 1 anthracotic lymph node negative for metastatic tumor. 5. LYMPH NODE, STATION 10, EXCISION: 1 lymph node negative for metastatic carcinoma (0/1). 6. LYMPH NODE, STATION 11, EXCISION: 1 lymph node negative for metastatic carcinoma (0/1). 7. LUNG, RIGHT LOWER LOBE, LOBECTOMY: Squamous cell carcinoma, moderately differentiated, 3.7 cm in maximum dimension. 3 lymph nodes negative for metastatic carcinoma (0/3). See tumor synoptic for additional details. Synoptic Checklist 03/26/2024 Final Value:LUNG LUNG - All Specimens 8th Edition - Protocol posted: 11/11/2021 SPECIMEN Procedure: Lobectomy Specimen Laterality: Right TUMOR Tumor Focality: Single focus Tumor Site: Lower lobe of lung Tumor Size: Total Tumor Size (size of entire tumor): Greatest Dimension (Centimeters): 3.7 cm Additional Dimension (Centimeters): 1.8 cm Additional Dimension (Centimeters): 1.8 cm Histologic Type: Invasive squamous cell carcinoma, keratinizing Histologic Grade: G2, moderately differentiated Spread Through Air Spaces (ABBI): Not identified Visceral Pleura Invasion: Not identified Direct Invasion of Adjacent Structures: Not applicable (no adjacent structures present) Treatment Effect: No known presurgical therapy Lymphovascular Invasion: Not identified MARGINS Margin Status for Invasive Carcinoma: All margins negative for invasive carcinoma Closest Margin(s) to Invasive Carcinoma: Parenchymal Distance from Invasive Carcinoma to Closest Margin: Greater than: 0.8 cm Margin Status for Non-Invasive Tumor: Not applicable REGIONAL LYMPH NODES Lymph Node(s) from Prior Procedures: No known prior lymph node sampling performed Regional Lymph Node Status: : All regional lymph nodes negative for tumor Number of Lymph Nodes Examined: At least: 9 Dee Site(s) Examined: 2R: Upper paratracheal Dee Site(s) Examined: 4R: Lower paratracheal Dee Site(s) Examined: 9R: Pulmonary ligament Dee Site(s) Examined: 10R: Hilar Dee Site(s) Examined: 11R: Interlobar Dee Site(s) Examined: 12R: Lobar Dee Site(s) Examined: 7: Subcarinal PATHOLOGIC STAGE CLASSIFICATION (pTNM, AJCC 8th Edition) Reporting of pT, pN, and (when applicable) pM categories is based on information available to the pathologist at the time the report is issued. As per the AJCC (Chapter 1, 8th Ed.) it is the managingphysician???s responsibility to establish the final pathologic stage based upon all pertinent information, including but potentially not limited to this pathology report. pT Category: pT2a pN Category: pN0 ADDITIONAL FINDINGS Additional Findings: Emphysema Intraoperative Consultation 03/26/2024 Final Value:Frozen section: Verbal report given to Dr. Morillo in person on 03/26/2024 at 14:51 EST. FROZEN SECTION DIAGNOSIS: Necrotic tumor identified. Bronchial, vascular, and parenchymal margins negative. AVH (TP for tumor; 1 FS cassette for margins) Stains used for Immediate Evaluation are acceptable. Gross Description 03/26/2024 Final Value:1. Lymph Node. Received in formalin labeled station 9 is a 1.4 x 0.7 x 0.7 cm anthracotic lymph node, bisected and submitted entirely in a single cassette. 2. Lymph Node. Received in formalin labeled station 7 is a 3 x 3 x 1.5 cm aggregate of fragmented, brown soft tissue and fragmented anthracotic lymph node tissue. The specimen is submitted entirely in blocks 2A-2D, with the 2 largest fragments bisected in blocks 2C-2D. 3. Lymph Node. Received in formalin labeled 4R is a 1.5 x 1.0 x 0.4 cm aggregate of yellow adipose tissue and anthracotic lymph node tissue, submitted entirely in a single cassette. 4. Lymph Node. Received in formalin labeled 2R is a 4 x 3.5 x 1.7 cm aggregate of disrupted yellow adipose tissue and anthracotic lymph node tissue, submitted entirely in blocks 4A-4G (largest portion sectioned in blocks 4E-4G). 5. Lymph Node. Received in formalin labeled station 10 is a 0.7 x 0.5 x 0.3 cm anthracotic lymph node, submittedentirely in a single cassette. 6. Lymph Node. Received in formalin labeled station 11 is a 0.9 x 0.7 x 0.4 cm anthracotic lymph node, bisected and submitted entirely in a single cassette. 7. Lung, Right Lower Lobe. Received fresh for frozen section labeled RLL for tumor identification, parenchymal and bronchial margins is a 278 g, 14.5 x 12.5 x 3.5 cm lung lobectomy. The pleura is purple-brown and glistening with minimal anthracotic pigment. Sectioning reveals a 3.7 x 1.8 x 1.8 cm firm, gonzalez-clark mass located at the superior aspect of the lobe, less than 0.1 cm from the pleura (inked green) and 1.8 cm fromthe bronchial and vascular margins. There is a staple line near the mass. The staple line is removed and the underlying parenchyma is inked blue. The mass is 0.8 cm from the inked staple line. The remaining lung parenchyma is red and spongy. No other gross lesions are identified. 3 possible anthracotic lymph nodes are identified averaging 0.5 cm in greatest dimension. The bronchial lining is clark, glistening and striated without occlusive mucus. Customer Trainer sections are submitted as follows: 7A-frozen remnant (bronchial, vascular, and parenchymal margins) 7B-7D-mass with perpendicular pleura 7E-staple line nearest mass 7F-uninvolved lung 7G-three hilar lymph nodes, one inked and bisected. LDP Microscopic Description 03/26/2024 Final Value:The slides are reviewed and demonstrate histopathologic features supporting the above rendered diagnosis. Glucose 03/26/2024 231 (H) 70 - 130 mg/dL Final Glucose 03/27/2024 227 (H) 65 - 99 mg/dL Final BUN 03/27/2024 34 (H) 8 - 23 mg/dL Final Creatinine 03/27/2024 1.09 0.76 - 1.27 mg/dL Final Sodium 03/27/2024 132 (L) 136 - 145 mmol/L Final Potassium 03/27/2024 4.6 3.5 - 5.2 mmol/L Final Chloride 03/27/2024 98 98 - 107 mmol/L Final CO2 03/27/2024 23.0 22.0 - 29.0 mmol/L Final Calcium 03/27/2024 8.0 (L) 8.6 - 10.5 mg/dL Final BUN/Creatinine Ratio 03/27/2024 31.2 (H) 7.0 - 25.0 Final Anion Gap 03/27/2024 11.0 5.0 - 15.0 mmol/L Final eGFR 03/27/2024 77.7 >60.0 mL/min/1.73 Final WBC 03/27/2024 12.56 (H) 3.40 - 10.80 10*3/mm3 Final RBC 03/27/2024 4.65 4.14 - 5.80 10*6/mm3 Final Hemoglobin 03/27/2024 13.5 13.0 - 17.7 g/dL Final Hematocrit 03/27/2024 41.3 37.5 - 51.0 % Final MCV 03/27/2024 88.8 79.0 - 97.0 fL Final MCH 03/27/2024 29.0 26.6 - 33.0 pg Final MCHC 03/27/2024 32.7 31.5 - 35.7 g/dL Final RDW 03/27/2024 15.6 (H) 12.3 - 15.4 % Final RDW-SD 03/27/2024 51.1 37.0 - 54.0 fl Final MPV 03/27/2024 9.9 6.0 - 12.0 fL Final Platelets 03/27/2024 122 (L) 140 - 450 10*3/mm3 Final Neutrophil % 03/27/2024 77.0 (H) 42.7 - 76.0 % Final Lymphocyte % 03/27/2024 15.4 (L) 19.6 - 45.3 % Final Monocyte % 03/27/2024 5.6 5.0 - 12.0 % Final Eosinophil % 03/27/2024 0.9 0.3 - 6.2 % Final Basophil % 03/27/2024 0.6 0.0 - 1.5 % Final Immature Grans % 03/27/2024 0.5 0.0 - 0.5 % Final Neutrophils, Absolute 03/27/2024 9.68 (H) 1.70 - 7.00 10*3/mm3 Final Lymphocytes, Absolute 03/27/2024 1.94 0.70 - 3.10 10*3/mm3 Final Monocytes, Absolute 03/27/2024 0.70 0.10 - 0.90 10*3/mm3 Final Eosinophils, Absolute 03/27/2024 0.11 0.00 - 0.40 10*3/mm3 Final Basophils, Absolute 03/27/2024 0.07 0.00 - 0.20 10*3/mm3 Final Immature Grans, Absolute 03/27/2024 0.06 (H) 0.00 - 0.05 10*3/mm3 Final nRBC 03/27/2024 0.0 0.0 - 0.2 /100 WBC Final WBC 03/28/2024 9.08 3.40 - 10.80 10*3/mm3 Final RBC 03/28/2024 4.21 4.14 - 5.80 10*6/mm3 Final Hemoglobin 03/28/2024 12.3 (L) 13.0 - 17.7 g/dL Final Hematocrit 03/28/2024 37.4 (L) 37.5 - 51.0 % Final MCV 03/28/2024 88.8 79.0 - 97.0 fL Final MCH 03/28/2024 29.2 26.6 - 33.0 pg Final MCHC 03/28/2024 32.9 31.5 - 35.7 g/dL Final RDW 03/28/2024 15.4 12.3 - 15.4 % Final RDW-SD 03/28/2024 50.4 37.0 - 54.0 fl Final MPV 03/28/2024 9.8 6.0 - 12.0 fL Final Platelets 03/28/2024 98 (L) 140 - 450 10*3/mm3 Final Glucose 03/28/2024 278 (H) 65 - 99 mg/dL Final BUN 03/28/2024 33 (H) 8 - 23 mg/dL Final Creatinine 03/28/2024 0.96 0.76 - 1.27 mg/dL Final Sodium 03/28/2024 133 (L) 136 - 145 mmol/L Final Potassium 03/28/2024 4.8 3.5 - 5.2 mmol/L Final Chloride 03/28/2024 100 98 - 107 mmol/L Final CO2 03/28/2024 25.0 22.0 - 29.0 mmol/L Final Calcium 03/28/2024 8.0 (L) 8.6 - 10.5 mg/dL Final BUN/Creatinine Ratio 03/28/2024 34.4 (H) 7.0 - 25.0 Final Anion Gap 03/28/2024 8.0 5.0 - 15.0 mmol/L Final eGFR 03/28/2024 90.5 >60.0 mL/min/1.73 Final Glucose 03/28/2024 232 (H) 70 - 130 mg/dL Final Glucose 03/28/2024 291 (H) 70 - 130 mg/dL Final Glucose 03/28/2024 411 (C) 70 - 130 mg/dL Final Glucose 03/28/2024 326 (H) 70 - 130 mg/dL Final Glucose 03/28/2024 462 (C) 70 - 130 mg/dL Final Glucose 03/28/2024 294 (H) 70 - 130 mg/dL Final Glucose 03/28/2024 277 (H) 70 - 130 mg/dL Final Glucose 03/28/2024 277 (H) 70 - 130 mg/dL Final Glucose 03/28/2024 333 (H) 70 - 130 mg/dL Final WBC 03/29/2024 7.00 3.40 - 10.80 10*3/mm3 Final RBC 03/29/2024 4.25 4.14 - 5.80 10*6/mm3 Final Hemoglobin 03/29/2024 12.6 (L) 13.0 - 17.7 g/dL Final Hematocrit 03/29/2024 38.3 37.5 - 51.0 % Final MCV 03/29/2024 90.1 79.0 - 97.0 fL Final MCH 03/29/2024 29.6 26.6 - 33.0 pg Final MCHC 03/29/2024 32.9 31.5 - 35.7 g/dL Final RDW 03/29/2024 15.7 (H) 12.3 - 15.4 % Final RDW-SD 03/29/2024 51.8 37.0 - 54.0 fl Final MPV 03/29/2024 9.7 6.0 - 12.0 fL Final Platelets 03/29/2024 107 (L) 140 - 450 10*3/mm3 Final Glucose 03/29/2024 207 (H) 65 - 99 mg/dL Final BUN 03/29/2024 26 (H) 8 - 23 mg/dL Final Creatinine 03/29/2024 0.96 0.76 - 1.27 mg/dL Final Sodium 03/29/2024 134 (L) 136 - 145 mmol/L Final Potassium 03/29/2024 4.6 3.5 - 5.2 mmol/L Final Slight hemolysis detected by analyzer. Result may be falsely elevated. Chloride 03/29/2024 99 98 - 107 mmol/L Final CO2 03/29/2024 24.0 22.0 - 29.0 mmol/L Final Calcium 03/29/2024 8.4 (L) 8.6 - 10.5 mg/dL Final BUN/Creatinine Ratio 03/29/2024 27.1 (H) 7.0 - 25.0 Final Anion Gap 03/29/2024 11.0 5.0 - 15.0 mmol/L Final eGFR 03/29/2024 90.5 >60.0 mL/min/1.73 Final Glucose 03/29/2024 202 (H) 70 - 130 mg/dL Final Glucose 03/29/2024 181 (H) 70 - 130 mg/dL Final Glucose 03/29/2024 136 (H) 70 - 130 mg/dL Final Glucose 03/29/2024 284 (H) 70 - 130 mg/dL Final WBC 03/30/2024 6.92 3.40 - 10.80 10*3/mm3 Final RBC 03/30/2024 4.37 4.14 - 5.80 10*6/mm3 Final Hemoglobin 03/30/2024 12.9 (L) 13.0 - 17.7 g/dL Final Hematocrit 03/30/2024 39.3 37.5 - 51.0 % Final MCV 03/30/2024 89.9 79.0 - 97.0 fL Final MCH 03/30/2024 29.5 26.6 - 33.0 pg Final MCHC 03/30/2024 32.8 31.5 - 35.7 g/dL Final RDW 03/30/2024 15.5 (H) 12.3 - 15.4 % Final RDW-SD 03/30/2024 51.4 37.0 - 54.0 fl Final MPV 03/30/2024 9.8 6.0 - 12.0 fL Final Platelets 03/30/2024 156 140 - 450 10*3/mm3 Final Glucose 03/30/2024 167 (H) 65 - 99 mg/dL Final BUN 03/30/2024 24 (H) 8 - 23 mg/dL Final Creatinine 03/30/2024 0.78 0.76 - 1.27 mg/dL Final Sodium 03/30/2024 134 (L) 136 - 145 mmol/L Final Potassium 03/30/2024 5.2 3.5 - 5.2 mmol/L Final Chloride 03/30/2024 98 98 - 107 mmol/L Final CO2 03/30/2024 28.0 22.0 - 29.0 mmol/L Final Calcium 03/30/2024 9.7 8.6 - 10.5 mg/dL Final BUN/Creatinine Ratio 03/30/2024 30.8 (H) 7.0 - 25.0 Final Anion Gap 03/30/2024 8.0 5.0 - 15.0 mmol/L Final eGFR 03/30/2024 102.1 >60.0 mL/min/1.73 Final Glucose 03/30/2024 152 (H) 70 - 130 mg/dL Final Glucose 03/30/2024 222 (H) 70 - 130 mg/dL Final Glucose 03/30/2024 180 (H) 70 - 130 mg/dL Final No results found. Assessment / Plan Assessment/Plan: 1. NSCLC of right lung (Primary) -Enlarging right lung nodule noted on CT scans -PET/CT notable for 2.7 cm hypermetabolic lesion -MRI brain without evidence of disease -Clinical stage IA3 (T1c,N0,M0) -Status post right robotic lower lobectomy with Dr. Morillo on 03/26/2024 -Pathology notable for 3.7 cm, grade 2 moderately differentiated squamous cell carcinoma. 0/9 lymphnodes positive for disease. Surgical margins negative -Pathologic stage IB (T2a,N0,M0) -No indication for adjuvant chemotherapy/immunotherapy/radiation therapy at this time -CT C/A/P in August 2024 reviewed and notable for nodularity near her surgical site likely related toscarring and inflammation. Slight enlarged paratracheal lymph node of undetermined significance -CT C/A/P in November 2024 personally reviewed and notable for stable nodularity near surgical site related to scarring/inflammation. Stable lymphadenopathy -Will plan for repeat CT C/A/P scans in 6 months. Orders placed today 2. Hypertension -BP stable with current regimen 3. Tobacco abuse -Continue cessation since February 2024 Follow Up: Follow-up in 6 months Luis Mills MD Hematology and Oncology Please note that portions of this note may have been completed with a voice recognition program. Efforts were made to edit the dictations, but occasionally words are mistranscribed. [1] Current Outpatient Medications: albuterol sulfate HFA 108 (90 Base) MCG/ACT inhaler, Inhale 2 puffs Every 6 (Six) Hours As Needed for Wheezing or Shortness of Air., Disp: , Rfl: CHOLECALCIFEROL PO, Take by mouth Daily., Disp: , Rfl: cilostazol (PLETAL) 50 MG tablet, Take 1 tablet by mouth 2 (Two) Times a Day., Disp: , Rfl: clopidogrel (PLAVIX) 75 MG tablet, Take 1 tablet by mouth Daily., Disp: , Rfl: escitalopram (LEXAPRO) 10 MG tablet, Take 1 tablet by mouth Daily., Disp: , Rfl: hydrOXYzine (ATARAX) 25 MG tablet, Take 1 tablet by mouth Every 4 (Four) Hours As Needed for Itching., Disp: , Rfl: insulin glargine (LANTUS, SEMGLEE) 100 UNIT/ML injection, Inject 20 Units under the skin into the appropriate area as directed Every Night., Disp: , Rfl: Jardiance 25 MG tablet tablet, Take 1 tablet by mouth Daily., Disp: , Rfl: lamoTRIgine (LaMICtal) 25 MG tablet, Take 2 tablets by mouth 2 (Two) Times a Day., Disp: , Rfl: Lipitor 40 MG tablet, Take 1 tablet by mouth Every Night., Disp: , Rfl: lisinopril (PRINIVIL,ZESTRIL) 10 MG tablet, Take 1 tablet by mouth Daily., Disp: , Rfl: omeprazole (priLOSEC) 40 MG capsule, Take 1 capsule by mouth Daily., Disp: , Rfl: pioglitazone (ACTOS) 30 MG tablet, Take 1 tablet by mouth Daily., Disp: , Rfl: potassium chloride (KLOR-CON M20) 20 MEQ CR tablet, Take 1 tablet by mouth 2 (Two) Times a Day., Disp: , Rfl: sildenafil (VIAGRA) 50 MG tablet, Take 1 tablet by mouth Daily As Needed for Erectile Dysfunction.,Disp: , Rfl: ursodiol (ACTIGALL) 300 MG capsule, Take 2 capsules by mouth Every 12 (Twelve) Hours., Disp: , Rfl: Xarelto 2.5 MG tablet, Take 1 tablet by mouth 2 (Two) Times a Day. Patient instructed to hold priorto surgery. Last dose due 03/22/24, Disp: , Rfl: No current facility-administered medications for this visit. [2] Allergies Allergen Reactions Metformin Diarrhea Morphine Delirium makes him evil and bui skin makes skin hurt documented in this encounter Plan of Treatment Upcoming Encounters Date Type Department Care Team (Late st Contact Info) Description 06/04/2025 11:30 AM EDT Appointment [facility] AT [address] [place] [address] 06/04/2025 1:15 PM EDT Office Visit [facility] HEMATOLOGY & ONCOLOGY [address] [place] [id number] Luis Mills MD [address] [place] [address] Scheduled Orders Name Type Priority Associated Diagnoses Orde r Schedule CT Abdomen Pelvis With Contrast Imaging Routine NSCLC of right lung Expected: 06/02/2025 (Approximate), Expires: 03/06/2026 CT Chest With Contrast Diagnostic Imaging Routine NSCLC of right lung Expected: 06/02/2025 (Approximate), Expires: 03/06/2026 documented as of this encounter Visit Diagnoses Diagnosis NSCLC of right lung- Primary documented in this encounter Care Teams Technical Specialist Relationship Specialty Start Date End Date Oscar Chan APRN [address] [place] [address] [place] [id number] PCP - General Family Medicine 12/04/24 documented as of this encounter
--- OUTSIDE RECORDS SUMMARY | 2024-12-04 13:00 | XMS_ITS | Encounter Summary ---
Author Organization [facility] Address [address] [place] [address] Care Team Providers Care Beef Pusher Name Role Phone Dustin Oscar GARNER Primary Care Provider [phone] Reason for Visit * Reason Comments Lung Cancer 3 month follow up wi th CT chest ordered by oncology for lung cancer Encounter Details Date Type Department Care Team (Late st Contact Info) Description 12/04/2024 2:00 PM EDT Office Visit [facility] CARDI[facility]ACIC SURGERY [address] [facility] [address] [place] [address] Ayala Mcmillan APRN [address] [facility] [address] [place] [address] NSCLC of right lung (Primary Dx) Social [...] alcohol) stopped 09/03/2019, Hx of 30 beers/day [facility] Utilities Answer Date Recorded In the past 12 months has th e electric, gas, oil, or water company threatened to shut off services in your [...] care, and heating? 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 Not on file Not on file Not on file documented as of this encounter Last Filed Vital Signs Vital Sign Reading Time Taken Comments Blood Pressure 100/52 12/04/2024 1:57 PM EDT Pulse 122 12/04/2024 1:57 PM EDT Temperature 36.4 C (97.5 F) 12/04/2024 1:57 PM EDT Respiratory Rate - - Oxygen Saturation 97% 12/04/2024 1:57 PM EDT Inhaled Oxygen Concentration - - Weight 87.6 kg (193 lb 3.2 oz) 12/04/2024 1:57 P M EDT Height 177.8 cm (5' 10 ) 12/04/2024 1:57 PM EDT Body Mass Index 27.72 12/04/2024 1:57 PM EDT documented in this encounter Progress Notes * Ayala Mcmillan, SECURITY COMPLIANCE SPECIALIST - 12/04/2024 2:00 PM EDT Images from the original note were not included. [facility] Cardiothoracic Surgery Office Follow Up Note Date of Encounter: 12/04/2024 Name: Maddie Mcgill : 1965 Referred By: No ref. provider found PCP: Oscar Chan APRN Chief Complaint: Chief Complaint Patient presents with Lung Cancer 3 month follow up with CT chest ordered by oncology for lung cancer Subjective History of Present Illness: Maddie Mcgill is a 58 y.o. male followed by Dr. Morillo s/p robotic assisted right lower lobectomy with mediastinal lymph node dissection 03/26/2024 for treatment of right lower lobe squamous cell carcinoma [id number] clinical stage IB. PMH: Sometime smoker, stage I COPD, diverticulosis s/p partial colectomy, liver cirrhosis secondary to prior alcohol use, PVD (followed by Dr. Odonnell), and rightlower lobe squamous cell carcinoma [id number] clinical stage IB. 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 Histologic grade G2 with moderate differentiation and without visceralpleural invasion. No lymph vascular invasion. All margins negative for invasive carcinoma. 9 regional lymph nodes examined and all negative for tumor. Given tumor size, patient pathologic stage reclassified T2a N0 M0 clinical stage IB. Last seen in clinic 09/19/2024 after following first surveillance CT chest. A small nodularity near surgical scar was thought to represent inflammation or early scarring. A slight enlargement of peritracheal node was also noted. He checks back with us for review of follow-up CT chest per Oncology: Unchanged trace right pleural effusion with pleural thickening, similar appearing mildly enlarged mediastinal and right hilar lymph nodes, and postsurgical changes related to right lower lobectomy without evidence of new pulmonary nodule. Review of Systems: Review of Systems Constitutional: Negative for chills, decreased appetite, diaphoresis, fever, malaise/fatigue, nightsweats, weight gain and weight loss. HENT: Negative for hoarse voice. Eyes: Negative for blurred vision, double vision and visual disturbance. Cardiovascular: Negative for chest pain, claudication, dyspnea on exertion, irregular heartbeat, leg swelling, near-syncope, orthopnea, palpitations, paroxysmal nocturnal dyspnea and syncope. Respiratory: Negative for cough, hemoptysis, shortness of breath, sputum production and wheezing. Hematologic/Lymphatic: Negative for adenopathy and bleeding problem. Does not bruise/bleed easily. Skin: Negative for color change, nail changes, poor wound healing and rash. Musculoskeletal: Negative for back pain, falls and muscle cramps. Gastrointestinal: Negative for abdominal pain, dysphagia and heartburn. Genitourinary: Negative for flank pain. Neurological: Positive for numbness (neuropathy in feet) and paresthesias (neuropathy in feet). Negative for brief paralysis, disturbances in coordination, dizziness, focal weakness, headaches, light-headedness, loss of balance, sensory change, vertigo and weakness. Psychiatric/Behavioral: Negative for depression and suicidal ideas. Allergic/Immunologic: Negative for persistent infections. I have reviewed the following portions of the patient's history: problem list, current medications,allergies, past surgical history, past medical history, past social history, past family history, and ROS and confirm it's accurate. Allergies: Allergies Allergen Reactions Metformin Diarrhea Morphine Delirium makes him evil and bui skin makes skin hurt Medications: Current Outpatient Medications: albuterol sulfate HFA 108 [...] No current facility-administered medications for this visit. History: Past Medical History: Diagnosis Date Cancer skin and lung Cirrhosis Stage IV COPD (chronic obstructive pulmonary disease) Coronary artery disease Diabetes mellitus Elevated cholesterol Flu Full dentures GERD (gastroesophageal reflux disease) Hearing aid worn bilateral Hypertension Insomnia Lung nodule right side Mediastinal lymphadenopathy Pneumonia PVD (peripheral vascular disease) Stroke no residual effect Wears glasses Past Surgical History: Procedure Laterality Date AXILLARY ABCESS IRRIGATION AND DEBRIDEMENT BACK SURGERY BRONCHOSCOPY N/A 03/26/2024 Procedure: BRONCHOSCOPY; Surgeon: Casper Morillo MD; Location: [facility]; Service: Robotics - DaVinci; Laterality: N/A; BRONCHOSCOPY WITH ION ROBOTIC ASSIST N/A 02/08/2024 Procedure: BRONCHOSCOPY NAVIGATION WITH ENDOBRONCHIAL ULTRASOUND AND ION ROBOT; Surgeon: Marni Alicea DO; Location: [facility]; Service: Robotics - Pulmonary; Laterality: N/A; ION #5 Cath 0001 COOK MORNING 0043 Cath guide Radial probe 756 COLON RESECTION diverticulitis COLONOSCOPY FEMORAL ARTERY STENT Left LIVER BIOPSY LOBECTOMY Right 03/26/2024 Procedure: THORACOSCOPY VIDEO ASSISTED RIGHT LOWER LOBECTOMY WITH DAVINCI ROBOT; Surgeon: Casper Morillo MD; Location: [facility]; Service: Robotics - DaVinci; Laterality: Right; LYMPH NODE DISSECTION N/A 03/26/2024 Procedure: MEDIASTINAL LYMPH NODE DISSECTION WITH DAVINCI ROBOT AND INTERCOASTAL NERVE BLOCKS WITH LOCAL INJECTION; Surgeon: Casper Morillo MD; Location: [facility]; Service: Robotics - DaVinci; Laterality: N/A; SKIN BIOPSY right arm TESTICLE TORSION REPAIR Social History Socioeconomic History Marital status: Number of children: 1 Tobacco Use Smoking status: Former Current packs/day: 0.00 Average packs/day: 1.5 packs/day for 30.2 years (45.1 ttl pk-yrs) Types: Cigarettes, Cigars Start date: 1993 Quit date: 03/17/2024 Years since quittin.7 Smokeless tobacco: Never Tobacco comments: 6-7 cigarettes per day as of 03/06/24. Patient reports quitting 3 days ago (03/17/24) Vaping Use Vaping status: Never Used Substance and Sexual Activity Alcohol use: Not Currently Comment: stopped 09/03/2019, Hx of 30 beers/day Drug use: Not Currently Types: Marijuana, Cocaine(coke) Sexual activity: Defer Family History Problem Relation Age of Onset Emphysema Mother COPD Mother Cancer Father Arthritis Father Diabetes Father Alcohol abuse Brother Objective Physical Exam: Vitals: 12/04/24 1357 BP: 100/52 BP Location: Right arm Patient Position: Sitting Pulse: (!) 122 Temp: 97.5 ??F (36.4 ??C) SpO2: 97% Weight: 87.6 kg (193 lb 3.2 oz) Height: 177.8 cm (70 ) Body mass index is 27.72 kg/m??. Physical Exam Vitals reviewed. Constitutional: General: He is not in acute distress. Appearance: He is not toxic-appearing. HENT: Head: Normocephalic and atraumatic. Eyes: General: Lids are normal. Conjunctiva/sclera: Conjunctivae normal. Pupils: Pupils are equal, round, and reactive to light. Neck: Vascular: No JVD. Cardiovascular: Rate and Rhythm: Regular rhythm. Tachycardia present. Heart sounds: S1 normal and S2 normal. No murmur heard. Pulmonary: Effort: Pulmonary effort is normal. No respiratory distress. Breath sounds: Normal breath sounds. Musculoskeletal: General: Normal range of motion. Cervical back: Normal range of motion and neck supple. Lymphadenopathy: Cervical: No cervical adenopathy. Upper Body: Right upper body: No supraclavicular or axillary adenopathy. Left upper body: No supraclavicular or axillary adenopathy. Skin: General: Skin is warm and dry. Capillary Refill: Capillary refill takes less than 2 seconds. Neurological: General: No focal deficit present. Mental Status: He is alert and oriented to person, place, and time. Psychiatric: Attention and Perception: Attention normal. Mood and Affect: Mood normal. Speech: Speech normal. Behavior: Behavior is cooperative. Cognition and Memory: Cognition normal. Imaging/Labs: CT Chest, Abdomen/Pelvis With Contrast Diagnostic Result Date: 12/04/2024 (Personally reviewed and agree w/ Radiology assessment) Impression: 1.Postsurgical changes of right lower lobectomy. No evidence of new or progressive disease in the chest. 2.Similar-appearing mildly enlarged mediastinal and right hilar lymph nodes. 3.Unchanged trace right pleural effusion with pleural thickening. 4.No evidence of metastatic disease in the abdomen/pelvis. 5.Hepatic cirrhosis. Electronically Signed: Artem Haque MD 12/04/2024 CT Chest With Contrast Diagnostic: 08/28/2024 (Personally reviewed and compared to imaging 12/04/24) Impression: 1. Postsurgical changes of right lower lobectomy. 2. Nodularity along suture margin at posterior right upper lobe likely scarring, recommend attention on follow-up. 3. Stable mildly enlarged right paratracheal lymph node not hypermetabolic on prior PET/CT. Mildly enlarged right hilar lymph nodes mildly increased in size from prior study. Recommend close attention on follow-up otherwise consider PET/CT for further assessment. 4. Small right pleural effusion with adjacent right basilar atelectasis. 5. Emphysema, coronary artery calcifications, and additional chronic findings above. Electronically Signed: Cory Figueroa MD 08/28/2024 Surgical Pathology 03/26/2024 Clinical Information Lung nodule Final Diagnosis 1. LYMPH NODE, STATION 9, EXCISION: 1 lymph [...] (0/3). See tumor synoptic for additional details. at 1622 Synoptic Checklist LUNG 8th Edition - Protocol posted: 11/11/2021LUNG - All Specimens SPECIMEN Procedure Lobectomy Specimen Laterality Right TUMOR Tumor Focality Single focus Tumor Site Lower lobe of lung Tumor Size Total Tumor Size (size of entire tumor) Greatest Dimension (Centimeters): 3.7 cm Additional Dimension (Centimeters) 1.8 cm 1.8 cm Histologic Type Invasive squamous cell carcinoma, keratinizing Histologic Grade G2, moderately differentiated Spread Through Air Spaces (ABBI) Not identified Visceral Pleura Invasion Not identified Direct Invasion of Adjacent Structures Not applicable (no adjacent structures present) Treatment Effect No known presurgical therapy Lymphovascular Invasion Not identified MARGINS Margin Status for Invasive Carcinoma All margins negative for invasive carcinoma Closest Margin(s) to Invasive Carcinoma Parenchymal Distance from Invasive Carcinoma to Closest Margin Greater than: 0.8 cm Margin Status for Non-Invasive Tumor Not applicable REGIONAL LYMPH NODES Lymph Node(s) from Prior Procedures No known prior lymph node sampling performed Regional Lymph Node Status All regional lymph nodes negative for tumor Number of Lymph Nodes Examined At least: 9 Dee Site(s) Examined 2R: Upper paratracheal 4R: Lower paratracheal 9R: Pulmonary ligament 10R: Hilar 11R: Interlobar 12R: Lobar 7: Subcarinal PATHOLOGIC STAGE CLASSIFICATION (pTNM, AJCC [...] not limited to this pathology report. pT Category pT2a pN Category pN0 ADDITIONAL FINDINGS Additional Findings Emphysema FDG NM PET/CT SKULL BASE TO MID THIGH: 03/05/2024 IMPRESSION: 1.Increased metabolic activity within the cavitary mass in the superior segment of the right lower lobe consistent with known primary lung carcinoma. 2.No evidence of metastatic disease. 3.Multiple incidental findings as noted above. Electronically Signed: Ok Cam MD 03/05/2024 CT Chest Without Contrast Diagnostic: 02/06/2024 Impression: 1. Stable cavitary mass seen within the medial aspect of the right lower lobe. No additional suspicious pulmonary nodule or adenopathy identified. 2. Ancillary findings as described above. Electronically Signed: Cynthia Hill MD 02/06/2024 8:39 AMEST Assessment / Plan Assessment / Plan: 1. NSCLC of right lung - 58 y.o. male followed by Dr. Morillo for right lower lobe squamous cell carcinoma [id number] clinicalstage IB. - PMH: Sometime smoker, stage I COPD, diverticulosis s/p partial colectomy, liver cirrhosis secondary to prior alcohol use, PVD (followed by Dr. Odonnell), and right lower lobe squamous cell carcinoma s/p robotic assisted right lower lobectomy 03/26/2024 ([id number] clinical stage IB). 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 Histologic grade G2 with moderate differentiation and without visceral pleural invasion. No lymph vascular invasion. All margins negative for invasive carcinoma. 9 regional lymph nodes examined and all negative for tumor. - Given tumor size, patient pathologic stage reclassified T2a N0 M0 clinical stage IB. - Last seen in clinic 09/19/2024 after following first surveillance CT chest: small nodularity near surgical scar was thought to represent inflammation or early scarring. A slight enlargement of peritracheal node - Returns w/ CT chest per Oncology: Unchanged trace right pleural effusion with pleural thickening,similar appearing mildly enlarged mediastinal and right hilar lymph nodes, and postsurgical changesrelated to right lower lobectomy without evidence of new pulmonary nodule. - Reviewed imaging in person w/ patient and spouse - Good functional recovery since surgery. Denies SOA at rest or SALTER. -Discussed importance of smoking cessation - Continue to follow with oncology as scheduled -No further follow-up at CT surgery required unless requested by oncology Patient Education: Maddie Mcgill reports that he quit smoking about 8 months ago. His smoking use included cigarettes and cigars. He started smoking about 31 years ago. He has a 45.1 pack-year smoking history. He has never used smokeless tobacco. I have educated him on the risk of diseases from using tobacco products such as cancer, COPD, heart disease, and arterial disease. I advised him to quit and he is not willing to quit. I spent 3.5 minutes counseling the patient. Follow Up: Return Per Oncology request. Or sooner for any further concerns or worsening sign and symptoms. If unable to reach us in the office please dial 911 or go to the nearest emergency department. Ayala Mcmillan APRN [facility] Cardiothoracic Surgery Time Spent: I spent 25 minutes caring for Maddie on this date of service. This time includes time spent by me in the following activities: preparing for the visit, reviewing tests, obtaining and/or reviewing a separately obtained history, performing a medically appropriate examination and/or evaluation, counseling and educating the patient/family/caregiver, documenting information in the medical record, independently interpreting results and communicating that information with the patient/family/caregiver, and care coordination. documented in this encounter Plan of Treatment Upcoming Encounters Date Type Department Care Team (Late st Contact Info) Description 06/04/2025 11:30 AM EDT Appointment [facility] AT [address] [place] [address] 06/04/2025 1:15 PM EDT Office Visit [facility] HEMAT[facility] & ONCOLOGY [address] [facility] [address] [place] [address] Luis Mills MD [address] [facility] [address] [place] [address] documented as of this encounter Visit Diagnoses Diagnosis NSCLC of right lung- Primary documented in this encounter Care Teams Beef Pusher Relationship Specialty Start Date End Date Oscar Chan APRN [address] [place] [address] [place] [address] PCP - General Family Medicine 12/04/24 documented as of this encounter
--- OUTSIDE RECORDS SUMMARY | 2025-01-29 07:52 | XMS_ITS | Encounter Summary ---
Author Organization [facility] Address [address] [place] [address] Care Team Providers Care Wood Piler Name Role Phone Annmarie Moran APRN Primary Care Provider Nisreen Randolph MD Unavailable Encounter Details Date Type Department Care Team (Late Contact Info) Description 12/24/2024 Orders Only [facility] [address] [place] [address] Jeannine Biggs Proteinuria, unspecified type (Primary Dx); Vitamin D insufficiency Social History Tobacco Use Types Packs/Day Years Used Date Smoking Tobacco: Every Day Cigarettes Smokeless Tobacco: Never Alcohol Use Standard Drinks/Week Comments Never 0 (1 standard drink = 0.6 oz pur e alcohol) Sex and Gender Information Value Date Recorded Sex Assigned at Not on file Legal Sex Male 6:16 PM EDT Gender Identity Not on file Sexual Orientation Not on file documented as of this encounter Plan of Treatment Upcoming Encounters Date Type Department Care Team (Late Contact Info) Description 03/29/2025 11:00 AM EST Office Visit [facility] [address] [place] [address] Cristofer Xiong MD [address] [place] [phone] Scheduled Orders Name Type Priority Associated Diagnoses Orde r Schedule Renal Function Panel, Plasma Lab Routine Proteinuria, unspecified type Expected: 12/24/2024 (Approximate), Expires: 06/23/2026 CBC and Differential Lab Routine Proteinuria, unspecified type Expected: 12/24/2024 (Approximate), Expires: 06/23/2026 Creatinine, Random, Urine Lab Routine Proteinuria, unspecified type Expected: 12/24/2024 (Approximate), Expires: 06/23/2026 Protein, Random, Urine with Creatinine Lab Routine Proteinuria, unspecified type Expected: 12/24/2024 (Approximate), Expires: 06/23/2026 Urinalysis with reflex microscopic (Culture NOT Included) Lab Routine Proteinuria, unspecified type Expected: 12/24/2024 (Approximate), Expires: 06/23/2026 PTH Intact Total Lab Routine Proteinuria, unspecified type Vitamin D insufficiency Expected: 12/24/2024 (Approximate), Expires: 06/23/2026 Vitamin D 25 Hydroxy Lab Routine Proteinuria, unspecified type Vitamin D insufficiency Expected: 12/24/2024 (Approximate), Expires: 06/23/2026 Albumin-creatinine ratio, urine, random Lab Routine Proteinuria, unspecified type Expected: 12/24/2024 (Approximate), Expires: 06/23/2026 documented as of this encounter Visit Diagnoses Diagnosis Proteinuria, unspecified type- Primary Vitamin D insufficiency documented in this encounter Additional Health Concerns Assessment Noted Time A fall risk assessment has been complete d for the patient 04/28/2021 10:36 AM EST documented as of this encounter Care Teams Wood Piler Relationship Specialty Start Date End Date Annmarie Moran APRN [facility] [place] [address] PCP - General 04/28/21 Nisreen Randolph MD [address] [facility] [address] [place] [phone] Surgeon Neurosurgery 04/28/21 documented as of this encounter
--- OUTSIDE RECORDS SUMMARY | 2025-01-29 07:52 | XMS_ITS | Clinical Summary ---
Author Organization [facility] Address [address] [place] [address] Care Team Providers Care Paraffin Plant Operator Name Role Phone Annmarie Moran APRN Primary Care Provider [phone] Nisreen Randolph MD Allergies Active Allergy Reactions Criticality Noted Date Comments Morphine Other - please docum ent in the comment field Low 12/19/2009 makes him evil and bui skin makes skin hurt Medications ProAir HFA 108 (90 Base) MCG/ACT inhaler INHALE 1 OR 2 PUFFS EVERY 4 HOURS NEEDED 04/22/2021 Active amLODIPine (Norvasc) 10 MG tablet TAKE 1 TABLET 1 TIME EACH DAY 04/22/2021 Active Aspirin Low Dose 81 MG EC tablet TAKE 1 TABLET 1 TIME EACH DAY 04/22/2021 Active atorvastatin (Lipitor) 40 MG tablet TAKE 1 TABLET 1 TIME EACH DAY AT BEDTIME 04/22/2021 Active atorvastatin (Lipitor) 80 MG tablet 01/24/2017 Active diclofenac (Voltaren) 1 % topical gel APPLY 2 GRAMS OVER THE AFFECTED AREA 4 TIMES EACH DAY FOR ARTHRITIS. 10/17/2020 Active Jardiance 25 MG TAKE 1 TABLET 1 TIME EACH DAY IN THE MORNING FOR DIABETES. 04/22/2021 Active lisinopril-hydr oCHLOROthiazide 20-12.5 MG tablet 02/27/2016 Active metFORMIN (Glucophage) 1000 MG tablet TAKE 1 TABLET 2 TIMES EACH DAY WITH MORNING AND EVENING MEALS 04/22/2021 Active omeprazole (PriLOSEC) [address] capsule TAKE 1 CAPSULE 1 TIME EACH DAY 04/22/2021 Active PARoxetine (Paxil) 20 MG tablet TAKE 1 TABLET 1 TIME EACH DAY 04/22/2021 Active pioglitazone (Actos) 30 MG tablet TAKE 1 TABLET 1 TIME EACH DAY 04/22/2021 Active potassium chloride CR (Klor-Con M20) 20 MEQ ER tablet TAKE 1 TABLET 2 TIMES EACH DAY WITH FOOD. 04/22/2021 Active Xarelto 2.5 MG tablet TAKE 1 TABLET 2 TIMES EACH DAY 04/22/2021 Active sildenafil (Viagra) 50 MG tablet TAKE 1 TABLET 1 TIME EACH DAY NEEDED, ABOUT 1 HOUR BEFORE SEXUAL ACTIVITY. 04/24/2021 Active GAS RELIEF 125 MG capsule TAKE 1 CAPSULE EVERY 6 HOURS NEEDED FOR GAS 06/13/2020 Active thiamine (Vitamin B-1) 100 MG tablet TAKE 1 TABLET 2 TIMES EACH DAY 04/22/2021 Active ursodiol (Actigall) 300 MG capsule TAKE 2 CAPSULES 2 TIMES EACH DAY 04/22/2021 Active Encounters Date Type Department Care Team Description 12/24/2024 Orders Only [facility] [address] [place] [address] Jeannine Biggs Proteinuria, unspecified type (Primary Dx); Vitamin D insufficiency from Last 3 Months Immunizations Immunization Administration Dates Next Due Influenza, Unspecified 12/23/2009 Family History Medical History Relation Name Comments Stroke Other 1 Hypertension Other 2 Other cancer Other 3 Relation Name Status Comments Other 1 Other 2 Other 3 Social History Tobacco Use Types Packs/Day Years Used Date Smoking Tobacco: Every Day Cigarettes Smokeless Tobacco: Never Alcohol Use Standard Drinks/Week Comments Never 0 (1 standard drink = 0.6 oz pur e alcohol) Sex and Gender Information Value Date Recorded Sex Assigned at Not on file Legal Sex Male 6:16 PM EDT Gender Identity Not on file Sexual Orientation Not on file Last Filed Vital Signs Vital Sign Reading Time Taken Comments Blood Pressure 130/70 04/28/2021 10:19 AM EST Pulse 90 02/25/2017 10:09 AM EST Temperature - - Respiratory Rate - - Oxygen Saturation - - Inhaled Oxygen Concentration - - Weight 90.3 kg (199 lb) 04/28/2021 10:19 AM EST Height 177.8 cm (5' 10 ) 04/28/2021 10:19 AM EST Body Mass Index 28.55 04/28/2021 10:19 AM EST Plan of Treatment Upcoming Encounters Date Type Department Care Team (Late st Contact Info) Description 03/29/2025 11:00 AM EST [facility] [address] [place] [address] Cristofer Xiong MD [address] [place] [address] Health Maintenance Due Date Last Done Comments [facility]-Depression Screening 1965 [facility]-HIV Screening 1965 [facility]-Hepatitis C Screening 1965 [facility]-Medicare Annual Wellness (AWV) 1965 [facility]-/Child/Adol SDOH Screenings 01/01/1964 [facility]- SDOH Screenings 12/30/1981 [facility]-Adult SDOH Screenings 12/30/1981 [facility]-DTaP,Tdap,and Td Vaccines (1 - Tdap) 12/30/1982 CT Colonography 12/30/2008 Colonoscopy 12/30/2008 FIT-DNA 12/30/2008 FIT 12/30/2008 FOBT 12/30/2008 Sigmoidoscopy 12/30/2008 [facility]-Colorectal Cancer Screening 12/30/2008 EII-GILZA-63 Vaccine ( season) 2024 02/17/2023, 12/08/2021, 02/12/2021, Additional history exists [facility]-RSV Vaccine: 60+ Years or (1 - 1-dose 75+ series) 12/30/2038 [facility]-Zoster Vaccines Completed 04/18/2023, [facility]-Pneumococcal Vaccine: 50+ Years Completed 12/12/2023, 10/19/2016, 10/19/2016, Additional history exists [facility]-Influenza Vaccine Completed 11/29/2024 , 12/12/2023, 01/18/2023, Additional history exists HPV Vaccines Aged Out No longer eligi ble based on patient's age to complete this topic [facility]-HIB Vaccines Aged Out No longer e ligible based on patient's age to complete this topic [facility]-Hepatitis A Vaccines Aged Out No longer eligible based on patient's age to complete this topic [facility]-IPV Vaccines Aged Out No longer e ligible based on patient's age to complete this topic [facility]-Rotavirus Vaccines Aged Out No lo nger eligible based on patient's age to complete this topic Insurance AN[employer]M MEDICARE Care Teams Paraffin Plant Operator Relationship Specialty Start Date End Date Annmarie Moran APRN [facility] [place] [address] PCP - General 04/28/21 Nisreen Randolph MD [address] [facility] [address] [place] [address] Surgeon Neurosurgery 04/28/21
--- OUTSIDE RECORDS SUMMARY | 2025-01-29 07:53 | XMS_ITS | Clinical Summary ---
Author Organization [facility] Address [address] [place] [address] Care Team Providers Care Manager Emergency Department Name Role Phone Oscar Chan APRN Primary Care Provider [phone] Allergies Active Allergy Reactions Criticality Noted Date Comments Metformin Diarrhea High 12/04/2024 Morphine Delirium Medium 12/19/2009 makes him evil and bui skin makes skin hurt Medications albuterol sulfate HFA 108 (90 Base) MCG/ACT inhaler Inhale 2 puffs Every 6 (Six) Hours As Needed for Wheezing or Shortness of Air. Active Lipitor 40 MG tablet Take 1 tablet by mouth Every Night. Active Jardiance 25 MG tablet tablet Take 1 tablet by mouth Daily. 4 Active lisinopril (PRINIVIL,ZESTR IL) 10 MG tablet Take 1 tablet by mouth Daily. 4 Active pioglitazone (ACTOS) 30 MG tablet Take 1 tablet by mouth Daily. Active potassium chloride (KLOR-CON M20) 20 MEQ CR tablet Take 1 tablet by mouth 2 (Two) Times a Day. Active Xarelto 2.5 MG tablet Take 1 tablet by mouth 2 (Two) Times a Day. Patient instructed to hold prior to surgery. Last dose due 03/22/24 4 Active CHOLECALCIFEROL PO Take by mouth Daily. Active omeprazole (priLOSEC) 40 MG capsule Take 1 capsule by mouth Daily. 5 Active cilostazol (PLETAL) 50 MG tablet Take 1 tablet by mouth 2 (Two) Times a Day. 5 Active clopidogrel (PLAVIX) 75 MG tablet Take 1 tablet by mouth Daily. Active escitalopram (LEXAPRO) 10 MG tablet Take 1 tablet by mouth Daily. Active hydrOXYzine (ATARAX) 25 MG tablet Take 1 tablet by mouth Every 4 (Four) Hours As Needed for Itching. Active insulin glargine (LANTUS, SEMGLEE) 100 UNIT/ML injection Inject 20 Units under the skin into the appropriate area as directed Every Night. Active ursodiol (ACTIGALL) 300 MG capsule Take 2 capsules by mouth Every 12 (Twelve) Hours. Active sildenafil (VIAGRA) 50 MG tablet Take 1 tablet by mouth Daily As Needed for Erectile Dysfunction. Active lamoTRIgine (LaMICtal) 25 MG tablet Take 2 tablets by mouth 2 (Two) Times a Day. Active Active Problems Problem Noted Date Diagnosed Date Lung cancer 03/26/2024 NSCLC of right lung 03/20/2024 Lung nodule s/p Robotic right lower lobectomy 03/26/202401/24/2024 Encounters Date Type Department Care Team Description 12/04/2024 2:00 PM EDT Office Visit [facility] [address] [place] [address] Ayala Mcmillan APRN NSCLC of right lung (Primary Dx) 12/04/2024 1:15 PM EDT Office Visit [facility] HEMATOLOGY & ONCOLOGY [address] [place] [address] Luis Mills MD NSCLC of right lung (Primary Dx) 12/04/2024 11:30 AM EDT - 12/04/2024 11:59 PM EDT Hospital Encounter [facility] AT [address] [place] [address] Luis Mills MD NSCLC of right lung Discharge Disposition: Home or Self Care 12/04/2024 Telephone [facility] HEMATOLOGY & ONCOLOGY [address] [place] [address] Luis Mills MD 12/04/2024 Travel from Last 3 Months Immunizations Immunization Administration Dates Next Due Fluzone >6mos 11/10/2017 Fluzone (or Fluarix & Flulav al for VFC) >6mos 01/18/2023,11/28/2020 Influenza Injectable Mdck Pf Quad 10/31/2019 Influenza Seasonal Injectable 12/12/2023 Influenza, Unspecified 12/23/2009 Pneumococcal Conjugate 13-Valent (PCV13) 017 Pneumococcal Polysaccharide (PPSV23) 12/12/2023, 10/19/2016,10/16/2016 Shingrix 04/18/2023,05/25/2022 Family History Medical History Relation Name Comments Alcohol abuse Brother Arthritis Father Cancer Father Diabetes Father COPD Mother Emphysema Mother Relation Name Status Comments Brother Father Mother Social History Tobacco Use Types Packs/Day Years Used Date Smoking Tobacco: Former Cigarettes 1.5 30.2 1 994 - 03/17/2024 Cigars Smokeless Tobacco: Never Tobacco Cessation:Counseling Given: Not Answered Comments:6-7 cigarettes per day as of 03/06/24. Patient reports quitting 3 days ago (03/17/24) Alcohol Use Standard Drinks/Week Comments Not Currently 0 (1 standard drink = 0.6 oz pure alcohol) stopped 09/03/2019, Hx of 30 beers/day [facility] Utilities Answer Date Recorded In the past 12 months has e [employer], gas, oil, or water [employer] threatened to shut off services in your [...] care, and heating? 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 Not on file Not on file Last Filed Vital Signs Vital Sign Reading Time Taken Comments Blood Pressure 100/52 12/04/2024 1:57 PM EDT Pulse 122 12/04/2024 1:57 PM EDT Temperature 36.4 C (97.5 F) 12/04/2024 1:57 PM EDT Respiratory Rate 18 12/04/2024 1:05 PM EDT Oxygen Saturation 97% 12/04/2024 1:57 PM EDT Inhaled Oxygen Concentration - - Weight 87.6 kg (193 lb 3.2 oz) 12/04/2024 1:57 P M EDT Height 177.8 cm (5' 10 ) 12/04/2024 1:57 PM EDT Body Mass Index 27.72 12/04/2024 1:57 PM EDT Plan of Treatment Upcoming Encounters Date Type Department Care Team (Late st Contact Info) Description 06/04/2025 11:30 AM EDT Appointment [facility] AT [address] [place] [phone] 06/04/2025 1:15 PM EDT Office Visit [facility]Y [address] [facility] [address] [place] [phone] Luis Mills MD [address] [facility] [address] [place] [phone] Health Maintenance Due Date Last Done Comments DIABETIC EYE EXAM 12/30/1973 DIABETIC FOOT EXAM 12/30/1973 URINE MICROALBUMIN-CREATININ E RATIO (uACR) 12/30/1973 TDAP/TD VACCINES (1 - Tdap) 12/30/1982 COLOGUARD 12/30/2008 COLON CANCER SCREENING 5 YEA R SIGMOIDOSCOPY 12/30/2008 CT COLONOGRAPHY 12/30/2008 FECAL OCCULT BLOOD TEST 12/30/2008 FIT Testing (1 year) 12/30/2008 Hepatitis B (1 of 3 - Risk 3 -dose series) 2023 ANNUAL WELLNESS VISIT 01/11/2024 HEPATITIS C SCREENING 01/11/2024 HEMOGLOBIN A1C 09/17/2024 03/20/2024 Pneumococcal Vaccine 50+ (3 of 3 - PCV20 or PCV21) 12/11/2028 12/12/2023, 10/19/2016, 10/19/2016, Additional history exists COLONOSCOPY 10/05/2029 10/06/2019 COLORECTAL CANCER SCREENING 10/05/2029 ZOSTER VACCINE Completed 04/18/2023, 05/25/2022 INFLUENZA VACCINE Completed 11/29/2024, , 01/18/2023, Additional history exists LUNG CANCER SCREENING Discontinued 12/04/2024 , 08/28/2024, 02/02/2024, Additional history exists Medical Devices Implanted Type Area Cylinder Handler Device Identifier Shelf Expiration Date Model / Serial / Lot Reload Stplr Sureform 45 Davinci/X/Xi 6row 2.5 Wht 1p/U - [id number] Implanted:Qty : 2 on 03/26/2024 by Casper Morillo MD at [facility] Implant Right: Lung [employer] [id number] 11/20/2026 [id number] / / [id number] [id number] Reload Stplr Sureform 45 Davinci/X/Xi 6row 4.3 Grn 1p/U - [id number] Implanted:Qty : 4 on 03/26/2024 by Casper Morillo MD at [facility] Implant Right: Lung [employer] [id number] 05/21/2025 [id number] / / [id number] [id number] Reload Stplr Sureform 45 Davinci/X/Xi 6row 3.5 Shay 1p/U - [id number] Implanted:Qty : 6 on 03/26/2024 by Casper Morillo MD at [facility] Implant Right: Lung [employer] [id number] 12/21/2026 [id number] / / [id number] [id number] Procedures Procedure Name Priority Date/Time Associated Diagnosis Comments CT CHEST W CONTRAST STAT 12/04/2024 1 1:51 AM EDT NSCLC of right lung CT ABDOMEN PELVIS W CONTRAST STAT 12/04/2024 11:51 AM EDT NSCLC of right lung HEMOGLOBIN A1C Routine 03/20/2024 11:59 AM EST Lung nodule Abnormal finding of blood chemistry, unspecified from Last 3 Months or Most Recently Relevant to Health Maintenance Results * CT Abdomen Pelvis With Contrast (12/04/2024 [...] MD 12/04/2024 1:47 PM EDT Workstation ID: [id number] Narrative 12/04/2024 1:[address] CHEST [...] MD 12/04/2024 1:47 PM EDT Workstation ID: [id number] Luis Mills MD IM CT ORDERABLES Final Resu lt * CT Chest With Contrast Diagnostic (12/04/2024 [...] MD 12/04/2024 1:47 PM EDT Workstation ID: [id number] Narrative 12/04/2024 1:[address] CHEST [...] MD 12/04/2024 1:47 PM EDT Workstation ID: [id number] Luis Mills MD IMG CT ORDERABLES Final Resu lt * (ABNORMAL) Hemoglobin A1c (03/20/2024 11:59 AM EST) Hemoglobin A1C 9.40(H) 4.80 - 5.60 % 03/20/2024 12:53 PM EST [facility] Blood Venipuncture / Unknown 03/20/2024 11:59 AM EST 03/20/2024 12:20 PM EST Narrative [facility] - 03/20/2024 12:53 PM EST Hemoglobin A1C Ranges: Increased Risk for Diabetes 5.7% to 6.4% Diabetes >= 6.5% Diabetic Goal < 7.0% Jasmyn Curiel SPOOL WORKER LAB BLOOD ORDERABLES Final R esult [facility]
[address] [place] [address], from Last 3 Months or Most Recently Relevant to Health Maintenance Insurance MEDICARE ADVANTAGE HMO Advance Directives * CPR (Attempt to Resuscitate) (Latest Code Status on File) Date Activated Date Inactivated Comments 03/26/2024 3:27 PM 03/30/2024 7:52 PM Question Answer Comments Code Status (Patient has no pulse and is not breathing): CPR (Attempt to Resuscitate) Medical Interventions (Patie nt has pulse or is breathing): Full Support Care Teams Manager Emergency Department Relationship Specialty Start Date End Date Oscar Chan APRN [address] [place] [id number] PCP - General Family Medicine 12/04/24
--- OUTSIDE RECORDS SUMMARY | 2025-01-29 07:53 | XMS_ITS | Encounter Summary ---
[facility] Address [address] [place] [address] Care Team Providers Care Functional Tester Name Role Phone Oscar Chan APRN Primary Care Provider [phone] Encounter Details Date Type Department Care Team (Late st Contact Info) Description 12/04/2024 Telephone [facility] & [facility] [address] [facility] [address] [place] [address] Luis Mills MD [address] [facility] [address] [place] [address] Social History Tobacco Use Types Packs/Day Years [...] Recorded In the past 12 months has [employer], gas, oil, or water [employer] threatened to shut off services in your [...] care, and heating? 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 Follow up with Dr Mills in 6 months as scheduled.Maddie states understood documented in this encounter Plan of Treatment Upcoming Encounters Date Type Department Care Team (Late st Contact Info) Description 06/04/2025 11:30 AM EDT Appointment [facility] AT [address] [place] [address] 06/04/2025 1:15 PM EDT Office Visit [facility] ONCOLOGY [address] [facility] [address] [place] [address] Luis Mills MD [address] [facility] [address] [place] [address] documented as of this encounter Visit Diagnoses Not on filedocumented in this encounter Care Teams Functional Tester Relationship Specialty Start Date End Date Elizabet Chana, POLICE OFFICER BOOKING [address] [place] [id number] PCP - General Family Medicine 12/04/24 documented as of this encounter
--- OUTSIDE RECORDS SUMMARY | 2025-01-29 07:54 | XMS_ITS | Encounter Summary ---
[facility] Address [address] [place] [address] Care Team Providers Care Rail Car Maintenance Mechanic Name Role Phone Chelsi [email or web address] PASCUAL Primary Care Provider [phone] Encounter Details Date Type Department Care Team (Latest Contact Info) Description 12/04/2024 Travel Social History Tobacco Use Types Packs/Day Years Used Date Smoking Tobacco: Former Cigarettes 1.5 30.2 1 994 - 03/17/2024 Cigars Smokeless Tobacco: Never Comments:6-7 cigarettes per day as of 03/06/24. Patient reports quitting 3 days ago (03/17/24) Alcohol Use Standard Drinks/Week Comments Not Currently 0 (1 standard drink = 0.6 oz pure alcohol) stopped 09/03/2019, Hx of 30 beers/day [facility] Utilities Answer Date Recorded In the past 12 months has [employer], gas, oil, or water [employer] threatened to shut off services in your [...] care, and heating? 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 on file Not on file documented as of this encounter Plan of Treatment Upcoming Encounters Date Type Department Care Team (Late st Contact Info) Description 06/04/2025 11:30 AM EDT Appointment [facility] AT [address] [place] [address] 06/04/2025 1:15 PM EDT Office Visit [facility] H[facility] & ONCOLOGY [address] [facility] [address] [place] [address] Luis Mills MD [address] [facility] [address] [place] [address] documented as of this encounter Visit Diagnoses Not on filedocumented in this encounter Care Teams Rail Car Maintenance Mechanic Relationship Specialty Start Date End Date Oscar Chan APRN [address] [place] [id number] PCP - General Family Medicine 12/04/24 documented as of this encounter
--- OUTSIDE RECORDS SUMMARY | 2025-01-29 07:57 | XMS_ITS | Encounter Summary ---
Author Organization [facility] Address [address] [place] [address] Care Team Providers Care Director Professional Services Name Role Phone Annmarie Moran APRN Primary Care Provider Nisreen Randolph MD Unavailable Encounter Details Date Type Department Care Team (Late st Contact Info) Description 05/24/2024 Orders Only External Location [address] [place] [address] Provider, External Social History Tobacco Use Types Packs/Day Years [...] Description 03/29/2025 11:00 AM EST Office Visit [facility] [address] [place] [phone] Cristofer Xiong MD [address] [place] [phone] documented as of this encounter Procedures Procedure Name Priority Date/Time Associated Diagnosis Comments IR OUTSIDE IMAGES 05/24/2024 11:44 AM EDT documented in this encounter Results * IR OUTSIDE IMAGES (05/24/2024 11:44 AM EDT) Anatomical Region Laterality Modality X-Ray Angiograph y 05/24/2024 11:4 4 AM EDT us External Provider IMG IR PROCEDURES Final Result documented in this encounter Visit Diagnoses Not on filedocumented in this encounter Additional Health Concerns Assessment Noted Time A fall risk assessment has been complete d for the patient 04/28/2021 10:36 AM EST documented as of this encounter Care Teams Director Professional Services Relationship Specialty Start Date End Date Annmarie Moran, PASCUAL [facility] [place] [address] PCP - General 04/28/21 Nisreen Randolph MD [address] [facility] [address] [place] [address] Surgeon Neurosurgery 04/28/21 documented as of this encounter
--- OUTSIDE RECORDS SUMMARY | 2025-01-29 07:57 | XMS_ITS | Encounter Summary ---
Author Organization [facility] Address [address] [place] [address] Care Team Providers Care Capsule Maker Name Role Phone Annmarie Moran APRN Primary Care Provider Nisreen Randolph MD Unavailable Encounter Details Date Type Department Care Team (Late st Contact Info) Description 05/18/2024 Orders Only External Location [address] [place] [address] Provider, External Social History Tobacco Use Types [...] Description 03/29/2025 11:00 AM EST Office Visit [facility] [address] [place] [phone] Cristofer Xiong MD [address] [place] [address] documented as of this encounter Procedures Procedure Name Priority Date/Time Associated Diagnosis Comments CT OUTSIDE IMAGES 05/18/2024 9:32 AM EDT documented in this encounter Results * CT OUTSIDE IMAGES (05/18/2024 9:32 AM EDT) Anatomical Region Laterality Modality Computed Tomogra phy 05/18/2024 9:32 AM EDT us External Provider IMG CT PROCEDURES Final Result documented in this encounter Visit Diagnoses Not on filedocumented in this encounter Additional Health Concerns Assessment Noted Time A fall risk assessment has been complete d for the patient 04/28/2021 10:36 AM EST documented as of this encounter Care Teams Capsule Maker Relationship Specialty Start Date End Date Annmarie Moran, MANAGER OF SECURITY [address] [place] [id number] PCP - General 04/28/21 Nisreen Randolph MD [address] [facility] [address] [place] [address] Surgeon Neurosurgery 04/28/21 documented as of this encounter
--- OUTSIDE RECORDS SUMMARY | 2025-01-29 07:57 | XMS_ITS | Encounter Summary ---
Author Organization Healthcare Address [address] [place] [address] Care Team Providers Care Bag Machine Operator Name Role Phone Annmarie Moran APRN Primary Care Provider [phone] Nisreen Randolph MD Unavailable Encounter Details Date Type Department Care Team (Late st Contact Info) Description 06/13/2024 Orders Only External Location [address] [place] [address] Provider, External Social History Tobacco Use Types [...] Description 03/29/2025 11:00 AM EST Office Visit [facility] [address] [place] [phone] Cristofer Xiong MD [address] [place] [phone] documented as of this encounter Procedures Procedure Name Priority Date/Time Associated Diagnosis Comments US OUTSIDE IMAGES 06/13/2024 2:04 PM EDT documented in this encounter Results * US OUTSIDE IMAGES (06/13/2024 2:04 PM EDT) Anatomical Region Laterality Modality Ultrasound 06/13/2024 2:04 PM EDT us External Provider IMG US PROCEDURES Final Result documented in this encounter Visit Diagnoses Not on filedocumented in this encounter Additional Health Concerns Assessment Noted Time A fall risk assessment has been complete d for the patient 04/28/2021 10:36 AM EST documented as of this encounter Care Teams Bag Machine Operator Relationship Specialty Start Date End Date Annmarie Moran APRN [facility] [place] [address] PCP - General 04/28/21 Nirseen Randolph MD [address] [facility] [address] [place] [address] Surgeon Neurosurgery 04/28/21 documented as of this encounter
--- OUTSIDE RECORDS SUMMARY | 2025-01-29 07:57 | XMS_ITS | Encounter Summary ---
Author Organization [facility] Address [address] [place] [address] Care Team Providers Care Photovoltaic Power Systems Engineer Name Role Phone Annmarie Moran APRN Primary Care Provider Nisreen Randolph MD Unavailable Encounter Details Date Type Department Care Team (Late st Contact Info) Description 06/06/2024 Orders Only External Location [address] [place] [address] Provider, External Social History Tobacco Use Types [...] Description 03/29/2025 11:00 AM EST Office Visit [facility] [address] [place] [address] [place] [phone] Cristofer Xiong MD [address] [place] [address] documented as of this encounter Procedures Procedure Name Priority Date/Time Associated Diagnosis Comments IR OUTSIDE IMAGES 06/06/2024 6:45 AM EDT documented in this encounter Results * IR OUTSIDE IMAGES (06/06/2024 6:45 AM EDT) Anatomical Region Laterality Modality X-Ray Angiograph y 06/06/2024 6:45 AM EDT us External Provider IMG IR PROCEDURES Final Result documented in this encounter Visit Diagnoses Not on filedocumented in this encounter Additional Health Concerns Assessment Noted Time A fall risk assessment has been complete d for the patient 04/28/2021 10:36 AM EST documented as of this encounter Care Teams Photovoltaic Power Systems Engineer Relationship Specialty Start Date End Date Annmarie Moran, [employer] HOUSE OPERATOR [address] [place] [id number] PCP - General 04/28/21 Nisreen Randolph MD [address] [facility] [address] [place] [address] Surgeon Neurosurgery 04/28/21 documented as of this encounter
--- NOTE | 2025-01-29 08:00 | US_ITS ---
FINAL REPORT CLINICAL HISTORY: CIRRHOSIS F/U COMPARISON: None submitted FINDINGS: RIGHT UPPER QUADRANT ULTRASOUND Technique: Ultrasound images of the right upper quadrant were obtained. There is coarsened echotexture to the liver, probably due to fatty infiltration. The gallbladder is distended. Common duct is normal. The right kidney is unremarkable. IMPRESSION: Fat liver. Distended gallbladder. Reviewed, Interpreted and Dictated by Rafael Leary MD Transcribed by Waleska Barillas Authenticated and [facility]
[2025-01-29 08:19] LABS: Hematocrit 49.6 % (42.0-52.0); Hemoglobin 16.8 g/dL (14.1-18.0); Immature Granulocytes % 0.9 %; Mean Corpuscular HGB Conc 33.9 g/dL (31.8-35.4); Mean Corpuscular Hemoglobin 28.9 pg (27.0-31.2); Mean Corpuscular Volume 85.2 fl (80-94); Nucleated Red Blood Cells % 0 %; Platelet Count 185 K/mm3 (142-424); Red Blood Count 5.82 M/mm3 (4.60-6.20); Red Cell Distribution Width-SD 47.8 fL; White Blood Count 5.9 K/mm3 (4.8-10.8)
[2025-01-29 08:22] LABS: Ammonia < 9 umol/L (9-30)
[2025-01-29 08:23] LABS: INR 1.04 (0.9-1.1); Prothrombin Time 11.5 seconds (10.1-12.5)
[2025-01-29 08:47] LABS: Alanine Aminotransferase 48 U/L (12-78); Albumin Level 4.2 g/dl (3.5-5.0); Albumin/Globulin Ratio 1.1 (1.1-1.8); Alkaline Phosphatase 286 U/L (38-126); Anion Gap 16.7 mEq/L (5-15); Aspartate Amino Transferase 41 U/L (17-59); Bilirubin,Total 0.7 mg/dl (0.2-1.3); Blood Urea Nitrogen 14 mg/dl (9-20); Calcium 9.2 mg/dl (8.4-10.2); Carbon Dioxide 24 mmol/L (22.0-30.0); Chloride 105 mmol/L (98-107); Creatinine,Serum 0.70 mg/dl (0.66-1.25); Estimated Glomerular Filt Rate 115 ml/min (>60); GFR (African American) 139 ML/MIN (>60); Globulin 3.8 g/dL (1.3-3.2); Glucose 169 mg/dl (74-100); Iron 73 ug/dL (49-181); Potassium 4.7 mmoL/L (3.5-5.1); Sodium 141 mmol/L (136-145); Total Protein,Serum 8.0 g/dl (6.3-8.2)
[2025-01-29 08:56] LABS: Total Iron Binding Capacity 403 ug/dL (261-462)
[2025-01-29 09:05] LABS: 25-OH Vitamin D, Total 52.4 ng/mL (30-100)
[2025-01-29 09:22] LABS: Ferritin 13.4 ng/ml (17.9-464)
== END 2025-01-29 23:59 | disposition home or self-care (01) ==
LOC: RAD 07:43
PROVIDERS: PCP Nurse Practitioner Family; Visit Provider Nurse Practitioner Family
DX: K74.60 Unspecified cirrhosis of liver (principal); K82.8 Other specified diseases of gallbladder
CPT/HCPCS: 36415; 76705; 80053; 82105; 82140; 82306; 82728; 83540; 83550; 85025; 85610